=== PATIENT | female | born 1945 | race Caucasian/White ===

== ENCOUNTER 2023-10-25 20:36 | Inpatient (IN) | payer BC, MEDICARE ==
[~2023-10-25] VITALS: Ht 152.4 cm; Wt 130.6 kg
[2023-10-25 21:06] LABS: BASO # 0.1 10^3/uL (0.0-0.2); BASO % 0.2 % (0.0-1.0); EOS # 0.1 10^3/uL (0.0-0.5); EOS % 0.3 % (0.0-3.0); HEMATOCRIT 27.1 % (36.0-47.0); HEMOGLOBIN 9.4 g/dl (12.0-15.5); LYMPH # 0.5 10^3/uL (1.5-5.0); LYMPH % 1.6 % (24.0-44.0); MEAN CORPUSCULAR HEMOGLOBIN 29.6 pg (27.0-33.0); MEAN CORPUSCULAR HGB CONC 34.7 g/dl (32.0-36.5); MEAN CORPUSCULAR VOLUME 85.2 fl (80.0-96.0); MONO # 0.7 10^3/uL (0.0-0.8); MONO % 2.1 % (2.0-8.0); NEUTROPHILS # 31.6 10^3/uL (1.5-8.5); NEUTROPHILS % 93.1 % (36.0-66.0); PLATELET COUNT, AUTOMATED 482 10^3/uL (150-450); RED BLOOD COUNT 3.18 10^6/uL (4.00-5.40)
[2023-10-25 21:20] LABS: WHITE BLOOD COUNT 33.9 10^3/uL (4.0-10.0)
[2023-10-25 21:40] LABS: CK-MB VALUE MASS < 1.0 NG/ML (<3.6); RSV AMPLIFICATION NEGATIVE (NEGATIVE)
[2023-10-25 21:41] LABS: LIPASE 24 U/L (12-53)
[2023-10-25 21:43] LABS: ALBUMIN 1.8 G/DL (3.2-5.2); ALKALINE PHOSPHATASE 121 U/L (46-116); ALT/SGPT 15 U/L (7.0-40); AST/SGOT 19 U/L (<34); BILIRUBIN,DIRECT 0.2 MG/DL (<0.4); BILIRUBIN,TOTAL 0.3 MG/DL (0.3-1.2); BLOOD UREA NITROGEN 41 MG/DL (9-23); CALCIUM LEVEL 8.2 MG/DL (8.3-10.6); CARBON DIOXIDE LEVEL 22 MMOL/L (20-31); CHLORIDE LEVEL 95 MMOL/L (98-107); CREATININE FOR GFR 2.16 MG/DL (0.55-1.30); GLOMERULAR FILTRATION RATE 23.6 (>39); GLUCOSE, FASTING 214 MG/DL (74-106); MAGNESIUM LEVEL 1.4 MG/DL (1.8-2.4); POTASSIUM SERUM 4.2 MMOL/L (3.5-5.1); SODIUM LEVEL 128 MMOL/L (136-145); TOTAL PROTEIN 5.5 G/DL (5.7-8.2)
[2023-10-25 21:44] LABS: THYROID STIMULATING HORMONE 1.428 uIU/ML (0.55-4.78)
[2023-10-25 21:45] LABS: FREE T4 0.68 NG/DL (0.89-1.76)
[2023-10-25 21:47] LABS: SALICYLATE LEVEL < 3.0 MG/DL (<30)
[2023-10-25 21:54] LABS: CPK CREATINE PHOSPHOKINASE 29 U/L (34-145); MB/CK RELATIVE INDEX 3.44 (< OR =4)
[2023-10-25 22:12] LABS: PARTIAL THROMBOPLASTIN TIME 32.3 SECONDS (24.8-34.2)
[2023-10-25 22:16] LABS: INR 1.45; PROTHROMBIN TIME 17.2 SECONDS (12.5-14.5)
[2023-10-25] MEDS: MAG SULF 1GM/100ML (MAG RUN) 1 GM in IV 1 EA IV ONE (22:35)
[2023-10-25] MEDS ORDERED: propofoL 200 MG/20 ML VIAL As Ordered ONE (22:53)
[2023-10-25] MEDS ORDERED: MIDAZOLAM INJ 2MG/2ML VIAL As Ordered ONE (22:53)
[2023-10-25] MEDS ORDERED: LIDOCAINE 2% 100MG/5ML SDV (FOR ANES.) As Ordered ONE (22:53)
[2023-10-25] MEDS ORDERED: fentaNYL 250 MCG/5 ML INJECTION As Ordered ONE (22:53)
[2023-10-25] MEDS ORDERED: ONDANSETRON 4MG 2ML VIAL As Ordered ONE (22:53)
[2023-10-25] MEDS ORDERED: ROCURONIUM BROMIDE 50MG/5ML VIAL As Ordered ONE (22:53)
[2023-10-25] MEDS: PIPERACILLIN/TAZOBACTAM SOD 4.5 GM in D5W MINI-BAG PLUS 50 ML IV ONE (22:55)
[2023-10-25] MEDS: NS 1,000 ML IV SCH (22:55)
[2023-10-25] MEDS ORDERED: MORPHINE 2 MG/ML 1ML VIAL IV PRN ×2 (23:10)
[2023-10-25 23:25] LABS: CK-MB VALUE MASS < 1.0 NG/ML (<3.6); CPK CREATINE PHOSPHOKINASE 45 U/L (34-145); MB/CK RELATIVE INDEX 2.22 (< OR =4)
[2023-10-25] MEDS ORDERED: ETOMIDATE INJ 20MG/10ML VIAL As Ordered ONE (23:38)
[2023-10-26] VITALS (27 sets, daily range): BP systolic 96–171; BP diastolic 51–72; TEMP 96.8–98; O2SAT 95–98
[2023-10-26] MEDS ORDERED: ACETAMINOPHEN 1000MG 100ML IV BAG As Ordered ONE (00:54)
[2023-10-26] MEDS ORDERED: hydrALAZINE 20MG/ML 1ML VIAL As Ordered ONE (01:03)
[2023-10-26] MEDS ORDERED: SUGAMMADEX SODIUM 500 MG/5 ML VIAL (BRIDION) As Ordered ONE (01:33)
[2023-10-26] MEDS ORDERED: GLUCAGON INJ 1MG VIAL SC PRN (02:55)
[2023-10-26] MEDS ORDERED: GLUCOSE 4 GM CHEW PO PRN (02:55)
[2023-10-26] MEDS: MORPHINE 2 MG/ML 1ML VIAL IV PRN (03:06)
[2023-10-26] MEDS ORDERED: fentaNYL 100 MCG/2 ML INJECTION IV PRN (03:10)
[2023-10-26] MEDS ORDERED: ONDANSETRON 4MG 2ML VIAL IV PRN (03:10)
[2023-10-26] MEDS ORDERED: MORPHINE 2 MG/ML 1ML VIAL IV PRN (03:10)
[2023-10-26] MEDS ORDERED: oxyCODONE 5MG TAB PO PRN (03:10)
[2023-10-26] MEDS: NS 1,000 ML IV SCH (03:26)
[2023-10-26] MEDS ORDERED: ARIC1TAB PO (03:43)
[2023-10-26] MEDS ORDERED: GLIP5TAB17 PO (03:43)
[2023-10-26] MEDS ORDERED: SYNT100T PO (03:43)
[2023-10-26] MEDS ORDERED: TRAZ-186 PO (03:43)
[2023-10-26] MEDS ORDERED: METF500T13 PO (03:43)
[2023-10-26] MEDS ORDERED: CITA20TA6 PO (03:43)
[2023-10-26] MEDS ORDERED: VERA240C3 PO (03:43)
[2023-10-26] MEDS ORDERED: MULT-40 PO (03:43)
[2023-10-26] MEDS ORDERED: OSTE5TAB PO (03:43)
[2023-10-26] MEDS ORDERED: HOME MED LIST COMPLETE! XX SCH (03:45)
[2023-10-26 03:50] LABS: HEMATOCRIT 26.8 % (36.0-47.0); MEAN CORPUSCULAR HEMOGLOBIN 29.1 pg (27.0-33.0); MEAN CORPUSCULAR HGB CONC 33.6 g/dl (32.0-36.5); MEAN CORPUSCULAR VOLUME 86.7 fl (80.0-96.0); PLATELET COUNT, AUTOMATED 436 10^3/uL (150-450); RED BLOOD COUNT 3.09 10^6/uL (4.00-5.40); WHITE BLOOD COUNT 26.7 10^3/uL (4.0-10.0)
[2023-10-26 04:16] LABS: ALBUMIN 1.6 G/DL (3.2-5.2); BILIRUBIN,TOTAL 0.3 MG/DL (0.3-1.2); CALCIUM LEVEL 7.5 MG/DL (8.3-10.6); CREATININE FOR GFR 2.32 MG/DL (0.55-1.30); GLOMERULAR FILTRATION RATE 21.7 (>39); MAGNESIUM LEVEL 1.3 MG/DL (1.8-2.4); POTASSIUM SERUM 4.3 MMOL/L (3.5-5.1); TOTAL PROTEIN 5.2 G/DL (5.7-8.2)
[2023-10-26] MEDS: FLUCONAZOLE 400 MG in IV 1 EA IV ONE (04:21)
[2023-10-26] MEDS: PIPERACILLIN/TAZOBACTAM SOD 2.25 GM in D5W MINI-BAG PLUS 50 ML IV SCH ×2 (04:27→12:23)
[2023-10-26] MEDS ORDERED: PIPERACILLIN/TAZOBACTAM SOD 3.375 GM in D5W MINI-BAG PLUS 50 ML IV SCH (05:00)
[2023-10-26] MEDS: INSULIN LISPRO (NovoLOG) PER UNIT SC SCH (06:00)
[2023-10-26] MEDS: PANTOPRAZOLE 40MG VIAL IV SCH (08:03)
[2023-10-26] MEDS: HYDROMORPHONE HCL 0.5 MG/ 0.5 ML SYRINGE IV PRN ×2 (08:04→21:14)
[2023-10-26] MEDS: SENOKOT S TAB PO SCH (08:04)
[2023-10-26] MEDS: ENOXAPARIN 30MG/0.3ML SYRINGE (J1650 PER 10MG) SC SCH (08:04)
[2023-10-26] MEDS: MAG SULF 1GM/100ML (MAG RUN) 1 GM in IV 1 EA IV ONE (09:39)
[2023-10-26] MEDS: LR 500 ML IV ONE (12:46)
[2023-10-26 14:43] LABS: CALCIUM LEVEL 7.5 MG/DL (8.3-10.6); CREATININE FOR GFR 2.73 MG/DL (0.55-1.30); POTASSIUM SERUM 4.8 MMOL/L (3.5-5.1)
[2023-10-26] MEDS: NS 1,000 ML IV ONE (15:41)
[2023-10-27] VITALS (20 sets, daily range): BP systolic 139–206; BP diastolic 63–83; TEMP 97.4–98.7; O2SAT 96–99
[2023-10-27 05:42] LABS: MEAN CORPUSCULAR HGB CONC 32.5 g/dl (32.0-36.5); MEAN CORPUSCULAR VOLUME 89.2 fl (80.0-96.0); PLATELET COUNT, AUTOMATED 372 10^3/uL (150-450); RED BLOOD COUNT 2.31 10^6/uL (4.00-5.40); WHITE BLOOD COUNT 20.6 10^3/uL (4.0-10.0)
[2023-10-27 05:44] LABS: HEMATOCRIT 20.6 % (36.0-47.0); HEMOGLOBIN 6.7 g/dl (12.0-15.5)
[2023-10-27 06:08] LABS: ALBUMIN 1.3 G/DL (3.2-5.2); ALKALINE PHOSPHATASE 87 U/L (46-116); ALT/SGPT 17 U/L (7.0-40); AST/SGOT 25 U/L (<34); BILIRUBIN,TOTAL < 0.2 MG/DL (0.3-1.2); BLOOD UREA NITROGEN 52 MG/DL (9-23); CALCIUM LEVEL 7.1 MG/DL (8.3-10.6); CARBON DIOXIDE LEVEL 21 MMOL/L (20-31); CHLORIDE LEVEL 104 MMOL/L (98-107); CREATININE FOR GFR 3.34 MG/DL (0.55-1.30); GLOMERULAR FILTRATION RATE 14.3 (>39); GLUCOSE, FASTING 137 MG/DL (74-106); MAGNESIUM LEVEL 1.6 MG/DL (1.8-2.4); POTASSIUM SERUM 4.7 MMOL/L (3.5-5.1); SODIUM LEVEL 134 MMOL/L (136-145); TOTAL PROTEIN 4.6 G/DL (5.7-8.2)
[2023-10-27] MEDS: ONDANSETRON 4MG 2ML VIAL IV PRN (06:09)
[2023-10-27] MEDS: FLUCONAZOLE 200 MG in IV 1 EA IV SCH (06:38)
[2023-10-27 08:26] LABS: HEMOGLOBIN 6.9 g/dl (12.0-15.5)
[2023-10-27] MEDS: NS 1,000 ML IV ONE (08:32)
[2023-10-27] MEDS: MAG SULF 1GM/100ML (MAG RUN) 1 GM in IV 1 EA IV ONE (10:49)
[2023-10-27] MEDS: amLODIPine 5 MG TAB PO SCH ×2 (11:49→20:34)
[2023-10-27] MEDS: cloNIDine 0.2 MG TAB PO ONE (13:58)
[2023-10-27] MEDS: **hydrALAZINE HCL** 25 MG TAB PO SCH (18:00)
[2023-10-27] MEDS: NS 1,000 ML IV SCH (20:35)
[2023-10-27 20:41] LABS: HEMATOCRIT 29.7 % (36.0-47.0)
[2023-10-27 20:42] LABS: HEMOGLOBIN 9.8 g/dl (12.0-15.5)
[2023-10-28] VITALS (9 sets, daily range): BP systolic 120–182; BP diastolic 51–122; TEMP 97.4–98.3; O2SAT 96–99
[2023-10-28] MEDS ORDERED: METOPROLOL 5 MG/5 ML VIAL IV STA (00:57)
[2023-10-28 04:09] LABS: HEMATOCRIT 27.2 % (36.0-47.0); HEMOGLOBIN 9.2 g/dl (12.0-15.5); MEAN CORPUSCULAR HGB CONC 33.8 g/dl (32.0-36.5); MEAN CORPUSCULAR VOLUME 88.6 fl (80.0-96.0); PLATELET COUNT, AUTOMATED 308 10^3/uL (150-450); RED BLOOD COUNT 3.07 10^6/uL (4.00-5.40)
[2023-10-28 04:47] LABS: ALBUMIN 1.3 G/DL (3.2-5.2); BILIRUBIN,TOTAL 0.4 MG/DL (0.3-1.2); CALCIUM LEVEL 7.3 MG/DL (8.3-10.6); CREATININE FOR GFR 3.77 MG/DL (0.55-1.30); GLOMERULAR FILTRATION RATE 12.4 (>39); MAGNESIUM LEVEL 1.8 MG/DL (1.8-2.4); POTASSIUM SERUM 4.4 MMOL/L (3.5-5.1); TOTAL PROTEIN 4.7 G/DL (5.7-8.2)
[2023-10-28] MEDS: FUROSEMIDE 100MG/10ML VIAL IV ONE (11:13)
[2023-10-28] MEDS: SODIUM BICARBONATE 150 MEQ in STERILE WATER LITER BAG 1,000 ML IV SCH (12:34)
[2023-10-29] VITALS (10 sets, daily range): BP systolic 144–170; BP diastolic 70–93; TEMP 97.4–98.9; O2SAT 94–100
[2023-10-29 06:08] LABS: HEMATOCRIT 27.2 % (36.0-47.0); HEMOGLOBIN 9.1 g/dl (12.0-15.5); MEAN CORPUSCULAR HEMOGLOBIN 29.5 pg (27.0-33.0); MEAN CORPUSCULAR HGB CONC 33.5 g/dl (32.0-36.5); MEAN CORPUSCULAR VOLUME 88.3 fl (80.0-96.0); PLATELET COUNT, AUTOMATED 297 10^3/uL (150-450); RED BLOOD COUNT 3.08 10^6/uL (4.00-5.40); WHITE BLOOD COUNT 16.5 10^3/uL (4.0-10.0)
[2023-10-29 06:36] LABS: ALBUMIN 1.2 G/DL (3.2-5.2); BILIRUBIN,TOTAL 0.3 MG/DL (0.3-1.2); CALCIUM LEVEL 7.5 MG/DL (8.3-10.6); CREATININE FOR GFR 4.19 MG/DL (0.55-1.30); MAGNESIUM LEVEL 1.7 MG/DL (1.8-2.4); TOTAL PROTEIN 4.6 G/DL (5.7-8.2)
[2023-10-29] MEDS: MAG SULF 1GM/100ML (MAG RUN) 1 GM in IV 1 EA IV ONE (10:15)
[2023-10-29] MEDS: **hydrALAZINE** 50 MG TAB PO SCH (12:22)
[2023-10-29] MEDS: ACETAMINOPHEN *IV* 1,000 MG in IV 1 EA IV PRN (13:10)
[2023-10-29] MEDS: HYDROMORPHONE HCL 0.5 MG/ 0.5 ML SYRINGE IV PRN (14:10)
[2023-10-29 15:29] LABS: CK-MB VALUE MASS < 1.0 NG/ML (<3.6); CPK CREATINE PHOSPHOKINASE 17 U/L (34-145); MB/CK RELATIVE INDEX 5.88 (< OR =4)
[2023-10-29 18:46] LABS: CK-MB VALUE MASS < 1.0 NG/ML (<3.6)
[2023-10-29 18:49] LABS: CPK CREATINE PHOSPHOKINASE 24 U/L (34-145); MB/CK RELATIVE INDEX 4.16 (< OR =4)
[2023-10-30] VITALS (25 sets, daily range): BP systolic 142–180; BP diastolic 57–77; TEMP 97–98.3; O2SAT 95–99
[2023-10-30 05:20] LABS: HEMATOCRIT 26.7 % (36.0-47.0); HEMOGLOBIN 9.3 g/dl (12.0-15.5); MEAN CORPUSCULAR HEMOGLOBIN 29.9 pg (27.0-33.0); MEAN CORPUSCULAR HGB CONC 34.8 g/dl (32.0-36.5); MEAN CORPUSCULAR VOLUME 85.9 fl (80.0-96.0); PLATELET COUNT, AUTOMATED 296 10^3/uL (150-450); RED BLOOD COUNT 3.11 10^6/uL (4.00-5.40); WHITE BLOOD COUNT 17.4 10^3/uL (4.0-10.0)
[2023-10-30 06:01] LABS: ALBUMIN 1.1 G/DL (3.2-5.2); BILIRUBIN,TOTAL 0.3 MG/DL (0.3-1.2); CALCIUM LEVEL 7.4 MG/DL (8.3-10.6); CREATININE FOR GFR 4.18 MG/DL (0.55-1.30); MAGNESIUM LEVEL 1.7 MG/DL (1.8-2.4); POTASSIUM SERUM 3.7 MMOL/L (3.5-5.1); TOTAL PROTEIN 4.5 G/DL (5.7-8.2)
[2023-10-30] MEDS: MAG SULF 1GM/100ML (MAG RUN) 1 GM in IV 1 EA IV ONE (08:22)
[2023-10-30] MEDS: SUCRALFATE 1 GM TAB PO SCH (11:14)
[2023-10-30] MEDS: SODIUM BICARBONATE 75 MEQ, POTASSIUM CHLORIDE INJ 10 MEQ in NS 0.45% 1,000 ML IV SCH (12:36)
[2023-10-31] VITALS (8 sets, daily range): BP systolic 133–165; BP diastolic 52–70; TEMP 97.3–98; O2SAT 92–97
[2023-10-31 06:53] LABS: HEMATOCRIT 26.6 % (36.0-47.0); HEMOGLOBIN 9.2 g/dl (12.0-15.5); MEAN CORPUSCULAR HEMOGLOBIN 29.8 pg (27.0-33.0); MEAN CORPUSCULAR HGB CONC 34.6 g/dl (32.0-36.5); MEAN CORPUSCULAR VOLUME 86.1 fl (80.0-96.0); PLATELET COUNT, AUTOMATED 304 10^3/uL (150-450); RED BLOOD COUNT 3.09 10^6/uL (4.00-5.40); WHITE BLOOD COUNT 17.7 10^3/uL (4.0-10.0)
[2023-10-31 07:31] LABS: ALBUMIN 1.1 G/DL (3.2-5.2); BILIRUBIN,TOTAL 0.2 MG/DL (0.3-1.2); CALCIUM LEVEL 7.6 MG/DL (8.3-10.6); CREATININE FOR GFR 3.91 MG/DL (0.55-1.30); GLOMERULAR FILTRATION RATE 11.9 (>39); MAGNESIUM LEVEL 1.7 MG/DL (1.8-2.4); POTASSIUM SERUM 3.3 MMOL/L (3.5-5.1); TOTAL PROTEIN 4.7 G/DL (5.7-8.2)
[2023-10-31] MEDS: MAG SULF 1GM/100ML (MAG RUN) 1 GM in IV 1 EA IV ONE (09:30)
[2023-10-31] MEDS: KCL 20MEQ in NS 1000ML 1,000 ML IV SCH (09:31)
[2023-10-31] MEDS ORDERED: LIDOCAINE 1% MDV 20ML VIAL As Ordered ONE (11:17)
[2023-10-31] MEDS: oxyCODONE 5MG TAB PO SCH (12:49)
[2023-10-31] MEDS: AMINO AC/ELECTROLYTE/DEX/CALC 2,000 ML IV SCH (18:46)
[2023-10-31] MEDS: FAT EMULSION IV 250 ML IV ONE (18:47)
[2023-10-31] MEDS: HYDROMORPHONE HCL 0.5 MG/ 0.5 ML SYRINGE IV PRN (18:56)
[2023-11-01] VITALS (14 sets, daily range): BP systolic 157–170; BP diastolic 68–76; TEMP 97.3–97.8; O2SAT 94–98
[2023-11-01] MEDS: SODIUM CHLORIDE 0.9% INJ 10 ML SYR IV SCH (00:29)
[2023-11-01 06:10] LABS: MEAN CORPUSCULAR HEMOGLOBIN 29.9 pg (27.0-33.0); MEAN CORPUSCULAR HGB CONC 33.3 g/dl (32.0-36.5); MEAN CORPUSCULAR VOLUME 89.7 fl (80.0-96.0); PLATELET COUNT, AUTOMATED 282 10^3/uL (150-450); RED BLOOD COUNT 3.01 10^6/uL (4.00-5.40)
[2023-11-01 06:38] LABS: BILIRUBIN,TOTAL 0.2 MG/DL (0.3-1.2); CALCIUM LEVEL 7.5 MG/DL (8.3-10.6); CREATININE FOR GFR 3.53 MG/DL (0.55-1.30); GLOMERULAR FILTRATION RATE 13.4 (>39); MAGNESIUM LEVEL 1.7 MG/DL (1.8-2.4); POTASSIUM SERUM 3.6 MMOL/L (3.5-5.1); TOTAL PROTEIN 4.3 G/DL (5.7-8.2)
[2023-11-01] MEDS: MAG SULF 1GM/100ML (MAG RUN) 1 GM in IV 1 EA IV ONE (08:15)
[2023-11-01 12:27] LABS: PHOSPHORUS LEVEL 4.8 MG/DL (2.4-5.1)
[2023-11-01] MEDS: ACETAMINOPHEN *IV* 1,000 MG in IV 1 EA IV ONE (20:02)
[2023-11-01] MEDS: FAT EMULSION IV 250 ML IV ONE (20:43)
[2023-11-01] MEDS: AMINO AC/ELECTROLYTE/DEX/CALC 2,000 ML IV SCH (20:43)
[2023-11-02 05:39] VITALS: BP 133/56; TEMP 97.7; O2SAT 97
[2023-11-02] MEDS: LEVEMIR (INSULIN DETEMIR) 1 UNITS/0.01ML SC SCH (10:09)
[2023-11-02 12:00] VITALS: BP 147/56; TEMP 98.1; O2SAT 97
[2023-11-02 12:20] LABS: ALBUMIN 0.9 G/DL (3.2-5.2); CALCIUM LEVEL 7.6 MG/DL (8.3-10.6); CREATININE FOR GFR 3.4 MG/DL (0.55-1.30); PHOSPHORUS LEVEL 4.9 MG/DL (2.4-5.1); POTASSIUM SERUM 4.1 MMOL/L (3.5-5.1)
[2023-11-02] MEDS: oxyCODONE 5MG TAB PO SCH (13:00)
[2023-11-02 18:00] VITALS: BP 148/57; TEMP 97.9; O2SAT 96
[2023-11-02] MEDS: MULTIVITAMIN -ADULT INJECTION 10 ML, ZINC/COPPER/MANGANESE/SELENIUM 1 ML in AMINO AC/EL... IV SCH (19:40)
[2023-11-02] MEDS: FAT EMULSION IV 250 ML IV ONE (19:40)
[2023-11-02 21:50] VITALS: BP 150/55; TEMP 97.9; O2SAT 97
[2023-11-03 05:44] LABS: ALBUMIN 0.9 G/DL (3.2-5.2); CALCIUM LEVEL 8.1 MG/DL (8.3-10.6); CREATININE FOR GFR 3.53 MG/DL (0.55-1.30); GLOMERULAR FILTRATION RATE 13.4 (>39); MAGNESIUM LEVEL 1.7 MG/DL (1.8-2.4); PHOSPHORUS LEVEL 4.8 MG/DL (2.4-5.1); POTASSIUM SERUM 4.2 MMOL/L (3.5-5.1)
[2023-11-03 06:34] VITALS: BP 151/74; TEMP 97.9; O2SAT 96
[2023-11-03] MEDS: MAG SULF 1GM/100ML (MAG RUN) 1 GM in IV 1 EA IV ONE (08:59)
[2023-11-03] MEDS: FLUCONAZOLE 100 MG TAB PO SCH (09:01)
[2023-11-03 09:40] VITALS: O2SAT 94
[2023-11-03 09:48] LABS: ABG BASE EXCESS -1.5 (-2.0-2.0); ABG HCO3 23.8 MMOL/L (22.0-26.0); ABG O2 SATURATION 95.7 % (95.0-99.0); ABG PARTIAL PRESSURE CO2 42.4 mmHg (35.0-45.0); ABG PARTIAL PRESSURE O2 78.3 mmHg (75.0-100.0); ABG STANDARD HCO3 23.2 MMOL/L. (22.0-26.0); ABG TOTAL CO2 25.1 MMOL/L (23.0-31.0); ABG pH (ARTERIAL) 7.367 UNITS (7.350-7.450)
[2023-11-03] MEDS: GASTROGRAFIN SOLUTION 30ML PO SCH (11:58)
[2023-11-03] MEDS: NS 1,000 ML IV SCH (12:00)
[2023-11-03 13:15] VITALS: BP 152/103; TEMP 97.5; O2SAT 94
[2023-11-03 13:20] VITALS: BP 146/59
[2023-11-03] MEDS ORDERED: ISOVUE-370 76% 100ML VIAL As Ordered ONE (13:27)
[2023-11-03] MEDS: AMINO AC/ELECTROLYTE/DEX/CALC 2,000 ML IV SCH (17:46)
[2023-11-03] MEDS: FAT EMULSION IV 250 ML IV ONE (17:46)
[2023-11-03 17:58] VITALS: BP 150/60
[2023-11-03 20:37] VITALS: BP 154/59; TEMP 98.4; O2SAT 93
[2023-11-03] MEDS: SODIUM CHLORIDE 0.9% INJ 10 ML SYR IV PRN (21:55)
[2023-11-04 06:45] LABS: HEMATOCRIT 25.1 % (36.0-47.0); HEMOGLOBIN 8.2 g/dl (12.0-15.5); MEAN CORPUSCULAR HEMOGLOBIN 29.7 pg (27.0-33.0); MEAN CORPUSCULAR HGB CONC 32.7 g/dl (32.0-36.5); MEAN CORPUSCULAR VOLUME 90.9 fl (80.0-96.0); PLATELET COUNT, AUTOMATED 239 10^3/uL (150-450); RED BLOOD COUNT 2.76 10^6/uL (4.00-5.40); WHITE BLOOD COUNT 20.5 10^3/uL (4.0-10.0)
[2023-11-04 06:54] VITALS: BP 181/68; TEMP 97.9; O2SAT 93
[2023-11-04 07:07] LABS: CALCIUM LEVEL 7.4 MG/DL (8.3-10.6); CREATININE FOR GFR 3.36 MG/DL (0.55-1.30); GLOMERULAR FILTRATION RATE 14.2 (>39); POTASSIUM SERUM 4.2 MMOL/L (3.5-5.1)
[2023-11-04 07:24] LABS: ATYPICAL LYMPH 1 % (0-5); EOSINOPHILS 4 % (0-3); LYMPHOCYTES 3 % (16-44); METAMYELOCYTES 2 % (0-0); MONOCYTES 5 % (0-5); NEUTROPHILS 83 % (28-66)
[2023-11-04 07:27] LABS: PLATELET CLUMPS SMALL AMT; PLATELET ESTIMATE NORMAL (NORMAL)
[2023-11-04] MEDS ORDERED: ISOVUE-300 61% 100ML VIAL As Ordered ONE (09:56)
[2023-11-04] MEDS ORDERED: HYDROMORPHONE HCL 0.5 MG/ 0.5 ML SYRINGE As Ordered ONE (10:30)
[2023-11-04 14:00] VITALS: BP 157/61; TEMP 97.7; O2SAT 97
[2023-11-04] MEDS: oxyCODONE 5MG TAB PO SCH (16:00)
[2023-11-04] MEDS ORDERED: INSULIN LISPRO (NovoLOG) PER UNIT SC SCH (18:00)
[2023-11-04] MEDS: FAT EMULSION IV 250 ML IV ONE (18:35)
[2023-11-04] MEDS: MULTIVITAMIN -ADULT INJECTION 10 ML, ZINC/COPPER/MANGANESE/SELENIUM 1 ML in AMINO AC/EL... IV SCH (18:35)
[2023-11-04 19:57] VITALS: BP 153/62; TEMP 97.9; O2SAT 95
[2023-11-05 06:00] VITALS: BP 158/88; TEMP 98.4; O2SAT 94
[2023-11-05 06:53] LABS: BASO % 0.2 % (0.0-1.0); EOS # 0.6 10^3/uL (0.0-0.5); EOS % 3.5 % (0.0-3.0); HEMATOCRIT 23.4 % (36.0-47.0); HEMOGLOBIN 7.6 g/dl (12.0-15.5); LYMPH # 0.7 10^3/uL (1.5-5.0); MEAN CORPUSCULAR HEMOGLOBIN 29.5 pg (27.0-33.0); MEAN CORPUSCULAR HGB CONC 32.5 g/dl (32.0-36.5); MEAN CORPUSCULAR VOLUME 90.7 fl (80.0-96.0); MONO # 1.5 10^3/uL (0.0-0.8); MONO % 8.4 % (2.0-8.0); NEUTROPHILS % 80.1 % (36.0-66.0); PLATELET COUNT, AUTOMATED 237 10^3/uL (150-450); RED BLOOD COUNT 2.58 10^6/uL (4.00-5.40); WHITE BLOOD COUNT 17.5 10^3/uL (4.0-10.0)
[2023-11-05 07:20] LABS: CALCIUM LEVEL 8.2 MG/DL (8.3-10.6); CREATININE FOR GFR 3.2 MG/DL (0.55-1.30); POTASSIUM SERUM 4.2 MMOL/L (3.5-5.1)
[2023-11-05 08:17] LABS: MAGNESIUM LEVEL 1.8 MG/DL (1.8-2.4)
[2023-11-05] MEDS: LEVEMIR (INSULIN DETEMIR) 1 UNITS/0.01ML SC SCH (08:29)
[2023-11-05 14:00] VITALS: BP 156/53; TEMP 98.4; O2SAT 93
[2023-11-05] MEDS: AMINO AC/ELECTROLYTE/DEX/CALC 2,000 ML IV SCH (17:44)
[2023-11-05] MEDS: FAT EMULSION IV 250 ML IV ONE (17:44)
[2023-11-05] MEDS ORDERED: INSULIN LISPRO (NovoLOG) PER UNIT SC SCH (18:00)
[2023-11-05 19:48] VITALS: BP 161/62; TEMP 97.9; O2SAT 93
[2023-11-06] VITALS (7 sets, daily range): BP systolic 154–165; BP diastolic 57–69; TEMP 98.2–98.6; O2SAT 92–94
[2023-11-06 06:07] LABS: BASO # 0.1 10^3/uL (0.0-0.2); BASO % 0.4 % (0.0-1.0); EOS # 0.7 10^3/uL (0.0-0.5); EOS % 4.5 % (0.0-3.0); HEMATOCRIT 22.7 % (36.0-47.0); HEMOGLOBIN 7.4 g/dl (12.0-15.5); LYMPH # 0.9 10^3/uL (1.5-5.0); LYMPH % 5.6 % (24.0-44.0); MEAN CORPUSCULAR HEMOGLOBIN 29.8 pg (27.0-33.0); MEAN CORPUSCULAR HGB CONC 32.6 g/dl (32.0-36.5); MEAN CORPUSCULAR VOLUME 91.5 fl (80.0-96.0); MONO # 1.6 10^3/uL (0.0-0.8); MONO % 9.6 % (2.0-8.0); NEUTROPHILS # 12.3 10^3/uL (1.5-8.5); NEUTROPHILS % 75.5 % (36.0-66.0); PLATELET COUNT, AUTOMATED 281 10^3/uL (150-450); RED BLOOD COUNT 2.48 10^6/uL (4.00-5.40); WHITE BLOOD COUNT 16.3 10^3/uL (4.0-10.0)
[2023-11-06 06:41] LABS: CALCIUM LEVEL 8.4 MG/DL (8.3-10.6); CREATININE FOR GFR 3.06 MG/DL (0.55-1.30); GLOMERULAR FILTRATION RATE 15.8 (>39); POTASSIUM SERUM 4.2 MMOL/L (3.5-5.1)
[2023-11-06] MEDS: LEVEMIR (INSULIN DETEMIR) 1 UNITS/0.01ML SC SCH (08:27)
[2023-11-06] MEDS ORDERED: INSULIN LISPRO (NovoLOG) PER UNIT SC SCH (18:00)
[2023-11-06] MEDS: FAT EMULSION IV 250 ML IV ONE (18:03)
[2023-11-06] MEDS: AMINO AC/ELECTROLYTE/DEX/CALC 2,000 ML IV ONE (18:03)
[2023-11-06 19:07] LABS: MEAN CORPUSCULAR HEMOGLOBIN 29.1 pg (27.0-33.0); MEAN CORPUSCULAR VOLUME 90.9 fl (80.0-96.0); PLATELET COUNT, AUTOMATED 309 10^3/uL (150-450); RED BLOOD COUNT 2.75 10^6/uL (4.00-5.40); WHITE BLOOD COUNT 16.7 10^3/uL (4.0-10.0)
[2023-11-07 06:00] VITALS: BP 153/62; TEMP 97.9; O2SAT 97
[2023-11-07 06:06] LABS: HEMATOCRIT 25.8 % (36.0-47.0); HEMOGLOBIN 8.3 g/dl (12.0-15.5); MEAN CORPUSCULAR HGB CONC 32.2 g/dl (32.0-36.5); MEAN CORPUSCULAR VOLUME 90.2 fl (80.0-96.0); PLATELET COUNT, AUTOMATED 313 10^3/uL (150-450); RED BLOOD COUNT 2.86 10^6/uL (4.00-5.40)
[2023-11-07 06:33] LABS: CALCIUM LEVEL 8.3 MG/DL (8.3-10.6); CREATININE FOR GFR 2.95 MG/DL (0.55-1.30); GLOMERULAR FILTRATION RATE 16.5 (>39); POTASSIUM SERUM 4.2 MMOL/L (3.5-5.1)
[2023-11-07 06:53] LABS: ATYPICAL LYMPH 4 % (0-5); EOSINOPHILS 6 % (0-3); LYMPHOCYTES 6 % (16-44); METAMYELOCYTES 2 % (0-0); MONOCYTES 8 % (0-5); NEUTROPHILS 72 % (28-66); PROMYELOCYTES 1 % (0-0)
[2023-11-07 06:54] LABS: PLATELET ESTIMATE NORMAL (NORMAL)
[2023-11-07 13:57] VITALS: BP 162/68; TEMP 97.7; O2SAT 95
[2023-11-07] MEDS: AMINO AC/ELECTROLYTE/DEX/CALC 1,000 ML IV SCH (15:21)
[2023-11-07] MEDS: AMINO AC/ELECTROLYTE/DEX/CALC 2,000 ML IV SCH (18:40)
[2023-11-07] MEDS: FAT EMULSION IV 250 ML IV ONE (18:41)
[2023-11-07 20:00] VITALS: O2SAT 95
[2023-11-07 20:13] VITALS: BP 153/122; TEMP 97.9; O2SAT 94
[2023-11-07 21:40] VITALS: BP 167/79
[2023-11-08] MEDS: traZODone 25MG PER 1/2 TABLET PO ONE (00:37)
[2023-11-08] MEDS: METOCLOPRAMIDE INJ 10MG/2ML VIAL IV ONE (02:00)
[2023-11-08 06:00] VITALS: BP 164/57; TEMP 97.9; O2SAT 95
[2023-11-08 07:48] LABS: BASO # 0.1 10^3/uL (0.0-0.2); BASO % 0.9 % (0.0-1.0); EOS # 0.5 10^3/uL (0.0-0.5); EOS % 4.6 % (0.0-3.0); LYMPH # 0.7 10^3/uL (1.5-5.0); MEAN CORPUSCULAR HEMOGLOBIN 28.8 pg (27.0-33.0); MEAN CORPUSCULAR VOLUME 89.9 fl (80.0-96.0); MONO # 1.2 10^3/uL (0.0-0.8); MONO % 10.1 % (2.0-8.0); NEUTROPHILS # 8.4 10^3/uL (1.5-8.5); NEUTROPHILS % 74.3 % (36.0-66.0); PLATELET COUNT, AUTOMATED 337 10^3/uL (150-450); RED BLOOD COUNT 2.78 10^6/uL (4.00-5.40); WHITE BLOOD COUNT 11.4 10^3/uL (4.0-10.0)
[2023-11-08 08:00] VITALS: BP 200/60; TEMP 98; O2SAT 95
[2023-11-08 08:22] LABS: CALCIUM LEVEL 8.4 MG/DL (8.3-10.6); CREATININE FOR GFR 2.78 MG/DL (0.55-1.30); GLOMERULAR FILTRATION RATE 17.6 (>39); POTASSIUM SERUM 4.4 MMOL/L (3.5-5.1)
[2023-11-08] MEDS: FUROSEMIDE 40MG/4ML VIAL IV ONE (13:16)
[2023-11-08] MEDS: AMINO AC/ELECTROLYTE/DEX/CALC 1,000 ML IV SCH (16:39)
[2023-11-08] MEDS: INSULIN LISPRO (NovoLOG) PER UNIT SC SCH (18:00)
[2023-11-08] MEDS: FAT EMULSION IV 250 ML IV ONE (18:56)
[2023-11-08] MEDS: AMINO AC/ELECTROLYTE/DEX/CALC 2,000 ML IV SCH (18:56)
[2023-11-08 20:38] VITALS: BP 154/85; TEMP 97.5; O2SAT 95
[2023-11-08] MEDS: traZODone 25MG PER 1/2 TABLET PO SCH (21:43)
[2023-11-09 06:00] VITALS: BP 157/63; TEMP 97.4; O2SAT 94
[2023-11-09] MEDS: LEVOTHYROXINE 100MCG TABLET (0.1MG) PO SCH (06:21)
[2023-11-09 07:14] LABS: BASO # 0.1 10^3/uL (0.0-0.2); BASO % 0.9 % (0.0-1.0); EOS # 0.6 10^3/uL (0.0-0.5); HEMATOCRIT 25.9 % (36.0-47.0); HEMOGLOBIN 8.4 g/dl (12.0-15.5); LYMPH # 0.8 10^3/uL (1.5-5.0); LYMPH % 6.2 % (24.0-44.0); MEAN CORPUSCULAR HEMOGLOBIN 29.2 pg (27.0-33.0); MEAN CORPUSCULAR HGB CONC 32.4 g/dl (32.0-36.5); MEAN CORPUSCULAR VOLUME 89.9 fl (80.0-96.0); MONO # 1.2 10^3/uL (0.0-0.8); MONO % 9.5 % (2.0-8.0); NEUTROPHILS % 74.7 % (36.0-66.0); PLATELET COUNT, AUTOMATED 372 10^3/uL (150-450); RED BLOOD COUNT 2.88 10^6/uL (4.00-5.40); WHITE BLOOD COUNT 12.1 10^3/uL (4.0-10.0)
[2023-11-09 07:23] LABS: INR 1.42; PROTHROMBIN TIME 16.9 SECONDS (12.5-14.5)
[2023-11-09 07:24] LABS: PARTIAL THROMBOPLASTIN TIME 65.2 SECONDS (24.8-34.2)
[2023-11-09 07:40] LABS: CALCIUM LEVEL 8.4 MG/DL (8.3-10.6); CREATININE FOR GFR 2.71 MG/DL (0.55-1.30); GLOMERULAR FILTRATION RATE 18.2 (>39); POTASSIUM SERUM 4.3 MMOL/L (3.5-5.1)
[2023-11-09] MEDS: CitaloPRAM (CeleXA) 20 MG TAB PO SCH (09:43)
[2023-11-09] MEDS: FUROSEMIDE 100MG/10ML VIAL IV ONE (12:37)
[2023-11-09 14:33] VITALS: BP 141/60; TEMP 98.4; O2SAT 94
[2023-11-09] MEDS: AMINO AC/ELECTROLYTE/DEX/CALC 1,000 ML IV SCH (16:56)
[2023-11-09] MEDS: FAT EMULSION IV 250 ML IV ONE (18:16)
[2023-11-09] MEDS: MULTIVITAMIN -ADULT INJECTION 10 ML, ZINC/COPPER/MANGANESE/SELENIUM 1 ML in AMINO AC/EL... IV SCH (18:16)
[2023-11-09 21:40] VITALS: BP 152/101; TEMP 97.3; O2SAT 95
[2023-11-09] MEDS: DONEPEZIL 5 MG TAB PO SCH (21:44)
[2023-11-10 05:55] VITALS: BP 157/65; TEMP 97.7; O2SAT 94
[2023-11-10 06:14] LABS: BASO # 0.1 10^3/uL (0.0-0.2); BASO % 0.7 % (0.0-1.0); EOS # 0.6 10^3/uL (0.0-0.5); EOS % 6.3 % (0.0-3.0); HEMATOCRIT 23.9 % (36.0-47.0); HEMOGLOBIN 7.8 g/dl (12.0-15.5); LYMPH # 0.8 10^3/uL (1.5-5.0); LYMPH % 7.5 % (24.0-44.0); MEAN CORPUSCULAR HEMOGLOBIN 29.7 pg (27.0-33.0); MEAN CORPUSCULAR HGB CONC 32.6 g/dl (32.0-36.5); MEAN CORPUSCULAR VOLUME 90.9 fl (80.0-96.0); MONO # 0.9 10^3/uL (0.0-0.8); MONO % 9.3 % (2.0-8.0); NEUTROPHILS # 7.4 10^3/uL (1.5-8.5); NEUTROPHILS % 73.1 % (36.0-66.0); PLATELET COUNT, AUTOMATED 356 10^3/uL (150-450); RED BLOOD COUNT 2.63 10^6/uL (4.00-5.40); WHITE BLOOD COUNT 10.1 10^3/uL (4.0-10.0)
[2023-11-10 06:34] LABS: CALCIUM LEVEL 8.2 MG/DL (8.3-10.6); CREATININE FOR GFR 2.59 MG/DL (0.55-1.30); GLOMERULAR FILTRATION RATE 19.1 (>39); POTASSIUM SERUM 4.1 MMOL/L (3.5-5.1)
[2023-11-10] MEDS: LEVEMIR (INSULIN DETEMIR) 1 UNITS/0.01ML SC SCH ×2 (09:11→21:48)
[2023-11-10] MEDS: FUROSEMIDE 100MG/10ML VIAL IV ONE (11:14)
[2023-11-10 14:00] VITALS: BP 158/63; TEMP 97.5; O2SAT 93
[2023-11-10] MEDS: INSULIN LISPRO (NovoLOG) PER UNIT SC SCH (18:00)
[2023-11-10] MEDS: FAT EMULSION IV 250 ML IV ONE (18:44)
[2023-11-10] MEDS: AMINO AC/ELECTROLYTE/DEX/CALC 1,000 ML IV ONE (18:46)
[2023-11-10 21:46] VITALS: BP 120/64; TEMP 97.7; O2SAT 94
[2023-11-11 06:20] VITALS: BP 133/67; TEMP 97.8; O2SAT 94
[2023-11-11] MEDS: AMINO AC/ELECTROLYTE/DEX/CALC 2,000 ML IV SCH (07:39)
[2023-11-11 08:00] VITALS: BP 140/61; TEMP 97.9; O2SAT 94
[2023-11-11 08:26] LABS: BASO # 0.1 10^3/uL (0.0-0.2); BASO % 1.2 % (0.0-1.0); EOS # 0.7 10^3/uL (0.0-0.5); EOS % 6.8 % (0.0-3.0); HEMATOCRIT 23.1 % (36.0-47.0); HEMOGLOBIN 7.5 g/dl (12.0-15.5); LYMPH # 0.7 10^3/uL (1.5-5.0); LYMPH % 7.2 % (24.0-44.0); MEAN CORPUSCULAR HEMOGLOBIN 29.2 pg (27.0-33.0); MEAN CORPUSCULAR HGB CONC 32.5 g/dl (32.0-36.5); MEAN CORPUSCULAR VOLUME 89.9 fl (80.0-96.0); MONO # 1.1 10^3/uL (0.0-0.8); MONO % 10.6 % (2.0-8.0); NEUTROPHILS # 7.2 10^3/uL (1.5-8.5); NEUTROPHILS % 71.4 % (36.0-66.0); PLATELET COUNT, AUTOMATED 330 10^3/uL (150-450); RED BLOOD COUNT 2.57 10^6/uL (4.00-5.40); WHITE BLOOD COUNT 10.1 10^3/uL (4.0-10.0)
[2023-11-11] MEDS: LEVEMIR (INSULIN DETEMIR) 1 UNITS/0.01ML SC SCH (09:00)
[2023-11-11 09:01] LABS: CALCIUM LEVEL 8.5 MG/DL (8.3-10.6); CREATININE FOR GFR 2.51 MG/DL (0.55-1.30); GLOMERULAR FILTRATION RATE 19.8 (>39); POTASSIUM SERUM 3.8 MMOL/L (3.5-5.1)
[2023-11-11 14:19] VITALS: BP 151/48; TEMP 97.5; O2SAT 92
[2023-11-11] MEDS: FAT EMULSION IV 250 ML IV ONE (18:05)
[2023-11-11] MEDS: MULTIVITAMIN -ADULT INJECTION 10 ML, ZINC/COPPER/MANGANESE/SELENIUM 1 ML in AMINO AC/EL... IV SCH (18:05)
[2023-11-11 21:22] VITALS: BP 160/62; TEMP 97.4; O2SAT 90
[2023-11-12 06:00] VITALS: BP 151/61; TEMP 97.4; O2SAT 92
[2023-11-12 07:33] LABS: BASO # 0.1 10^3/uL (0.0-0.2); BASO % 1.2 % (0.0-1.0); EOS # 0.6 10^3/uL (0.0-0.5); EOS % 5.8 % (0.0-3.0); HEMATOCRIT 24.7 % (36.0-47.0); LYMPH # 0.7 10^3/uL (1.5-5.0); LYMPH % 6.3 % (24.0-44.0); MEAN CORPUSCULAR HEMOGLOBIN 29.1 pg (27.0-33.0); MEAN CORPUSCULAR HGB CONC 32.4 g/dl (32.0-36.5); MEAN CORPUSCULAR VOLUME 89.8 fl (80.0-96.0); MONO # 0.8 10^3/uL (0.0-0.8); MONO % 7.8 % (2.0-8.0); NEUTROPHILS # 7.8 10^3/uL (1.5-8.5); NEUTROPHILS % 74.9 % (36.0-66.0); PLATELET COUNT, AUTOMATED 346 10^3/uL (150-450); RED BLOOD COUNT 2.75 10^6/uL (4.00-5.40); WHITE BLOOD COUNT 10.4 10^3/uL (4.0-10.0)
[2023-11-12 07:54] VITALS: BP 134/51; TEMP 97.5; O2SAT 93
[2023-11-12 07:55] LABS: CALCIUM LEVEL 8.3 MG/DL (8.3-10.6); CREATININE FOR GFR 2.32 MG/DL (0.55-1.30); GLOMERULAR FILTRATION RATE 21.7 (>39); POTASSIUM SERUM 3.6 MMOL/L (3.5-5.1)
[2023-11-12] MEDS: ACETAMINOPHEN TAB 650MG DOSE (2X325MG) PO PRN (09:12)
[2023-11-12 14:04] VITALS: BP 140/59; TEMP 97.5; O2SAT 93
[2023-11-12] MEDS: AMINO AC/ELECTROLYTE/DEX/CALC 2,000 ML IV SCH (18:32)
[2023-11-12] MEDS: FAT EMULSION IV 250 ML IV ONE (18:32)
[2023-11-12 22:00] VITALS: BP 136/56; TEMP 97; O2SAT 92
[2023-11-13 05:32] VITALS: BP 116/48; TEMP 97.3; O2SAT 91
[2023-11-13 07:50] LABS: BASO # 0.1 10^3/uL (0.0-0.2); BASO % 1.1 % (0.0-1.0); EOS # 0.7 10^3/uL (0.0-0.5); EOS % 6.1 % (0.0-3.0); HEMATOCRIT 23.8 % (36.0-47.0); HEMOGLOBIN 7.6 g/dl (12.0-15.5); LYMPH # 0.7 10^3/uL (1.5-5.0); LYMPH % 6.1 % (24.0-44.0); MEAN CORPUSCULAR HEMOGLOBIN 28.9 pg (27.0-33.0); MEAN CORPUSCULAR HGB CONC 31.9 g/dl (32.0-36.5); MEAN CORPUSCULAR VOLUME 90.5 fl (80.0-96.0); MONO # 0.9 10^3/uL (0.0-0.8); MONO % 7.9 % (2.0-8.0); NEUTROPHILS # 8.4 10^3/uL (1.5-8.5); NEUTROPHILS % 73.9 % (36.0-66.0); PLATELET COUNT, AUTOMATED 316 10^3/uL (150-450); RED BLOOD COUNT 2.63 10^6/uL (4.00-5.40); WHITE BLOOD COUNT 11.4 10^3/uL (4.0-10.0)
[2023-11-13 08:15] LABS: CALCIUM LEVEL 8.3 MG/DL (8.3-10.6); CREATININE FOR GFR 2.22 MG/DL (0.55-1.30); GLOMERULAR FILTRATION RATE 22.9 (>39); POTASSIUM SERUM 3.7 MMOL/L (3.5-5.1)
[2023-11-13] MEDS: LEVEMIR (INSULIN DETEMIR) 1 UNITS/0.01ML SC SCH (09:51)
[2023-11-13 12:25] VITALS: BP 137/61
[2023-11-13] MEDS: FUROSEMIDE 40MG/4ML VIAL IV SCH (12:33)
[2023-11-13 14:09] VITALS: BP 148/75; TEMP 97.7; O2SAT 92
[2023-11-13] MEDS: AMINO AC/ELECTROLYTE/DEX/CALC 2,000 ML IV SCH (17:03)
[2023-11-13] MEDS: FAT EMULSION IV 250 ML IV SCH (17:04)
[2023-11-13 20:09] VITALS: BP 170/64; TEMP 97.5; O2SAT 93
[2023-11-13] MEDS: traZODone 25MG PER 1/2 TABLET PO SCH (21:19)
[2023-11-13] MEDS: RAMELTEON 8 MG TAB (ROZEREM) PO SCH (21:19)
[2023-11-14] VITALS (7 sets, daily range): BP systolic 135–163; BP diastolic 47–69; TEMP 97.3–97.7; O2SAT 93–97
[2023-11-14 06:27] LABS: HEMATOCRIT 23.6 % (36.0-47.0); HEMOGLOBIN 7.5 g/dl (12.0-15.5); MEAN CORPUSCULAR HEMOGLOBIN 28.8 pg (27.0-33.0); MEAN CORPUSCULAR HGB CONC 31.8 g/dl (32.0-36.5); MEAN CORPUSCULAR VOLUME 90.8 fl (80.0-96.0); PLATELET COUNT, AUTOMATED 320 10^3/uL (150-450); WHITE BLOOD COUNT 10.6 10^3/uL (4.0-10.0)
[2023-11-14 06:42] LABS: CALCIUM LEVEL 8.5 MG/DL (8.3-10.6); CREATININE FOR GFR 2.14 MG/DL (0.55-1.30); GLOMERULAR FILTRATION RATE 23.9 (>39); POTASSIUM SERUM 3.4 MMOL/L (3.5-5.1)
[2023-11-14 07:06] LABS: BASOPHILS 2 % (0-1); EOSINOPHILS 6 % (0-3); LYMPHOCYTES 7 % (16-44); METAMYELOCYTES 1 % (0-0); MONOCYTES 1 % (0-5); MYELOCYTES 2 % (0-0); NEUTROPHILS 80 % (28-66); PLATELET ESTIMATE NORMAL (NORMAL)
[2023-11-14] MEDS: POTASSIUM CHLORIDE 10MEQ SR TABLET PO ONE ×2 (09:24→17:22)
[2023-11-14] MEDS: AMINO AC/ELECTROLYTE/DEX/CALC 1,000 ML IV SCH (14:25)
[2023-11-14] MEDS: MULTIVITAMIN -ADULT INJECTION 10 ML, ZINC/COPPER/MANGANESE/SELENIUM 1 ML in AMINO AC/EL... IV SCH (18:00)
[2023-11-14] MEDS: FAT EMULSION IV 250 ML IV ONE (18:00)
[2023-11-15 06:20] VITALS: BP 141/52; TEMP 97.2; O2SAT 96
[2023-11-15 06:35] LABS: BASO # 0.2 10^3/uL (0.0-0.2); BASO % 1.6 % (0.0-1.0); EOS # 0.9 10^3/uL (0.0-0.5); EOS % 8.6 % (0.0-3.0); HEMATOCRIT 28.2 % (36.0-47.0); HEMOGLOBIN 9.1 g/dl (12.0-15.5); LYMPH % 9.6 % (24.0-44.0); MEAN CORPUSCULAR HEMOGLOBIN 29.1 pg (27.0-33.0); MEAN CORPUSCULAR HGB CONC 32.3 g/dl (32.0-36.5); MEAN CORPUSCULAR VOLUME 90.1 fl (80.0-96.0); MONO % 9.7 % (2.0-8.0); NEUTROPHILS # 6.4 10^3/uL (1.5-8.5); NEUTROPHILS % 63.6 % (36.0-66.0); PLATELET COUNT, AUTOMATED 334 10^3/uL (150-450); RED BLOOD COUNT 3.13 10^6/uL (4.00-5.40); WHITE BLOOD COUNT 10.1 10^3/uL (4.0-10.0)
[2023-11-15 07:00] LABS: CALCIUM LEVEL 8.7 MG/DL (8.3-10.6); CREATININE FOR GFR 2.08 MG/DL (0.55-1.30); GLOMERULAR FILTRATION RATE 24.6 (>39); MAGNESIUM LEVEL 1.5 MG/DL (1.8-2.4); PHOSPHORUS LEVEL 5.4 MG/DL (2.4-5.1); POTASSIUM SERUM 3.7 MMOL/L (3.5-5.1)
[2023-11-15 09:00] VITALS: BP 160/50; TEMP 97.4; O2SAT 96
[2023-11-15] MEDS: MAG SULF 1GM/100ML (MAG RUN) 1 GM in IV 1 EA IV SCH (10:37)
[2023-11-15] MEDS: POTASSIUM CHLORIDE 10MEQ SR TABLET PO ONE (14:19)
[2023-11-15 14:29] VITALS: BP 138/50; TEMP 97.3; O2SAT 93
[2023-11-15] MEDS: MAG SULF 1GM/100ML (MAG RUN) 1 GM in IV 1 EA IV ONE (15:34)
[2023-11-15] MEDS ORDERED: INSULIN LISPRO (NovoLOG) PER UNIT SC SCH (18:00)
[2023-11-15] MEDS: AMINO AC/ELECTROLYTE/DEX/CALC 2,000 ML IV SCH (18:50)
[2023-11-15] MEDS: FAT EMULSION IV 250 ML IV ONE (18:50)
[2023-11-15 22:00] VITALS: BP 152/57; TEMP 97.2; O2SAT 93
[2023-11-16 05:19] VITALS: BP 153/60; TEMP 97.3; O2SAT 95
[2023-11-16 06:18] LABS: BASO # 0.1 10^3/uL (0.0-0.2); EOS # 0.9 10^3/uL (0.0-0.5); EOS % 7.8 % (0.0-3.0); HEMATOCRIT 27.2 % (36.0-47.0); HEMOGLOBIN 8.8 g/dl (12.0-15.5); LYMPH % 9.2 % (24.0-44.0); MEAN CORPUSCULAR HEMOGLOBIN 28.9 pg (27.0-33.0); MEAN CORPUSCULAR HGB CONC 32.4 g/dl (32.0-36.5); MEAN CORPUSCULAR VOLUME 89.5 fl (80.0-96.0); MONO # 1.1 10^3/uL (0.0-0.8); MONO % 9.8 % (2.0-8.0); NEUTROPHILS # 7.6 10^3/uL (1.5-8.5); NEUTROPHILS % 67.4 % (36.0-66.0); PLATELET COUNT, AUTOMATED 322 10^3/uL (150-450); RED BLOOD COUNT 3.04 10^6/uL (4.00-5.40); WHITE BLOOD COUNT 11.3 10^3/uL (4.0-10.0)
[2023-11-16 06:34] LABS: CALCIUM LEVEL 8.3 MG/DL (8.3-10.6); GLOMERULAR FILTRATION RATE 25.8 (>39); POTASSIUM SERUM 4.3 MMOL/L (3.5-5.1)
[2023-11-16 07:24] VITALS: O2SAT 96
[2023-11-16 10:12] LABS: CLOSTRIDIUM DIFFICILE PCR NEGATIVE (NEGATIVE)
[2023-11-16] MEDS ORDERED: PROHANCE 279.3MG/ML 15ML VIAL As Ordered ONE (10:13)
[2023-11-16] MEDS ORDERED: GASTROGRAFIN SOLUTION 30ML As Ordered ONE (10:15)
[2023-11-16 14:00] VITALS: BP 169/67; TEMP 97.3; O2SAT 94
[2023-11-16] MEDS: AMINO AC/ELECTROLYTE/DEX/CALC 1,000 ML IV SCH (16:17)
[2023-11-16] MEDS: MULTIVITAMIN -ADULT INJECTION 10 ML, ZINC/COPPER/MANGANESE/SELENIUM 1 ML in AMINO AC/EL... IV SCH (18:36)
[2023-11-16] MEDS: FAT EMULSION IV 250 ML IV ONE (18:36)
[2023-11-16 21:54] VITALS: BP 156/59; TEMP 97.5; O2SAT 92
[2023-11-17 05:59] VITALS: BP 147/46; TEMP 97.6; O2SAT 92
[2023-11-17 06:38] LABS: BASO # 0.1 10^3/uL (0.0-0.2); BASO % 1.4 % (0.0-1.0); EOS # 0.7 10^3/uL (0.0-0.5); EOS % 8.3 % (0.0-3.0); HEMOGLOBIN 8.8 g/dl (12.0-15.5); LYMPH # 0.8 10^3/uL (1.5-5.0); LYMPH % 9.9 % (24.0-44.0); MEAN CORPUSCULAR HEMOGLOBIN 28.9 pg (27.0-33.0); MEAN CORPUSCULAR HGB CONC 32.6 g/dl (32.0-36.5); MEAN CORPUSCULAR VOLUME 88.8 fl (80.0-96.0); MONO % 11.3 % (2.0-8.0); NEUTROPHILS # 5.5 10^3/uL (1.5-8.5); NEUTROPHILS % 64.6 % (36.0-66.0); PLATELET COUNT, AUTOMATED 306 10^3/uL (150-450); RED BLOOD COUNT 3.04 10^6/uL (4.00-5.40); WHITE BLOOD COUNT 8.5 10^3/uL (4.0-10.0)
[2023-11-17 06:59] LABS: CALCIUM LEVEL 8.7 MG/DL (8.3-10.6); CREATININE FOR GFR 1.95 MG/DL (0.55-1.30); GLOMERULAR FILTRATION RATE 26.6 (>39); POTASSIUM SERUM 3.5 MMOL/L (3.5-5.1)
[2023-11-17] MEDS: LOMOTIL 2.5MG/0.025MG TABLET PO SCH (08:10)
[2023-11-17] MEDS: LACTOBACILLUS ACIDOPHILUS CAP (BACID) PO SCH (13:38)
[2023-11-17 14:46] VITALS: BP 105/52; TEMP 97.7; O2SAT 92
[2023-11-17 17:56] VITALS: BP 164/64
[2023-11-17 20:44] VITALS: BP 146/52; TEMP 97.9; O2SAT 91
[2023-11-17] MEDS: FAT EMULSION IV 250 ML IV ONE (21:27)
[2023-11-17] MEDS: AMINO AC/ELECTROLYTE/DEX/CALC 2,000 ML, AMINO AC/ELECTROLYTE/DEX/CALC 1,000 ML IV SCH (21:27)
[2023-11-18 06:07] LABS: BASO # 0.1 10^3/uL (0.0-0.2); BASO % 0.9 % (0.0-1.0); EOS # 0.5 10^3/uL (0.0-0.5); EOS % 3.8 % (0.0-3.0); HEMATOCRIT 26.3 % (36.0-47.0); HEMOGLOBIN 8.4 g/dl (12.0-15.5); LYMPH # 0.7 10^3/uL (1.5-5.0); LYMPH % 5.8 % (24.0-44.0); MEAN CORPUSCULAR HEMOGLOBIN 28.9 pg (27.0-33.0); MEAN CORPUSCULAR HGB CONC 31.9 g/dl (32.0-36.5); MEAN CORPUSCULAR VOLUME 90.4 fl (80.0-96.0); NEUTROPHILS # 10.2 10^3/uL (1.5-8.5); NEUTROPHILS % 79.3 % (36.0-66.0); PLATELET COUNT, AUTOMATED 331 10^3/uL (150-450); RED BLOOD COUNT 2.91 10^6/uL (4.00-5.40); WHITE BLOOD COUNT 12.8 10^3/uL (4.0-10.0)
[2023-11-18 06:38] LABS: CALCIUM LEVEL 8.7 MG/DL (8.3-10.6); CREATININE FOR GFR 1.83 MG/DL (0.55-1.30); GLOMERULAR FILTRATION RATE 28.6 (>39); POTASSIUM SERUM 3.7 MMOL/L (3.5-5.1)
[2023-11-18 08:05] VITALS: BP 159/72; TEMP 97.7; O2SAT 90
[2023-11-18] MEDS: LIDOCAINE 5% (LIDODERM) PATCH TD SCH (12:31)
[2023-11-18 14:28] VITALS: BP 164/64; TEMP 97.3; O2SAT 94
[2023-11-18] MEDS: FAT EMULSION IV 250 ML IV ONE (18:45)
[2023-11-18] MEDS: MULTIVITAMIN -ADULT INJECTION 10 ML, ZINC/COPPER/MANGANESE/SELENIUM 1 ML in AMINO AC/EL... IV SCH (18:46)
[2023-11-18 20:54] VITALS: BP 177/68; TEMP 97.5; O2SAT 94
[2023-11-18 21:15] VITALS: BP 156/52
[2023-11-19 05:58] VITALS: BP 158/50; TEMP 97.9; O2SAT 93
[2023-11-19 07:43] LABS: BASO # 0.1 10^3/uL (0.0-0.2); BASO % 0.6 % (0.0-1.0); EOS # 0.5 10^3/uL (0.0-0.5); EOS % 5.6 % (0.0-3.0); HEMATOCRIT 23.9 % (36.0-47.0); HEMOGLOBIN 7.8 g/dl (12.0-15.5); LYMPH # 0.8 10^3/uL (1.5-5.0); LYMPH % 8.1 % (24.0-44.0); MEAN CORPUSCULAR HGB CONC 32.6 g/dl (32.0-36.5); MEAN CORPUSCULAR VOLUME 88.8 fl (80.0-96.0); MONO % 10.5 % (2.0-8.0); NEUTROPHILS # 6.8 10^3/uL (1.5-8.5); NEUTROPHILS % 73.1 % (36.0-66.0); PLATELET COUNT, AUTOMATED 268 10^3/uL (150-450); RED BLOOD COUNT 2.69 10^6/uL (4.00-5.40); WHITE BLOOD COUNT 9.3 10^3/uL (4.0-10.0)
[2023-11-19 08:03] LABS: ALBUMIN 1.2 G/DL (3.2-5.2); ALKALINE PHOSPHATASE 275 U/L (46-116); ALT/SGPT 14 U/L (7.0-40); AST/SGOT 18 U/L (<34); BILIRUBIN,DIRECT < 0.1 MG/DL (<0.4); BILIRUBIN,TOTAL < 0.2 MG/DL (0.3-1.2); BLOOD UREA NITROGEN 86 MG/DL (9-23); CALCIUM LEVEL 8.3 MG/DL (8.3-10.6); CARBON DIOXIDE LEVEL 27 MMOL/L (20-31); CHLORIDE LEVEL 107 MMOL/L (98-107); CREATININE FOR GFR 1.75 MG/DL (0.55-1.30); GLOMERULAR FILTRATION RATE 30.1 (>39); GLUCOSE, FASTING 193 MG/DL (74-106); POTASSIUM SERUM 2.9 MMOL/L (3.5-5.1); SODIUM LEVEL 141 MMOL/L (136-145)
[2023-11-19 11:45] LABS: MAGNESIUM LEVEL 1.6 MG/DL (1.8-2.4)
[2023-11-19] MEDS: POTASSIUM CHLORIDE 10MEQ SR TABLET PO SCH (12:27)
[2023-11-19 15:00] VITALS: BP 144/63; TEMP 98.1; O2SAT 92
[2023-11-19] MEDS: INSULIN LISPRO (NovoLOG) PER UNIT SC SCH (18:00)
[2023-11-19] MEDS: FAT EMULSION IV 250 ML IV ONE (18:05)
[2023-11-19] MEDS: AMINO AC/ELECTROLYTE/DEX/CALC 1,000 ML IV ONE (18:05)
[2023-11-19 20:35] VITALS: BP 150/55; TEMP 97.7; O2SAT 95
[2023-11-20] MEDS: AMINO AC/ELECTROLYTE/DEX/CALC 2,000 ML IV SCH (05:32)
[2023-11-20 06:00] VITALS: BP 148/55; TEMP 97.7; O2SAT 93
[2023-11-20 06:39] LABS: BASO # 0.1 10^3/uL (0.0-0.2); BASO % 0.7 % (0.0-1.0); EOS % 9.6 % (0.0-3.0); HEMATOCRIT 25.2 % (36.0-47.0); LYMPH # 1.1 10^3/uL (1.5-5.0); LYMPH % 10.9 % (24.0-44.0); MEAN CORPUSCULAR HEMOGLOBIN 28.9 pg (27.0-33.0); MEAN CORPUSCULAR HGB CONC 31.7 g/dl (32.0-36.5); MONO # 1.2 10^3/uL (0.0-0.8); MONO % 11.8 % (2.0-8.0); NEUTROPHILS # 6.6 10^3/uL (1.5-8.5); NEUTROPHILS % 63.5 % (36.0-66.0); PLATELET COUNT, AUTOMATED 283 10^3/uL (150-450); RED BLOOD COUNT 2.77 10^6/uL (4.00-5.40); WHITE BLOOD COUNT 10.3 10^3/uL (4.0-10.0)
[2023-11-20 07:04] LABS: ALBUMIN 1.3 G/DL (3.2-5.2); ALKALINE PHOSPHATASE 291 U/L (46-116); ALT/SGPT 14 U/L (7.0-40); AST/SGOT 17 U/L (<34); BILIRUBIN,DIRECT < 0.1 MG/DL (<0.4); BILIRUBIN,TOTAL < 0.2 MG/DL (0.3-1.2); BLOOD UREA NITROGEN 84 MG/DL (9-23); CALCIUM LEVEL 8.9 MG/DL (8.3-10.6); CARBON DIOXIDE LEVEL 28 MMOL/L (20-31); CHLORIDE LEVEL 106 MMOL/L (98-107); CREATININE FOR GFR 1.74 MG/DL (0.55-1.30); GLOMERULAR FILTRATION RATE 30.3 (>39); GLUCOSE, FASTING 146 MG/DL (74-106); POTASSIUM SERUM 3.6 MMOL/L (3.5-5.1); SODIUM LEVEL 141 MMOL/L (136-145); TOTAL PROTEIN 5.4 G/DL (5.7-8.2)
[2023-11-20 13:45] VITALS: O2SAT 96
[2023-11-20 15:25] VITALS: BP 146/57; TEMP 97.5; O2SAT 96
[2023-11-20] MEDS ORDERED: INSULIN LISPRO (NovoLOG) PER UNIT SC SCH (18:00)
[2023-11-20] MEDS: AMINO AC IV SCH (18:58)
[2023-11-20] MEDS: ELECTROLYTE IV SCH (18:58)
[2023-11-20] MEDS: CALC IV SCH (18:58)
[2023-11-20] MEDS: MAGNESIUM SULFATE IV SCH (18:58)
[2023-11-20] MEDS: [UNRECOGNIZED DRUG - OTHER] IV SCH (18:58)
[2023-11-20] MEDS: DEX IV SCH (18:58)
[2023-11-20] MEDS: FAT EMULSION IV 250 ML IV ONE (18:58)
[2023-11-20 20:57] VITALS: BP_SYST 109; BP_SYST 143; BP_DIAS 57; BP_DIAS 74; TEMP 97.5; O2SAT 94; O2SAT 97
[2023-11-20] MEDS: RAMELTEON 8 MG TAB (ROZEREM) PO PRN (21:28)
[2023-11-21 05:47] LABS: BASO # 0.1 10^3/uL (0.0-0.2); BASO % 0.9 % (0.0-1.0); EOS % 10.9 % (0.0-3.0); HEMATOCRIT 25.2 % (36.0-47.0); HEMOGLOBIN 8.2 g/dl (12.0-15.5); LYMPH # 1.1 10^3/uL (1.5-5.0); LYMPH % 12.7 % (24.0-44.0); MEAN CORPUSCULAR HEMOGLOBIN 29.5 pg (27.0-33.0); MEAN CORPUSCULAR HGB CONC 32.5 g/dl (32.0-36.5); MEAN CORPUSCULAR VOLUME 90.6 fl (80.0-96.0); MONO % 10.8 % (2.0-8.0); NEUTROPHILS # 5.4 10^3/uL (1.5-8.5); NEUTROPHILS % 61.9 % (36.0-66.0); PLATELET COUNT, AUTOMATED 298 10^3/uL (150-450); RED BLOOD COUNT 2.78 10^6/uL (4.00-5.40); WHITE BLOOD COUNT 8.8 10^3/uL (4.0-10.0)
[2023-11-21 06:00] VITALS: BP 148/57; TEMP 97.5; O2SAT 96
[2023-11-21 06:10] LABS: ALBUMIN 1.3 G/DL (3.2-5.2); ALKALINE PHOSPHATASE 281 U/L (46-116); ALT/SGPT 14 U/L (7.0-40); AST/SGOT 16 U/L (<34); BILIRUBIN,DIRECT < 0.1 MG/DL (<0.4); BILIRUBIN,TOTAL < 0.2 MG/DL (0.3-1.2); BLOOD UREA NITROGEN 81 MG/DL (9-23); CALCIUM LEVEL 8.5 MG/DL (8.3-10.6); CARBON DIOXIDE LEVEL 28 MMOL/L (20-31); CHLORIDE LEVEL 104 MMOL/L (98-107); CREATININE FOR GFR 1.66 MG/DL (0.55-1.30); GLUCOSE, FASTING 197 MG/DL (74-106); POTASSIUM SERUM 3.3 MMOL/L (3.5-5.1); SODIUM LEVEL 139 MMOL/L (136-145); TOTAL PROTEIN 5.5 G/DL (5.7-8.2)
[2023-11-21] MEDS: POTASSIUM CHLORIDE 10MEQ SR TABLET PO ONE (08:38)
[2023-11-21] MEDS: MULTIVITAMIN -ADULT INJECTION 10 ML, ZINC/COPPER/MANGANESE/SELENIUM 1 ML in AMINO AC/EL... IV SCH (17:59)
[2023-11-21] MEDS ORDERED: INSULIN LISPRO (NovoLOG) PER UNIT SC SCH (18:00)
[2023-11-21] MEDS: FAT EMULSION IV 250 ML IV ONE (18:00)
[2023-11-21 19:49] VITALS: BP 115/61; TEMP 97; O2SAT 96
[2023-11-22 05:08] VITALS: BP 128/59; TEMP 97.7; O2SAT 94
[2023-11-22 06:04] LABS: BASO # 0.1 10^3/uL (0.0-0.2); BASO % 0.9 % (0.0-1.0); EOS # 0.9 10^3/uL (0.0-0.5); EOS % 9.5 % (0.0-3.0); HEMATOCRIT 25.2 % (36.0-47.0); HEMOGLOBIN 7.7 g/dl (12.0-15.5); LYMPH # 0.9 10^3/uL (1.5-5.0); LYMPH % 10.2 % (24.0-44.0); MEAN CORPUSCULAR HEMOGLOBIN 28.6 pg (27.0-33.0); MEAN CORPUSCULAR HGB CONC 30.6 g/dl (32.0-36.5); MEAN CORPUSCULAR VOLUME 93.7 fl (80.0-96.0); MONO % 11.4 % (2.0-8.0); NEUTROPHILS # 5.9 10^3/uL (1.5-8.5); PLATELET COUNT, AUTOMATED 259 10^3/uL (150-450); RED BLOOD COUNT 2.69 10^6/uL (4.00-5.40); WHITE BLOOD COUNT 9.1 10^3/uL (4.0-10.0)
[2023-11-22 06:28] LABS: ALBUMIN 1.3 G/DL (3.2-5.2); ALKALINE PHOSPHATASE 288 U/L (46-116); ALT/SGPT 17 U/L (7.0-40); AST/SGOT 16 U/L (<34); BILIRUBIN,DIRECT < 0.1 MG/DL (<0.4); BILIRUBIN,TOTAL < 0.2 MG/DL (0.3-1.2); BLOOD UREA NITROGEN 77 MG/DL (9-23); CALCIUM LEVEL 8.5 MG/DL (8.3-10.6); CARBON DIOXIDE LEVEL 31 MMOL/L (20-31); CHLORIDE LEVEL 103 MMOL/L (98-107); GLOMERULAR FILTRATION RATE 33.4 (>39); GLUCOSE, FASTING 184 MG/DL (74-106); POTASSIUM SERUM 3.6 MMOL/L (3.5-5.1); SODIUM LEVEL 139 MMOL/L (136-145); TOTAL PROTEIN 5.4 G/DL (5.7-8.2)
[2023-11-22 08:00] VITALS: BP 128/57; TEMP 97.2; O2SAT 93
[2023-11-22 14:00] VITALS: BP 146/52; TEMP 97.5; O2SAT 94
[2023-11-22 15:48] LABS: HEMATOCRIT 25.5 % (36.0-47.0); HEMOGLOBIN 8.1 g/dl (12.0-15.5)
[2023-11-22] MEDS: FAT EMULSION IV 250 ML IV ONE (17:51)
[2023-11-22] MEDS ORDERED: INSULIN LISPRO (NovoLOG) PER UNIT SC SCH (18:00)
[2023-11-22] MEDS: AMINO AC/ELECTROLYTE/DEX/CALC 2,000 ML IV SCH (18:01)
[2023-11-22 21:28] VITALS: BP 138/51; TEMP 97.7; O2SAT 95
[2023-11-23] MEDS: AMINO AC/ELECTROLYTE/DEX/CALC 1,000 ML IV SCH (05:25)
[2023-11-23 06:00] VITALS: BP 137/52; TEMP 97.7; O2SAT 90
[2023-11-23 06:00] LABS: BASO # 0.1 10^3/uL (0.0-0.2); BASO % 0.7 % (0.0-1.0); EOS # 0.7 10^3/uL (0.0-0.5); EOS % 6.6 % (0.0-3.0); HEMATOCRIT 25.1 % (36.0-47.0); HEMOGLOBIN 8.1 g/dl (12.0-15.5); LYMPH # 0.9 10^3/uL (1.5-5.0); LYMPH % 8.7 % (24.0-44.0); MEAN CORPUSCULAR HEMOGLOBIN 29.6 pg (27.0-33.0); MEAN CORPUSCULAR HGB CONC 32.3 g/dl (32.0-36.5); MEAN CORPUSCULAR VOLUME 91.6 fl (80.0-96.0); MONO # 1.2 10^3/uL (0.0-0.8); MONO % 11.8 % (2.0-8.0); NEUTROPHILS # 7.3 10^3/uL (1.5-8.5); NEUTROPHILS % 70.3 % (36.0-66.0); PLATELET COUNT, AUTOMATED 252 10^3/uL (150-450); RED BLOOD COUNT 2.74 10^6/uL (4.00-5.40); WHITE BLOOD COUNT 10.4 10^3/uL (4.0-10.0)
[2023-11-23 06:28] LABS: ALBUMIN 1.4 G/DL (3.2-5.2); ALKALINE PHOSPHATASE 290 U/L (46-116); ALT/SGPT 14 U/L (7.0-40); AST/SGOT 15 U/L (<34); BILIRUBIN,DIRECT < 0.1 MG/DL (<0.4); BILIRUBIN,TOTAL < 0.2 MG/DL (0.3-1.2); BLOOD UREA NITROGEN 75 MG/DL (9-23); CALCIUM LEVEL 8.6 MG/DL (8.3-10.6); CARBON DIOXIDE LEVEL 32 MMOL/L (20-31); CHLORIDE LEVEL 102 MMOL/L (98-107); CREATININE FOR GFR 1.49 MG/DL (0.55-1.30); GLOMERULAR FILTRATION RATE 36.1 (>39); GLUCOSE, FASTING 182 MG/DL (74-106); MAGNESIUM LEVEL 1.6 MG/DL (1.8-2.4); POTASSIUM SERUM 3.4 MMOL/L (3.5-5.1); SODIUM LEVEL 139 MMOL/L (136-145); TOTAL PROTEIN 5.5 G/DL (5.7-8.2)
[2023-11-23] MEDS: MAG SULF 1GM/100ML (MAG RUN) 1 GM in IV 1 EA IV SCH ×2 (08:40→12:39)
[2023-11-23] MEDS: KCL 10MEQ/100ML SWI (KRUN) 10 MEQ in IV 1 EA IV SCH (11:11)
[2023-11-23 14:47] VITALS: BP 150/52; TEMP 97.7; O2SAT 94
[2023-11-23] MEDS ORDERED: INSULIN LISPRO (NovoLOG) PER UNIT SC SCH (18:00)
[2023-11-23] MEDS ORDERED: MULTIVITAMIN -ADULT INJECTION 10 ML, ZINC/COPPER/MANGANESE/SELENIUM 1 ML in AMINO AC/EL... IV SCH (18:00)
[2023-11-23] MEDS: PIPERACILLIN/TAZOBACTAM SOD 4.5 GM in D5W MINI-BAG PLUS 50 ML IV SCH (18:13)
[2023-11-23] MEDS: MULTIVITAMIN -ADULT INJECTION 10 ML, ZINC/COPPER/MANGANESE/SELENIUM 1 ML in AMINO AC/EL... IV SCH (18:39)
[2023-11-23] MEDS: FAT EMULSION IV 250 ML IV ONE (18:40)
[2023-11-23 20:00] VITALS: BP 132/59; TEMP 98.1; O2SAT 94
[2023-11-23] MEDS: traZODone 50 MG TAB PO SCH (21:54)
[2023-11-24 05:30] VITALS: BP 156/51; TEMP 97.7; O2SAT 95
[2023-11-24 06:37] LABS: BASO # 0.1 10^3/uL (0.0-0.2); BASO % 0.7 % (0.0-1.0); EOS # 0.5 10^3/uL (0.0-0.5); EOS % 5.3 % (0.0-3.0); HEMATOCRIT 23.6 % (36.0-47.0); HEMOGLOBIN 7.7 g/dl (12.0-15.5); LYMPH # 0.8 10^3/uL (1.5-5.0); LYMPH % 7.8 % (24.0-44.0); MEAN CORPUSCULAR HEMOGLOBIN 29.5 pg (27.0-33.0); MEAN CORPUSCULAR HGB CONC 32.6 g/dl (32.0-36.5); MEAN CORPUSCULAR VOLUME 90.4 fl (80.0-96.0); MONO # 1.2 10^3/uL (0.0-0.8); MONO % 12.4 % (2.0-8.0); NEUTROPHILS # 7.1 10^3/uL (1.5-8.5); NEUTROPHILS % 71.7 % (36.0-66.0); PLATELET COUNT, AUTOMATED 235 10^3/uL (150-450); RED BLOOD COUNT 2.61 10^6/uL (4.00-5.40); WHITE BLOOD COUNT 9.9 10^3/uL (4.0-10.0)
[2023-11-24 07:03] LABS: ALBUMIN 1.3 G/DL (3.2-5.2); ALKALINE PHOSPHATASE 279 U/L (46-116); ALT/SGPT 12 U/L (7.0-40); AST/SGOT 16 U/L (<34); BILIRUBIN,DIRECT < 0.1 MG/DL (<0.4); BILIRUBIN,TOTAL 0.2 MG/DL (0.3-1.2); BLOOD UREA NITROGEN 68 MG/DL (9-23); CALCIUM LEVEL 8.2 MG/DL (8.3-10.6); CARBON DIOXIDE LEVEL 34 MMOL/L (20-31); CHLORIDE LEVEL 101 MMOL/L (98-107); CREATININE FOR GFR 1.34 MG/DL (0.55-1.30); GLOMERULAR FILTRATION RATE 40.8 (>39); GLUCOSE, FASTING 129 MG/DL (74-106); MAGNESIUM LEVEL 1.6 MG/DL (1.8-2.4); POTASSIUM SERUM 3.1 MMOL/L (3.5-5.1); SODIUM LEVEL 139 MMOL/L (136-145); TOTAL PROTEIN 5.2 G/DL (5.7-8.2)
[2023-11-24] MEDS: MAG SULF 1GM/100ML (MAG RUN) 1 GM in IV 1 EA IV ONE (08:22)
[2023-11-24] MEDS: KCL 10MEQ/100ML SWI (KRUN) 10 MEQ in IV 1 EA IV SCH (11:28)
[2023-11-24 12:16] LABS: HEMATOCRIT 24.7 % (36.0-47.0)
[2023-11-24 14:00] VITALS: BP 111/61; TEMP 97.3; O2SAT 97
[2023-11-24] MEDS: AMINO AC/ELECTROLYTE/DEX/CALC 1,000 ML IV SCH (16:16)
[2023-11-24 16:57] LABS: CALCIUM LEVEL 8.4 MG/DL (8.3-10.6); CREATININE FOR GFR 1.27 MG/DL (0.55-1.30); GLOMERULAR FILTRATION RATE 43.4 (>39); POTASSIUM SERUM 3.3 MMOL/L (3.5-5.1)
[2023-11-24] MEDS: INSULIN LISPRO (NovoLOG) PER UNIT SC SCH (18:00)
[2023-11-24] MEDS: AMINO AC/ELECTROLYTE/DEX/CALC 2,000 ML IV SCH (18:30)
[2023-11-24] MEDS: FAT EMULSION IV 250 ML IV ONE (18:30)
[2023-11-24 19:46] VITALS: BP 163/55; TEMP 97.5; O2SAT 95
[2023-11-24 23:51] VITALS: BP 149/56
[2023-11-25 05:18] VITALS: BP 142/57; TEMP 97.5; O2SAT 94
[2023-11-25 07:14] LABS: BASO # 0.1 10^3/uL (0.0-0.2); BASO % 0.6 % (0.0-1.0); EOS # 0.6 10^3/uL (0.0-0.5); EOS % 6.6 % (0.0-3.0); HEMATOCRIT 24.5 % (36.0-47.0); LYMPH # 0.9 10^3/uL (1.5-5.0); MEAN CORPUSCULAR HEMOGLOBIN 29.2 pg (27.0-33.0); MEAN CORPUSCULAR HGB CONC 32.7 g/dl (32.0-36.5); MEAN CORPUSCULAR VOLUME 89.4 fl (80.0-96.0); MONO % 10.9 % (2.0-8.0); NEUTROPHILS # 6.1 10^3/uL (1.5-8.5); NEUTROPHILS % 70.1 % (36.0-66.0); PLATELET COUNT, AUTOMATED 248 10^3/uL (150-450); RED BLOOD COUNT 2.74 10^6/uL (4.00-5.40); WHITE BLOOD COUNT 8.8 10^3/uL (4.0-10.0)
[2023-11-25 07:35] VITALS: BP 147/57; TEMP 97.9; O2SAT 96
[2023-11-25 07:46] LABS: ALBUMIN 1.5 G/DL (3.2-5.2); ALKALINE PHOSPHATASE 303 U/L (46-116); ALT/SGPT 19 U/L (7.0-40); AST/SGOT 36 U/L (<34); BILIRUBIN,DIRECT < 0.1 MG/DL (<0.4); BILIRUBIN,TOTAL < 0.2 MG/DL (0.3-1.2); BLOOD UREA NITROGEN 58 MG/DL (9-23); CALCIUM LEVEL 8.4 MG/DL (8.3-10.6); CARBON DIOXIDE LEVEL 32 MMOL/L (20-31); CHLORIDE LEVEL 100 MMOL/L (98-107); CREATININE FOR GFR 1.14 MG/DL (0.55-1.30); GLOMERULAR FILTRATION RATE 49.2 (>39); GLUCOSE, FASTING 152 MG/DL (74-106); MAGNESIUM LEVEL 1.7 MG/DL (1.8-2.4); POTASSIUM SERUM 4.3 MMOL/L (3.5-5.1); SODIUM LEVEL 138 MMOL/L (136-145); TOTAL PROTEIN 5.7 G/DL (5.7-8.2)
[2023-11-25 11:28] VITALS: O2SAT 96
[2023-11-25] MEDS: NYSTATIN 100,000 UNITS/GM TOPICAL PWD 15GM TOP SCH (14:19)
[2023-11-25] MEDS: AMINO AC/ELECTROLYTE/DEX/CALC 1,000 ML IV SCH (15:59)
[2023-11-25] MEDS ORDERED: MULTIVITAMIN -ADULT INJECTION 10 ML, ZINC/COPPER/MANGANESE/SELENIUM 1 ML in AMINO AC/EL... IV SCH (18:00)
[2023-11-25] MEDS ORDERED: INSULIN LISPRO (NovoLOG) PER UNIT SC SCH (18:00)
[2023-11-25] MEDS: FAT EMULSION IV 250 ML IV ONE (18:08)
[2023-11-25] MEDS: MULTIVITAMIN -ADULT INJECTION 10 ML, ZINC/COPPER/MANGANESE/SELENIUM 1 ML in AMINO AC/EL... IV SCH (18:08)
[2023-11-25 21:25] VITALS: BP 154/56; TEMP 97.5; O2SAT 95
[2023-11-25] MEDS: RAMELTEON 8 MG TAB (ROZEREM) PO SCH (21:50)
[2023-11-26] MEDS: HALOPERIDOL LACTATE 5MG/ML VIAL IM PRN (04:25)
[2023-11-26 06:00] VITALS: BP 140/55; TEMP 97.5; O2SAT 95
[2023-11-26 07:11] LABS: MAGNESIUM LEVEL 1.6 MG/DL (1.8-2.4)
[2023-11-26 07:12] LABS: C REACTIVE PROTEIN QUANTITATIV 4.8 MG/DL (<1.0)
[2023-11-26 08:59] LABS: BASO # 0.1 10^3/uL (0.0-0.2); BASO % 0.6 % (0.0-1.0); EOS # 0.6 10^3/uL (0.0-0.5); EOS % 7.7 % (0.0-3.0); HEMATOCRIT 25.5 % (36.0-47.0); HEMOGLOBIN 8.1 g/dl (12.0-15.5); LYMPH # 0.9 10^3/uL (1.5-5.0); LYMPH % 10.9 % (24.0-44.0); MEAN CORPUSCULAR HEMOGLOBIN 29.1 pg (27.0-33.0); MEAN CORPUSCULAR HGB CONC 31.8 g/dl (32.0-36.5); MEAN CORPUSCULAR VOLUME 91.7 fl (80.0-96.0); MONO % 12.2 % (2.0-8.0); NEUTROPHILS # 5.2 10^3/uL (1.5-8.5); NEUTROPHILS % 66.8 % (36.0-66.0); PLATELET COUNT, AUTOMATED 277 10^3/uL (150-450); RED BLOOD COUNT 2.78 10^6/uL (4.00-5.40); WHITE BLOOD COUNT 7.8 10^3/uL (4.0-10.0)
[2023-11-26 08:59] LABS: CALCIUM LEVEL 8.5 MG/DL (8.3-10.6); CREATININE FOR GFR 1.22 MG/DL (0.55-1.30); GLOMERULAR FILTRATION RATE 45.5 (>39); POTASSIUM SERUM 2.9 MMOL/L (3.5-5.1)
[2023-11-26] MEDS: POTASSIUM CHLORIDE 10MEQ SR TABLET PO ONE (09:34)
[2023-11-26] MEDS: MAG SULF 1GM/100ML (MAG RUN) 1 GM in IV 1 EA IV SCH (10:27)
[2023-11-26] MEDS: POTASSIUM CHLORIDE 10% LIQ 20MEQ/15ML UDC PO SCH (10:28)
[2023-11-26] MEDS: KCL 10MEQ/100ML SWI (KRUN) 10 MEQ in IV 1 EA IV SCH (14:00)
[2023-11-26 15:27] VITALS: BP 173/65; TEMP 96.8; O2SAT 97
[2023-11-26 15:56] LABS: CALCIUM LEVEL 8.7 MG/DL (8.3-10.6); CREATININE FOR GFR 1.13 MG/DL (0.55-1.30); GLOMERULAR FILTRATION RATE 49.7 (>39); POTASSIUM SERUM 3.5 MMOL/L (3.5-5.1)
[2023-11-26] MEDS: AMINO AC/ELECTROLYTE/DEX/CALC 1,000 ML IV SCH (16:32)
[2023-11-26] MEDS: FAT EMULSION IV 250 ML IV ONE (17:45)
[2023-11-26 17:55] VITALS: BP 150/63
[2023-11-26 21:15] VITALS: BP 171/85; TEMP 97.3; O2SAT 95
[2023-11-27] MEDS: AMINO AC/ELECTROLYTE/DEX/CALC 2,000 ML IV SCH (03:54)
[2023-11-27 06:00] VITALS: BP 177/66; TEMP 97.3; O2SAT 93
[2023-11-27 06:50] LABS: BASO # 0.1 10^3/uL (0.0-0.2); BASO % 0.7 % (0.0-1.0); EOS # 0.6 10^3/uL (0.0-0.5); EOS % 7.4 % (0.0-3.0); HEMATOCRIT 25.2 % (36.0-47.0); LYMPH # 0.8 10^3/uL (1.5-5.0); LYMPH % 9.3 % (24.0-44.0); MEAN CORPUSCULAR HEMOGLOBIN 29.1 pg (27.0-33.0); MEAN CORPUSCULAR HGB CONC 31.7 g/dl (32.0-36.5); MEAN CORPUSCULAR VOLUME 91.6 fl (80.0-96.0); MONO # 0.9 10^3/uL (0.0-0.8); MONO % 11.5 % (2.0-8.0); NEUTROPHILS # 5.6 10^3/uL (1.5-8.5); NEUTROPHILS % 69.3 % (36.0-66.0); PLATELET COUNT, AUTOMATED 260 10^3/uL (150-450); RED BLOOD COUNT 2.75 10^6/uL (4.00-5.40); WHITE BLOOD COUNT 8.2 10^3/uL (4.0-10.0)
[2023-11-27 07:09] LABS: C REACTIVE PROTEIN QUANTITATIV 3.5 MG/DL (<1.0)
[2023-11-27 07:11] LABS: CALCIUM LEVEL 8.6 MG/DL (8.3-10.6); CREATININE FOR GFR 1.14 MG/DL (0.55-1.30); GLOMERULAR FILTRATION RATE 49.2 (>39); MAGNESIUM LEVEL 1.8 MG/DL (1.8-2.4); POTASSIUM SERUM 3.8 MMOL/L (3.5-5.1)
[2023-11-27 14:55] VITALS: BP 164/69; TEMP 97.7; O2SAT 94
[2023-11-27] MEDS: FAT EMULSION IV 250 ML IV ONE (17:41)
[2023-11-27 19:53] VITALS: BP 152/65; TEMP 97.7; O2SAT 95
[2023-11-28] MEDS: AMINO AC/ELECTROLYTE/DEX/CALC 2,000 ML IV SCH (01:44)
[2023-11-28 05:00] VITALS: BP 164/62; TEMP 97.5; O2SAT 95
[2023-11-28 06:25] LABS: BASO # 0.1 10^3/uL (0.0-0.2); BASO % 0.7 % (0.0-1.0); EOS # 0.6 10^3/uL (0.0-0.5); EOS % 6.6 % (0.0-3.0); HEMATOCRIT 26.1 % (36.0-47.0); HEMOGLOBIN 8.2 g/dl (12.0-15.5); LYMPH # 1.1 10^3/uL (1.5-5.0); LYMPH % 12.1 % (24.0-44.0); MEAN CORPUSCULAR HEMOGLOBIN 28.7 pg (27.0-33.0); MEAN CORPUSCULAR HGB CONC 31.4 g/dl (32.0-36.5); MEAN CORPUSCULAR VOLUME 91.3 fl (80.0-96.0); MONO # 0.9 10^3/uL (0.0-0.8); MONO % 10.6 % (2.0-8.0); PLATELET COUNT, AUTOMATED 254 10^3/uL (150-450); RED BLOOD COUNT 2.86 10^6/uL (4.00-5.40); WHITE BLOOD COUNT 8.8 10^3/uL (4.0-10.0)
[2023-11-28 06:56] LABS: C REACTIVE PROTEIN QUANTITATIV 2.7 MG/DL (<1.0)
[2023-11-28 06:57] LABS: CALCIUM LEVEL 8.7 MG/DL (8.3-10.6); CREATININE FOR GFR 1.15 MG/DL (0.55-1.30); GLOMERULAR FILTRATION RATE 48.7 (>39); MAGNESIUM LEVEL 1.7 MG/DL (1.8-2.4); POTASSIUM SERUM 3.8 MMOL/L (3.5-5.1)
[2023-11-28] MEDS: MAG SULF 1GM/100ML (MAG RUN) 1 GM in IV 1 EA IV SCH (08:24)
[2023-11-28 14:00] VITALS: BP 158/65; TEMP 97.5; O2SAT 96
[2023-11-28] MEDS: MULTIVITAMIN -ADULT INJECTION 10 ML, ZINC/COPPER/MANGANESE/SELENIUM 1 ML in AMINO AC/EL... IV SCH (17:42)
[2023-11-28] MEDS: FAT EMULSION IV 250 ML IV ONE (17:42)
[2023-11-28 21:30] VITALS: BP 163/66; TEMP 97.5; O2SAT 94
[2023-11-29 05:12] VITALS: BP 155/59; TEMP 97.5; O2SAT 93
[2023-11-29 06:24] LABS: BASO # 0.1 10^3/uL (0.0-0.2); BASO % 0.6 % (0.0-1.0); EOS # 0.5 10^3/uL (0.0-0.5); EOS % 5.9 % (0.0-3.0); HEMOGLOBIN 8.3 g/dl (12.0-15.5); LYMPH # 0.8 10^3/uL (1.5-5.0); LYMPH % 9.5 % (24.0-44.0); MEAN CORPUSCULAR HEMOGLOBIN 29.4 pg (27.0-33.0); MEAN CORPUSCULAR HGB CONC 31.9 g/dl (32.0-36.5); MEAN CORPUSCULAR VOLUME 92.2 fl (80.0-96.0); MONO # 1.1 10^3/uL (0.0-0.8); MONO % 11.9 % (2.0-8.0); NEUTROPHILS # 6.3 10^3/uL (1.5-8.5); NEUTROPHILS % 71.2 % (36.0-66.0); PLATELET COUNT, AUTOMATED 252 10^3/uL (150-450); RED BLOOD COUNT 2.82 10^6/uL (4.00-5.40); WHITE BLOOD COUNT 8.8 10^3/uL (4.0-10.0)
[2023-11-29 06:25] LABS: BLOOD UREA NITROGEN 50 MG/DL (9-23); CALCIUM LEVEL 8.7 MG/DL (8.3-10.6); CARBON DIOXIDE LEVEL 34 MMOL/L (20-31); CHLORIDE LEVEL 98 MMOL/L (98-107); CREATININE FOR GFR 1.08 MG/DL (0.55-1.30); GLOMERULAR FILTRATION RATE 52.4 (>39); GLUCOSE, FASTING 122 MG/DL (74-106); MAGNESIUM LEVEL 1.9 MG/DL (1.8-2.4); POTASSIUM SERUM 3.5 MMOL/L (3.5-5.1); SODIUM LEVEL 137 MMOL/L (136-145)
[2023-11-29 08:27] LABS: ALBUMIN 1.7 G/DL (3.2-5.2); ALKALINE PHOSPHATASE 298 U/L (46-116); ALT/SGPT 17 U/L (7.0-40); AST/SGOT 18 U/L (<34); BILIRUBIN,DIRECT < 0.1 MG/DL (<0.4); BILIRUBIN,TOTAL < 0.2 MG/DL (0.3-1.2); TOTAL PROTEIN 5.8 G/DL (5.7-8.2)
[2023-11-29] MEDS: FUROSEMIDE 40 MG TAB PO SCH (09:00)
[2023-11-29] MEDS ORDERED: FUROSEMIDE 20MG/2ML VIAL IV SCH (09:00)
[2023-11-29] MEDS: PIPERACILLIN/TAZOBACTAM SOD 3.375 GM in D5W MINI-BAG PLUS 50 ML IV SCH (11:33)
[2023-11-29 14:00] VITALS: BP 153/59; TEMP 97.7; O2SAT 94
[2023-11-29] MEDS: AMINO AC/ELECTROLYTE/DEX/CALC 1,000 ML IV SCH (15:50)
[2023-11-29 22:00] VITALS: BP 130/58; TEMP 97.3; O2SAT 99
[2023-11-29] MEDS: FAT EMULSION IV 250 ML IV ONE (22:18)
[2023-11-29] MEDS: AMINO AC/ELECTROLYTE/DEX/CALC 2,000 ML IV SCH (22:19)
[2023-11-30 07:03] LABS: BASO # 0.1 10^3/uL (0.0-0.2); BASO % 0.7 % (0.0-1.0); EOS # 0.6 10^3/uL (0.0-0.5); HEMATOCRIT 25.5 % (36.0-47.0); LYMPH % 13.1 % (24.0-44.0); MEAN CORPUSCULAR HEMOGLOBIN 29.2 pg (27.0-33.0); MEAN CORPUSCULAR HGB CONC 31.4 g/dl (32.0-36.5); MEAN CORPUSCULAR VOLUME 93.1 fl (80.0-96.0); MONO # 0.8 10^3/uL (0.0-0.8); MONO % 9.8 % (2.0-8.0); NEUTROPHILS # 5.2 10^3/uL (1.5-8.5); NEUTROPHILS % 67.5 % (36.0-66.0); PLATELET COUNT, AUTOMATED 237 10^3/uL (150-450); RED BLOOD COUNT 2.74 10^6/uL (4.00-5.40); WHITE BLOOD COUNT 7.6 10^3/uL (4.0-10.0)
[2023-11-30 07:39] LABS: C REACTIVE PROTEIN QUANTITATIV 2.3 MG/DL (<1.0)
[2023-11-30 07:40] LABS: CALCIUM LEVEL 8.5 MG/DL (8.3-10.6); CREATININE FOR GFR 1.12 MG/DL (0.55-1.30); GLOMERULAR FILTRATION RATE 50.2 (>39); POTASSIUM SERUM 3.8 MMOL/L (3.5-5.1)
[2023-11-30 12:26] VITALS: BP 143/55
[2023-11-30 14:00] VITALS: BP 132/60; TEMP 97.5; O2SAT 98
[2023-11-30] MEDS: AMINO AC/ELECTROLYTE/DEX/CALC 1,000 ML IV SCH (15:30)
[2023-11-30] MEDS: FAT EMULSION IV 250 ML IV ONE (18:41)
[2023-11-30] MEDS: MULTIVITAMIN -ADULT INJECTION 10 ML, ZINC/COPPER/MANGANESE/SELENIUM 1 ML in AMINO AC/EL... IV SCH (18:41)
[2023-11-30 20:00] VITALS: BP 89/53; TEMP 97.5; O2SAT 92
[2023-11-30 20:44] VITALS: BP 103/63
[2023-12-01 06:00] VITALS: BP 174/64; TEMP 97.7; O2SAT 93
[2023-12-01 06:05] VITALS: BP 160/59
[2023-12-01 07:11] LABS: BASO % 0.4 % (0.0-1.0); EOS # 0.6 10^3/uL (0.0-0.5); EOS % 6.1 % (0.0-3.0); HEMATOCRIT 26.1 % (36.0-47.0); HEMOGLOBIN 8.3 g/dl (12.0-15.5); LYMPH # 0.9 10^3/uL (1.5-5.0); LYMPH % 9.3 % (24.0-44.0); MEAN CORPUSCULAR HEMOGLOBIN 29.4 pg (27.0-33.0); MEAN CORPUSCULAR HGB CONC 31.8 g/dl (32.0-36.5); MEAN CORPUSCULAR VOLUME 92.6 fl (80.0-96.0); MONO # 0.8 10^3/uL (0.0-0.8); MONO % 8.7 % (2.0-8.0); NEUTROPHILS # 6.9 10^3/uL (1.5-8.5); NEUTROPHILS % 74.6 % (36.0-66.0); PLATELET COUNT, AUTOMATED 239 10^3/uL (150-450); RED BLOOD COUNT 2.82 10^6/uL (4.00-5.40); WHITE BLOOD COUNT 9.2 10^3/uL (4.0-10.0)
[2023-12-01 07:38] LABS: CALCIUM LEVEL 8.7 MG/DL (8.3-10.6); CREATININE FOR GFR 1.15 MG/DL (0.55-1.30); GLOMERULAR FILTRATION RATE 48.7 (>39); POTASSIUM SERUM 3.8 MMOL/L (3.5-5.1)
[2023-12-01 07:48] VITALS: BP 142/92; TEMP 97.7; O2SAT 94
[2023-12-01 14:00] VITALS: BP 161/60; TEMP 97.7; O2SAT 93
[2023-12-01] MEDS: AMINO AC/ELECTROLYTE/DEX/CALC 1,000 ML IV SCH (16:02)
[2023-12-01] MEDS: metroNIDAZOLE (FLAGYL) 500MG TABLET PO SCH (16:03)
[2023-12-01] MEDS: AMINO AC/ELECTROLYTE/DEX/CALC 2,000 ML IV SCH (18:30)
[2023-12-01] MEDS: FAT EMULSION IV 250 ML IV ONE (18:30)
[2023-12-01] MEDS: CIPROFLOXACIN 500MG TABLET PO SCH (18:32)
[2023-12-01 19:49] VITALS: BP 150/64; TEMP 97.7; O2SAT 92
[2023-12-01] MEDS: LORazepam 2 MG/ML 1ML VIAL IM STA (22:40)
[2023-12-02 05:02] VITALS: BP 152/61; TEMP 97.7; O2SAT 94
[2023-12-02] MEDS: AMINO AC/ELECTROLYTE/DEX/CALC 1,000 ML IV SCH (15:45)
[2023-12-02 17:14] VITALS: BP 157/67
[2023-12-02] MEDS: INSULIN LISPRO (NovoLOG) PER UNIT SC SCH (18:00)
[2023-12-02] MEDS: FAT EMULSION IV 250 ML IV ONE (18:17)
[2023-12-02] MEDS: MULTIVITAMIN -ADULT INJECTION 10 ML, ZINC/COPPER/MANGANESE/SELENIUM 1 ML in AMINO AC/EL... IV SCH (18:21)
[2023-12-02 20:57] VITALS: BP 144/67; TEMP 97.7; O2SAT 92
[2023-12-02] MEDS ORDERED: LORazepam 2 MG/ML 1ML VIAL IM STA (21:19)
[2023-12-02] MEDS: LORazepam 2 MG/ML 1ML VIAL IV PRN (22:17)
[2023-12-02 23:23] VITALS: BP 131/59
[2023-12-03 05:39] VITALS: BP 129/58; TEMP 97.5; O2SAT 92
[2023-12-03 06:15] LABS: BASO # 0.1 10^3/uL (0.0-0.2); BASO % 0.7 % (0.0-1.0); EOS # 0.3 10^3/uL (0.0-0.5); EOS % 4.6 % (0.0-3.0); HEMATOCRIT 26.4 % (36.0-47.0); HEMOGLOBIN 8.4 g/dl (12.0-15.5); LYMPH % 13.4 % (24.0-44.0); MEAN CORPUSCULAR HEMOGLOBIN 29.6 pg (27.0-33.0); MEAN CORPUSCULAR HGB CONC 31.8 g/dl (32.0-36.5); MONO # 0.9 10^3/uL (0.0-0.8); MONO % 12.5 % (2.0-8.0); NEUTROPHILS % 67.7 % (36.0-66.0); PLATELET COUNT, AUTOMATED 230 10^3/uL (150-450); RED BLOOD COUNT 2.84 10^6/uL (4.00-5.40); WHITE BLOOD COUNT 7.4 10^3/uL (4.0-10.0)
[2023-12-03 06:40] LABS: C REACTIVE PROTEIN QUANTITATIV 2.5 MG/DL (<1.0)
[2023-12-03 06:41] LABS: CALCIUM LEVEL 8.7 MG/DL (8.3-10.6); CREATININE FOR GFR 1.12 MG/DL (0.55-1.30); GLOMERULAR FILTRATION RATE 50.2 (>39); POTASSIUM SERUM 4.3 MMOL/L (3.5-5.1)
[2023-12-03] MEDS: ENOXAPARIN 40MG/0.4ML SYRINGE (J1650 PER 10MG) SC SCH (08:47)
[2023-12-03] MEDS: OCTREOTIDE ACETATE 100MCG/ML VIAL **IV ADMINISTRATION ONLY IV SCH (15:42)
[2023-12-03] MEDS: AMINO AC/ELECTROLYTE/DEX/CALC 1,000 ML IV SCH (16:18)
[2023-12-03] MEDS: AMINO AC/ELECTROLYTE/DEX/CALC 1,000 ML IV ONE (18:10)
[2023-12-03] MEDS: FAT EMULSION IV 250 ML IV ONE (18:10)
[2023-12-03 19:47] VITALS: BP 140/57; TEMP 97.3
[2023-12-04] MEDS: AMINO AC/ELECTROLYTE/DEX/CALC 2,000 ML IV SCH (04:51)
[2023-12-04 14:20] VITALS: BP 135/64; TEMP 97.5; O2SAT 94
[2023-12-04] MEDS: FAT EMULSION IV 250 ML IV ONE (17:02)
[2023-12-04] MEDS: AMINO AC/ELECTROLYTE/DEX/CALC 1,000 ML IV ONE (17:02)
[2023-12-04 20:14] VITALS: BP 153/31; TEMP 97.7; O2SAT 95
[2023-12-04 20:47] VITALS: BP 147/45; TEMP 97.9; O2SAT 94
[2023-12-04] MEDS: QUEtiapine FUMARATE 12.5 MG HALF-TAB PO PRN (21:47)
[2023-12-05] MEDS: AMINO AC/ELECTROLYTE/DEX/CALC 2,000 ML IV SCH (04:37)
[2023-12-05 05:06] VITALS: BP 153/61; TEMP 97.7; O2SAT 95
[2023-12-05] MEDS ORDERED: NITROGLYCERIN 0.3MG SUBL TAB SL STA (05:37)
[2023-12-05] MEDS: NITROGLYCERIN 0.4MG SUBL TABLET SL STA (05:48)
[2023-12-05 05:59] LABS: BASO # 0.1 10^3/uL (0.0-0.2); BASO % 0.6 % (0.0-1.0); EOS # 0.4 10^3/uL (0.0-0.5); EOS % 4.8 % (0.0-3.0); HEMATOCRIT 26.6 % (36.0-47.0); HEMOGLOBIN 8.4 g/dl (12.0-15.5); LYMPH # 0.9 10^3/uL (1.5-5.0); LYMPH % 10.5 % (24.0-44.0); MEAN CORPUSCULAR HEMOGLOBIN 29.5 pg (27.0-33.0); MEAN CORPUSCULAR HGB CONC 31.6 g/dl (32.0-36.5); MEAN CORPUSCULAR VOLUME 93.3 fl (80.0-96.0); MONO # 0.9 10^3/uL (0.0-0.8); MONO % 11.5 % (2.0-8.0); NEUTROPHILS # 5.8 10^3/uL (1.5-8.5); NEUTROPHILS % 71.5 % (36.0-66.0); PLATELET COUNT, AUTOMATED 215 10^3/uL (150-450); RED BLOOD COUNT 2.85 10^6/uL (4.00-5.40); WHITE BLOOD COUNT 8.2 10^3/uL (4.0-10.0)
[2023-12-05 06:21] LABS: CK-MB VALUE MASS < 1.0 NG/ML (<3.6)
[2023-12-05 06:22] LABS: CPK CREATINE PHOSPHOKINASE 19 U/L (34-145); MB/CK RELATIVE INDEX 5.26 (< OR =4)
[2023-12-05 06:23] LABS: ALKALINE PHOSPHATASE 221 U/L (46-116); ALT/SGPT 14 U/L (7.0-40); AST/SGOT 16 U/L (<34); BILIRUBIN,DIRECT < 0.1 MG/DL (<0.4); BILIRUBIN,TOTAL < 0.2 MG/DL (0.3-1.2); BLOOD UREA NITROGEN 49 MG/DL (9-23); CALCIUM LEVEL 8.8 MG/DL (8.3-10.6); CARBON DIOXIDE LEVEL 30 MMOL/L (20-31); CHLORIDE LEVEL 103 MMOL/L (98-107); CREATININE FOR GFR 1.18 MG/DL (0.55-1.30); GLOMERULAR FILTRATION RATE 47.3 (>39); GLUCOSE, FASTING 188 MG/DL (74-106); POTASSIUM SERUM 4.7 MMOL/L (3.5-5.1); SODIUM LEVEL 136 MMOL/L (136-145)
[2023-12-05 14:00] VITALS: BP 151/61; TEMP 97.5; O2SAT 94
[2023-12-05] MEDS: MULTIVITAMIN -ADULT INJECTION 10 ML, ZINC/COPPER/MANGANESE/SELENIUM 1 ML in AMINO AC/EL... IV SCH (18:09)
[2023-12-05] MEDS: FAT EMULSION IV 250 ML IV ONE (18:09)
[2023-12-05] MEDS: INSULIN LISPRO (NovoLOG) PER UNIT SC SCH (18:34)
[2023-12-05 20:10] VITALS: BP 100/58; TEMP 97.9; O2SAT 95
[2023-12-06] MEDS: QUEtiapine FUMARATE 25 MG TAB PO ONE (09:19)
[2023-12-06 14:00] VITALS: BP 166/65; TEMP 97.3; O2SAT 95
[2023-12-06] MEDS: FAT EMULSION IV 250 ML IV ONE (17:35)
[2023-12-06] MEDS: AMINO AC/ELECTROLYTE/DEX/CALC 2,000 ML IV SCH (17:35)
[2023-12-06] MEDS: INSULIN LISPRO (NovoLOG) PER UNIT SC SCH (18:57)
[2023-12-06] MEDS: metroNIDAZOLE (FLAGYL) 500MG TABLET PO SCH (21:38)
[2023-12-06] MEDS: HALOPERIDOL LACTATE 5MG/ML VIAL IM PRN (23:30)
[2023-12-07] MEDS ORDERED: QUEtiapine FUMARATE 25 MG TAB PO PRN (08:00)
[2023-12-07] MEDS ORDERED: E-Z-PAQUE 96% w/w SUSP 176GM BTL As Ordered ONE (10:03)
[2023-12-07] MEDS ORDERED: E-Z-GAS II EFFERVESCENT PACKET (SODIUM BICARB./CITRIC ACID/SIMETHICONE) As Ordered ONE (10:03)
[2023-12-07] MEDS ORDERED: E-Z-HD 98% w/w 340GM SUSP BTL As Ordered ONE (10:03)
[2023-12-07] MEDS ORDERED: ONDANSETRON 4MG 2ML VIAL IV PRN (11:30)
[2023-12-07 14:45] VITALS: BP 144/59; TEMP 97.6; O2SAT 95
[2023-12-07] MEDS: QUEtiapine FUMARATE 25 MG TAB PO PRN (15:07)
[2023-12-07] MEDS: AMINO AC/ELECTROLYTE/DEX/CALC 1,000 ML IV SCH (16:22)
[2023-12-07] MEDS: INSULIN LISPRO (NovoLOG) PER UNIT SC SCH (18:14)
[2023-12-07] MEDS: MULTIVITAMIN -ADULT INJECTION 10 ML, ZINC/COPPER/MANGANESE/SELENIUM 1 ML in AMINO AC/EL... IV SCH (18:16)
[2023-12-07] MEDS: FAT EMULSION IV 250 ML IV ONE (18:16)
[2023-12-07 19:32] VITALS: BP 144/55; TEMP 97.9; O2SAT 97
[2023-12-08 00:38] VITALS: BP 144/58
[2023-12-08 06:02] VITALS: BP 157/59; TEMP 97.5; O2SAT 95
[2023-12-08 07:13] LABS: BASO # 0.1 10^3/uL (0.0-0.2); BASO % 0.7 % (0.0-1.0); EOS # 0.3 10^3/uL (0.0-0.5); EOS % 3.8 % (0.0-3.0); HEMATOCRIT 26.3 % (36.0-47.0); HEMOGLOBIN 8.4 g/dl (12.0-15.5); LYMPH % 12.5 % (24.0-44.0); MEAN CORPUSCULAR HEMOGLOBIN 29.6 pg (27.0-33.0); MEAN CORPUSCULAR HGB CONC 31.9 g/dl (32.0-36.5); MEAN CORPUSCULAR VOLUME 92.6 fl (80.0-96.0); MONO # 0.9 10^3/uL (0.0-0.8); MONO % 12.2 % (2.0-8.0); NEUTROPHILS # 5.3 10^3/uL (1.5-8.5); NEUTROPHILS % 69.5 % (36.0-66.0); PLATELET COUNT, AUTOMATED 211 10^3/uL (150-450); RED BLOOD COUNT 2.84 10^6/uL (4.00-5.40); WHITE BLOOD COUNT 7.6 10^3/uL (4.0-10.0)
[2023-12-08 07:43] LABS: ALKALINE PHOSPHATASE 195 U/L (46-116); ALT/SGPT 11 U/L (7.0-40); AST/SGOT 15 U/L (<34); BILIRUBIN,DIRECT < 0.1 MG/DL (<0.4); BILIRUBIN,TOTAL < 0.2 MG/DL (0.3-1.2); BLOOD UREA NITROGEN 61 MG/DL (9-23); CALCIUM LEVEL 8.8 MG/DL (8.3-10.6); CARBON DIOXIDE LEVEL 28 MMOL/L (20-31); CHLORIDE LEVEL 100 MMOL/L (98-107); CREATININE FOR GFR 1.16 MG/DL (0.55-1.30); GLOMERULAR FILTRATION RATE 48.2 (>39); GLUCOSE, FASTING 195 MG/DL (74-106); POTASSIUM SERUM 4.4 MMOL/L (3.5-5.1); SODIUM LEVEL 135 MMOL/L (136-145); TOTAL PROTEIN 6.2 G/DL (5.7-8.2)
[2023-12-08 12:34] VITALS: BP 155/58; TEMP 97.7; O2SAT 96
[2023-12-08] MEDS: INSULIN LISPRO (NovoLOG) PER UNIT SC SCH (18:40)
[2023-12-08] MEDS: AMINO AC/ELECTROLYTE/DEX/CALC 2,000 ML IV SCH (18:41)
[2023-12-08] MEDS: FAT EMULSION IV 250 ML IV ONE (18:41)
[2023-12-08 19:45] VITALS: BP 153/53; TEMP 97.9; O2SAT 95
[2023-12-09 00:12] VITALS: BP 128/47
[2023-12-09 05:11] VITALS: BP 130/49; TEMP 97.7; O2SAT 94
[2023-12-09 10:25] VITALS: BP 129/51; TEMP 97.9; O2SAT 95
[2023-12-09 13:37] VITALS: BP 125/95; TEMP 97.5; O2SAT 99
[2023-12-09] MEDS: MULTIVITAMIN -ADULT INJECTION 10 ML, ZINC/COPPER/MANGANESE/SELENIUM 1 ML in AMINO AC/EL... IV SCH (17:28)
[2023-12-09] MEDS: FAT EMULSION IV 250 ML IV ONE (17:28)
[2023-12-09] MEDS: INSULIN LISPRO (NovoLOG) PER UNIT SC SCH (18:27)
[2023-12-09 22:00] VITALS: BP 129/51; TEMP 97.7; O2SAT 98
[2023-12-10 05:52] VITALS: BP 127/50; TEMP 97.7; O2SAT 96
[2023-12-10 14:07] VITALS: BP 143/57; TEMP 97.5; O2SAT 96
[2023-12-10 15:10] LABS: HEMATOCRIT 24.8 % (36.0-47.0); HEMOGLOBIN 7.7 g/dl (12.0-15.5); MEAN CORPUSCULAR HEMOGLOBIN 28.7 pg (27.0-33.0); MEAN CORPUSCULAR VOLUME 92.5 fl (80.0-96.0); PLATELET COUNT, AUTOMATED 206 10^3/uL (150-450); RED BLOOD COUNT 2.68 10^6/uL (4.00-5.40); WHITE BLOOD COUNT 6.7 10^3/uL (4.0-10.0)
[2023-12-10 15:22] LABS: ALBUMIN 1.9 G/DL (3.2-5.2); BILIRUBIN,TOTAL 0.2 MG/DL (0.3-1.2); CALCIUM LEVEL 8.5 MG/DL (8.3-10.6); CREATININE FOR GFR 1.31 MG/DL (0.55-1.30); GLOMERULAR FILTRATION RATE 41.9 (>39); POTASSIUM SERUM 4.3 MMOL/L (3.5-5.1); TOTAL PROTEIN 5.8 G/DL (5.7-8.2)
[2023-12-10] MEDS: INSULIN LISPRO (NovoLOG) PER UNIT SC SCH (17:43)
[2023-12-10] MEDS: FAT EMULSION IV 250 ML IV ONE (17:44)
[2023-12-10] MEDS: AMINO AC/ELECTROLYTE/DEX/CALC 2,000 ML IV SCH (17:44)
[2023-12-10 21:33] VITALS: BP 141/50; TEMP 97.9; O2SAT 98
[2023-12-11 05:25] VITALS: BP 109/45; TEMP 97.4; O2SAT 96
[2023-12-11 07:52] LABS: BASO # 0.1 10^3/uL (0.0-0.2); BASO % 0.6 % (0.0-1.0); EOS # 0.4 10^3/uL (0.0-0.5); EOS % 5.3 % (0.0-3.0); HEMATOCRIT 26.7 % (36.0-47.0); HEMOGLOBIN 8.4 g/dl (12.0-15.5); LYMPH % 12.9 % (24.0-44.0); MEAN CORPUSCULAR HEMOGLOBIN 29.3 pg (27.0-33.0); MEAN CORPUSCULAR HGB CONC 31.5 g/dl (32.0-36.5); MONO % 12.7 % (2.0-8.0); NEUTROPHILS # 5.2 10^3/uL (1.5-8.5); NEUTROPHILS % 66.7 % (36.0-66.0); PLATELET COUNT, AUTOMATED 209 10^3/uL (150-450); RED BLOOD COUNT 2.87 10^6/uL (4.00-5.40); WHITE BLOOD COUNT 7.8 10^3/uL (4.0-10.0)
[2023-12-11 08:16] LABS: ALKALINE PHOSPHATASE 171 U/L (46-116); ALT/SGPT 12 U/L (7.0-40); AST/SGOT 15 U/L (<34); BILIRUBIN,DIRECT < 0.1 MG/DL (<0.4); BILIRUBIN,TOTAL < 0.2 MG/DL (0.3-1.2); BLOOD UREA NITROGEN 65 MG/DL (9-23); CALCIUM LEVEL 8.5 MG/DL (8.3-10.6); CARBON DIOXIDE LEVEL 28 MMOL/L (20-31); CHLORIDE LEVEL 101 MMOL/L (98-107); CREATININE FOR GFR 1.25 MG/DL (0.55-1.30); GLOMERULAR FILTRATION RATE 44.2 (>39); GLUCOSE, FASTING 148 MG/DL (74-106); POTASSIUM SERUM 4.3 MMOL/L (3.5-5.1); SODIUM LEVEL 134 MMOL/L (136-145)
[2023-12-11 15:47] VITALS: BP 128/81; TEMP 97.9; O2SAT 97
[2023-12-11] MEDS: HALOPERIDOL LACTATE 5MG/ML VIAL IM PRN (17:18)
[2023-12-11 19:52] VITALS: BP 127/49; TEMP 98.6; O2SAT 95
[2023-12-11] MEDS: PANTOPRAZOLE 40MG TAB (PROTONIX) PO SCH (21:22)
[2023-12-12 05:40] VITALS: BP 145/59; TEMP 97.9; O2SAT 93
[2023-12-12] MEDS: GASTROGRAFIN SOLUTION 30ML PO SCH (06:20)
[2023-12-12 14:00] VITALS: BP 145/47; TEMP 97.9; O2SAT 95
[2023-12-12 19:40] VITALS: BP 136/52; TEMP 97.9; O2SAT 94
[2023-12-12 20:12] VITALS: BP 136/51; TEMP 97.9
[2023-12-13 00:55] VITALS: BP 136/64
[2023-12-13 04:40] VITALS: BP 135/62; TEMP 97.9; O2SAT 95
[2023-12-13 14:00] VITALS: BP 155/62; TEMP 98.1; O2SAT 95
[2023-12-13 22:00] VITALS: BP 142/58; TEMP 97.4; O2SAT 99
[2023-12-14 05:26] VITALS: BP 158/52; TEMP 97.7; O2SAT 97
[2023-12-14 07:13] LABS: HEMATOCRIT 28.2 % (36.0-47.0); HEMOGLOBIN 8.9 g/dl (12.0-15.5); MEAN CORPUSCULAR HEMOGLOBIN 28.7 pg (27.0-33.0); MEAN CORPUSCULAR HGB CONC 31.6 g/dl (32.0-36.5); PLATELET COUNT, AUTOMATED 226 10^3/uL (150-450); WHITE BLOOD COUNT 7.8 10^3/uL (4.0-10.0)
[2023-12-14 07:39] LABS: ALBUMIN 2.2 G/DL (3.2-5.2); BILIRUBIN,TOTAL 0.3 MG/DL (0.3-1.2); CALCIUM LEVEL 8.5 MG/DL (8.3-10.6); CREATININE FOR GFR 1.3 MG/DL (0.55-1.30); GLOMERULAR FILTRATION RATE 42.3 (>39); MAGNESIUM LEVEL 1.5 MG/DL (1.8-2.4); POTASSIUM SERUM 3.7 MMOL/L (3.5-5.1); TOTAL PROTEIN 6.1 G/DL (5.7-8.2)
[2023-12-14] MEDS: MAG SULF 1GM/100ML (MAG RUN) 1 GM in IV 1 EA IV SCH (09:23)
[2023-12-14 20:22] VITALS: BP_SYST 109; BP_SYST 134; BP_DIAS 46; BP_DIAS 57; TEMP 98.8; O2SAT 92
[2023-12-15] MEDS: DEXTROSE 50% 50ML SYRINGE IV PRN (05:52)
[2023-12-15 06:02] VITALS: BP 150/53; TEMP 97.5; O2SAT 95
[2023-12-15 07:06] LABS: HEMATOCRIT 28.3 % (36.0-47.0); MEAN CORPUSCULAR HEMOGLOBIN 29.3 pg (27.0-33.0); MEAN CORPUSCULAR HGB CONC 31.8 g/dl (32.0-36.5); MEAN CORPUSCULAR VOLUME 92.2 fl (80.0-96.0); PLATELET COUNT, AUTOMATED 199 10^3/uL (150-450); RED BLOOD COUNT 3.07 10^6/uL (4.00-5.40); WHITE BLOOD COUNT 7.7 10^3/uL (4.0-10.0)
[2023-12-15 07:45] LABS: ALBUMIN 2.1 G/DL (3.2-5.2); BILIRUBIN,TOTAL 0.3 MG/DL (0.3-1.2); CALCIUM LEVEL 8.3 MG/DL (8.3-10.6); CREATININE FOR GFR 1.38 MG/DL (0.55-1.30); GLOMERULAR FILTRATION RATE 39.5 (>39); MAGNESIUM LEVEL 1.7 MG/DL (1.8-2.4); POTASSIUM SERUM 3.9 MMOL/L (3.5-5.1)
[2023-12-15] MEDS: BREXPIPRAZOLE 0.5MG TABLET (REXULTI) PO SCH (09:00)
[2023-12-15 14:00] VITALS: BP 142/54; TEMP 97.9; O2SAT 97
[2023-12-15] MEDS: INSULIN LISPRO (NovoLOG) PER UNIT SC SCH ×2 (16:43→19:59)
[2023-12-15 19:20] VITALS: BP 114/45; TEMP 98.1; O2SAT 95
[2023-12-15] MEDS: LEVEMIR (INSULIN DETEMIR) 1 UNITS/0.01ML SC SCH (20:00)
[2023-12-15 23:56] VITALS: BP 131/50
[2023-12-16 05:02] VITALS: BP 133/52; TEMP 97.9; O2SAT 96
[2023-12-16] MEDS: LOPERAMIDE 2 MG CAPLET PO ONE (05:12)
[2023-12-16 06:30] LABS: HEMATOCRIT 26.9 % (36.0-47.0); HEMOGLOBIN 8.4 g/dl (12.0-15.5); MEAN CORPUSCULAR HEMOGLOBIN 28.6 pg (27.0-33.0); MEAN CORPUSCULAR HGB CONC 31.2 g/dl (32.0-36.5); MEAN CORPUSCULAR VOLUME 91.5 fl (80.0-96.0); PLATELET COUNT, AUTOMATED 193 10^3/uL (150-450); RED BLOOD COUNT 2.94 10^6/uL (4.00-5.40); WHITE BLOOD COUNT 7.1 10^3/uL (4.0-10.0)
[2023-12-16 06:46] LABS: ALBUMIN 1.9 G/DL (3.2-5.2); BILIRUBIN,TOTAL 0.2 MG/DL (0.3-1.2); CALCIUM LEVEL 8.2 MG/DL (8.3-10.6); CREATININE FOR GFR 1.32 MG/DL (0.55-1.30); GLOMERULAR FILTRATION RATE 41.5 (>39); MAGNESIUM LEVEL 1.4 MG/DL (1.8-2.4); POTASSIUM SERUM 3.8 MMOL/L (3.5-5.1); TOTAL PROTEIN 5.6 G/DL (5.7-8.2)
[2023-12-16] MEDS: MAGNESIUM OXIDE 400MG TAB (MAG-OX) PO SCH (08:36)
[2023-12-16] MEDS ORDERED: BREXPIPRAZOLE 0.5MG TABLET (REXULTI) PO SCH (09:00)
[2023-12-16 14:00] VITALS: BP 129/45; TEMP 97.9; O2SAT 99
[2023-12-16 22:00] VITALS: BP 134/54; TEMP 97.7; O2SAT 99
[2023-12-17 05:15] VITALS: BP 138/54; TEMP 97.3; O2SAT 98
[2023-12-17 07:15] LABS: HEMATOCRIT 26.9 % (36.0-47.0); HEMOGLOBIN 8.5 g/dl (12.0-15.5); MEAN CORPUSCULAR HEMOGLOBIN 28.9 pg (27.0-33.0); MEAN CORPUSCULAR HGB CONC 31.6 g/dl (32.0-36.5); MEAN CORPUSCULAR VOLUME 91.5 fl (80.0-96.0); PLATELET COUNT, AUTOMATED 181 10^3/uL (150-450); RED BLOOD COUNT 2.94 10^6/uL (4.00-5.40); WHITE BLOOD COUNT 7.7 10^3/uL (4.0-10.0)
[2023-12-17 07:46] LABS: ALBUMIN 1.9 G/DL (3.2-5.2); ALKALINE PHOSPHATASE 126 U/L (46-116); ALT/SGPT < 9 U/L (7.0-40); AST/SGOT 12 U/L (<34); BILIRUBIN,TOTAL 0.2 MG/DL (0.3-1.2); BLOOD UREA NITROGEN 23 MG/DL (9-23); CARBON DIOXIDE LEVEL 26 MMOL/L (20-31); CHLORIDE LEVEL 103 MMOL/L (98-107); CREATININE FOR GFR 1.21 MG/DL (0.55-1.30); GLOMERULAR FILTRATION RATE 45.9 (>39); GLUCOSE, FASTING 78 MG/DL (74-106); MAGNESIUM LEVEL 1.4 MG/DL (1.8-2.4); POTASSIUM SERUM 3.4 MMOL/L (3.5-5.1); SODIUM LEVEL 135 MMOL/L (136-145); TOTAL PROTEIN 5.8 G/DL (5.7-8.2)
[2023-12-17 14:48] VITALS: BP 130/50; TEMP 97.3; O2SAT 98
[2023-12-17 19:56] VITALS: BP 129/67; TEMP 98.2; O2SAT 98
[2023-12-18 04:45] VITALS: BP 124/45; TEMP 97.7; O2SAT 97
[2023-12-18 06:12] LABS: HEMATOCRIT 24.7 % (36.0-47.0); HEMOGLOBIN 7.6 g/dl (12.0-15.5); MEAN CORPUSCULAR HEMOGLOBIN 28.6 pg (27.0-33.0); MEAN CORPUSCULAR HGB CONC 30.8 g/dl (32.0-36.5); MEAN CORPUSCULAR VOLUME 92.9 fl (80.0-96.0); PLATELET COUNT, AUTOMATED 175 10^3/uL (150-450); RED BLOOD COUNT 2.66 10^6/uL (4.00-5.40)
[2023-12-18 06:46] LABS: ALBUMIN 1.7 G/DL (3.2-5.2); ALKALINE PHOSPHATASE 108 U/L (46-116); ALT/SGPT < 9 U/L (7.0-40); AST/SGOT 9 U/L (<34); BILIRUBIN,TOTAL 0.2 MG/DL (0.3-1.2); BLOOD UREA NITROGEN 18 MG/DL (9-23); CALCIUM LEVEL 7.6 MG/DL (8.3-10.6); CARBON DIOXIDE LEVEL 27 MMOL/L (20-31); CHLORIDE LEVEL 105 MMOL/L (98-107); GLOMERULAR FILTRATION RATE 46.4 (>39); GLUCOSE, FASTING 67 MG/DL (74-106); MAGNESIUM LEVEL 1.4 MG/DL (1.8-2.4); POTASSIUM SERUM 3.8 MMOL/L (3.5-5.1); SODIUM LEVEL 138 MMOL/L (136-145); TOTAL PROTEIN 5.2 G/DL (5.7-8.2)
[2023-12-18] MEDS: LIDOCAINE 5% (LIDODERM) PATCH TD SCH (12:21)
[2023-12-18] MEDS: LACTOBACILLUS ACIDOPHILUS CAP (BACID) PO SCH (12:21)
[2023-12-18 14:36] VITALS: BP 123/47; TEMP 97.9; O2SAT 97
[2023-12-18] MEDS: MAGNESIUM OXIDE 400MG TAB (MAG-OX) PO SCH (15:07)
[2023-12-18 19:45] VITALS: BP 114/58; TEMP 98.1; O2SAT 98
[2023-12-19 06:00] VITALS: BP 125/52; TEMP 97.6; O2SAT 99
[2023-12-19 06:33] LABS: HEMATOCRIT 25.6 % (36.0-47.0); MEAN CORPUSCULAR HEMOGLOBIN 28.9 pg (27.0-33.0); MEAN CORPUSCULAR HGB CONC 31.3 g/dl (32.0-36.5); MEAN CORPUSCULAR VOLUME 92.4 fl (80.0-96.0); PLATELET COUNT, AUTOMATED 190 10^3/uL (150-450); RED BLOOD COUNT 2.77 10^6/uL (4.00-5.40); WHITE BLOOD COUNT 6.6 10^3/uL (4.0-10.0)
[2023-12-19 06:51] LABS: ALBUMIN 1.9 G/DL (3.2-5.2); ALKALINE PHOSPHATASE 119 U/L (46-116); ALT/SGPT < 9 U/L (7.0-40); AST/SGOT 14 U/L (<34); BILIRUBIN,TOTAL 0.2 MG/DL (0.3-1.2); BLOOD UREA NITROGEN 14 MG/DL (9-23); CALCIUM LEVEL 8.1 MG/DL (8.3-10.6); CARBON DIOXIDE LEVEL 24 MMOL/L (20-31); CHLORIDE LEVEL 106 MMOL/L (98-107); CREATININE FOR GFR 1.09 MG/DL (0.55-1.30); GLOMERULAR FILTRATION RATE 51.8 (>39); GLUCOSE, FASTING 70 MG/DL (74-106); MAGNESIUM LEVEL 1.3 MG/DL (1.8-2.4); POTASSIUM SERUM 4.1 MMOL/L (3.5-5.1); SODIUM LEVEL 136 MMOL/L (136-145); TOTAL PROTEIN 5.7 G/DL (5.7-8.2)
[2023-12-19 14:28] VITALS: BP 142/51; TEMP 97.9; O2SAT 97
[2023-12-20 06:01] VITALS: BP 161/58; TEMP 97.5; O2SAT 97
[2023-12-20 06:11] LABS: HEMATOCRIT 24.5 % (36.0-47.0); HEMOGLOBIN 7.8 g/dl (12.0-15.5); MEAN CORPUSCULAR HEMOGLOBIN 29.2 pg (27.0-33.0); MEAN CORPUSCULAR HGB CONC 31.8 g/dl (32.0-36.5); MEAN CORPUSCULAR VOLUME 91.8 fl (80.0-96.0); PLATELET COUNT, AUTOMATED 198 10^3/uL (150-450); RED BLOOD COUNT 2.67 10^6/uL (4.00-5.40); WHITE BLOOD COUNT 6.5 10^3/uL (4.0-10.0)
[2023-12-20 06:36] LABS: ALBUMIN 1.8 G/DL (3.2-5.2); ALKALINE PHOSPHATASE 113 U/L (46-116); ALT/SGPT 9 U/L (7.0-40); AST/SGOT 19 U/L (<34); BILIRUBIN,TOTAL < 0.2 MG/DL (0.3-1.2); BLOOD UREA NITROGEN 11 MG/DL (9-23); CALCIUM LEVEL 7.9 MG/DL (8.3-10.6); CARBON DIOXIDE LEVEL 24 MMOL/L (20-31); CHLORIDE LEVEL 109 MMOL/L (98-107); CREATININE FOR GFR 0.98 MG/DL (0.55-1.30); GLOMERULAR FILTRATION RATE 58.6 (>39); GLUCOSE, FASTING 133 MG/DL (74-106); MAGNESIUM LEVEL 1.3 MG/DL (1.8-2.4); POTASSIUM SERUM 4.2 MMOL/L (3.5-5.1); SODIUM LEVEL 139 MMOL/L (136-145); TOTAL PROTEIN 5.5 G/DL (5.7-8.2)
[2023-12-20 14:00] VITALS: BP 130/41; TEMP 97.9; O2SAT 97
[2023-12-20 20:30] VITALS: BP 135/46; TEMP 97.9; O2SAT 96
[2023-12-20 20:34] VITALS: BP 112/54; TEMP 97.7; O2SAT 91
[2023-12-21] MEDS: ONDANSETRON 4MG ORAL DISINTEGRATING TAB PO PRN (04:24)
[2023-12-21 05:59] VITALS: BP 134/47; TEMP 98.4; O2SAT 98
[2023-12-21 14:00] VITALS: BP 147/52; TEMP 97.7; O2SAT 97
[2023-12-21 21:11] VITALS: BP 150/53; TEMP 98.1; O2SAT 94
[2023-12-22 14:00] VITALS: BP 142/53; TEMP 98.2; O2SAT 95
[2023-12-22 19:18] VITALS: BP 134/51; TEMP 98.2; O2SAT 96
[2023-12-23 08:45] VITALS: BP 147/61; TEMP 97.9; O2SAT 97
[2023-12-23 14:25] VITALS: BP 132/59; TEMP 98.1; O2SAT 97
[2023-12-23 21:59] VITALS: BP 150/48; TEMP 97.6; O2SAT 95
[2023-12-24 05:41] VITALS: BP 130/50; TEMP 97.9; O2SAT 96
[2023-12-24 14:00] VITALS: BP 112/41; TEMP 97.9; O2SAT 94
[2023-12-24 22:00] VITALS: BP 111/42; TEMP 97.7; O2SAT 98
[2023-12-25 05:39] VITALS: BP 118/45; TEMP 97.9; O2SAT 98
[2023-12-25 13:44] VITALS: BP 143/53; TEMP 97.9; O2SAT 91
[2023-12-26 05:48] VITALS: BP 162/62; TEMP 98.4; O2SAT 95
[2023-12-26 08:35] LABS: HEMATOCRIT 27.9 % (36.0-47.0); HEMOGLOBIN 8.7 g/dl (12.0-15.5); MEAN CORPUSCULAR HEMOGLOBIN 28.7 pg (27.0-33.0); MEAN CORPUSCULAR HGB CONC 31.2 g/dl (32.0-36.5); MEAN CORPUSCULAR VOLUME 92.1 fl (80.0-96.0); PLATELET COUNT, AUTOMATED 259 10^3/uL (150-450); RED BLOOD COUNT 3.03 10^6/uL (4.00-5.40); WHITE BLOOD COUNT 5.9 10^3/uL (4.0-10.0)
[2023-12-26 09:03] LABS: ALBUMIN 2.2 G/DL (3.2-5.2); ALKALINE PHOSPHATASE 93 U/L (46-116); ALT/SGPT < 9 U/L (7.0-40); AST/SGOT 13 U/L (<34); BILIRUBIN,TOTAL < 0.2 MG/DL (0.3-1.2); BLOOD UREA NITROGEN 15 MG/DL (9-23); CALCIUM LEVEL 9.3 MG/DL (8.3-10.6); CARBON DIOXIDE LEVEL 31 MMOL/L (20-31); CHLORIDE LEVEL 104 MMOL/L (98-107); CREATININE FOR GFR 1.17 MG/DL (0.55-1.30); GLOMERULAR FILTRATION RATE 47.7 (>39); GLUCOSE, FASTING 136 MG/DL (74-106); MAGNESIUM LEVEL 1.5 MG/DL (1.8-2.4); POTASSIUM SERUM 4.8 MMOL/L (3.5-5.1); SODIUM LEVEL 139 MMOL/L (136-145); TOTAL PROTEIN 5.9 G/DL (5.7-8.2)
[2023-12-26 20:00] VITALS: BP 136/50; TEMP 98.1; O2SAT 94
[2023-12-27 06:00] VITALS: BP 128/52; TEMP 97.7; O2SAT 96
[2023-12-27 14:21] VITALS: BP 155/55; TEMP 97.9; O2SAT 97
[2023-12-27 20:00] VITALS: BP 152/54; TEMP 97.9; O2SAT 95
[2023-12-28 05:28] VITALS: BP 144/49; TEMP 98.1; O2SAT 98
[2023-12-28 14:15] VITALS: BP 149/56; TEMP 97.7; O2SAT 97
[2023-12-28 19:54] VITALS: BP 145/71; TEMP 98.4; O2SAT 95
[2023-12-29 06:42] VITALS: BP 171/89; TEMP 97.9; O2SAT 99
[2023-12-29 09:35] VITALS: BP 165/62
[2023-12-29 14:31] VITALS: BP 159/50; TEMP 97.9; O2SAT 93
[2023-12-29 20:09] VITALS: BP 158/57; TEMP 98.4; O2SAT 94
[2023-12-30 06:59] VITALS: BP 162/62; TEMP 98.2; O2SAT 95
[2023-12-30 14:40] VITALS: BP 165/57; TEMP 98.1; O2SAT 95
[2023-12-30 21:03] VITALS: BP 158/61; TEMP 98.1; O2SAT 95
[2023-12-31 06:00] VITALS: BP 163/60; TEMP 97.3; O2SAT 95
[2023-12-31 14:37] VITALS: BP 161/60; TEMP 98.8; O2SAT 96
[2023-12-31 20:17] VITALS: BP 142/75; TEMP 98.4; O2SAT 96
[2024-01-01 06:37] VITALS: BP 148/74; TEMP 97.9; O2SAT 96
[2024-01-01 19:33] VITALS: BP 177/68; TEMP 98.1; O2SAT 96
[2024-01-02 06:07] VITALS: BP 167/77; TEMP 98.6; O2SAT 100
[2024-01-02 14:00] VITALS: BP 162/63; TEMP 97.9; O2SAT 98
[2024-01-02 20:05] VITALS: BP 161/64; TEMP 97.9; O2SAT 98
[2024-01-03 06:24] VITALS: BP 190/115; TEMP 97.9; O2SAT 96
[2024-01-03 14:10] VITALS: BP 156/82; TEMP 98.3; O2SAT 98
[2024-01-03 19:40] VITALS: BP 156/70; TEMP 98.1; O2SAT 95
[2024-01-04 05:50] VITALS: BP 156/69; TEMP 97.7; O2SAT 91
[2024-01-04] MEDS: CEPHALEXIN 500 MG CAP PO SCH (12:47)
[2024-01-04 14:00] VITALS: BP 165/64; TEMP 98.2; O2SAT 96
[2024-01-04 20:09] VITALS: BP 156/65; TEMP 98.2; O2SAT 95
[2024-01-05 05:30] VITALS: BP 121/70; TEMP 97; O2SAT 95
[2024-01-06 06:51] VITALS: BP 154/76; TEMP 97.8; O2SAT 98
[2024-01-06 09:00] VITALS: BP 167/70; TEMP 97.7
[2024-01-06 14:00] VITALS: BP 165/65; TEMP 97.5; O2SAT 99
[2024-01-06 15:35] VITALS: BP 200/60; TEMP 97.5; O2SAT 96
[2024-01-06] MEDS ORDERED: **hydrALAZINE HCL** 25 MG TAB PO PRN (15:55)
[2024-01-06] MEDS: **hydrALAZINE HCL** 25 MG TAB PO PRN ×2 (16:09→17:47)
[2024-01-06 16:41] LABS: MAGNESIUM LEVEL 1.7 MG/DL (1.8-2.4); POTASSIUM SERUM 4.4 MMOL/L (3.5-5.1)
[2024-01-06 17:18] VITALS: BP 176/60
[2024-01-06 20:55] VITALS: BP 150/63
[2024-01-06] MEDS: LOSARTAN 25 MG TAB PO SCH (20:56)
[2024-01-06] MEDS ORDERED: VERAPAMIL 120MG SR TAB PO SCH (21:00)
[2024-01-07 05:38] VITALS: BP 192/78; TEMP 97.5; O2SAT 98
[2024-01-07 06:34] VITALS: BP 166/67
[2024-01-07] MEDS: POTASSIUM CHLORIDE 10% LIQ 20MEQ/15ML UDC PO SCH (08:50)
[2024-01-07] MEDS: LOSARTAN 25 MG TAB PO SCH (10:10)
[2024-01-07 12:30] VITALS: BP 168/67; TEMP 97.7; O2SAT 95
[2024-01-07 12:39] VITALS: BP 168/67; TEMP 97.7; O2SAT 95
[2024-01-07 12:59] LABS: ABG BASE EXCESS 3.9 (-2.0-2.0); ABG HCO3 27.3 MMOL/L (22.0-26.0); ABG O2 SATURATION 96.4 % (95.0-99.0); ABG PARTIAL PRESSURE CO2 36.6 mmHg (35.0-45.0); ABG PARTIAL PRESSURE O2 81.2 mmHg (75.0-100.0); ABG STANDARD HCO3 27.9 MMOL/L. (22.0-26.0); ABG TOTAL CO2 28.4 MMOL/L (23.0-31.0)
[2024-01-07 13:20] LABS: HEMATOCRIT 32.8 % (36.0-47.0); HEMOGLOBIN 10.7 g/dl (12.0-15.5); MEAN CORPUSCULAR HEMOGLOBIN 28.8 pg (27.0-33.0); MEAN CORPUSCULAR HGB CONC 32.6 g/dl (32.0-36.5); MEAN CORPUSCULAR VOLUME 88.2 fl (80.0-96.0); PLATELET COUNT, AUTOMATED 260 10^3/uL (150-450); RED BLOOD COUNT 3.72 10^6/uL (4.00-5.40); WHITE BLOOD COUNT 6.3 10^3/uL (4.0-10.0)
[2024-01-07 13:43] LABS: ALBUMIN 2.8 G/DL (3.2-5.2); ALKALINE PHOSPHATASE 80 U/L (46-116); ALT/SGPT < 9 U/L (7.0-40); AST/SGOT 14 U/L (<34); BILIRUBIN,TOTAL 0.2 MG/DL (0.3-1.2); BLOOD UREA NITROGEN 17 MG/DL (9-23); CALCIUM LEVEL 9.5 MG/DL (8.3-10.6); CARBON DIOXIDE LEVEL 28 MMOL/L (20-31); CHLORIDE LEVEL 100 MMOL/L (98-107); GLOMERULAR FILTRATION RATE > 60.0 (>39); GLUCOSE, FASTING 206 MG/DL (74-106); MAGNESIUM LEVEL 1.6 MG/DL (1.8-2.4); POTASSIUM SERUM 4.2 MMOL/L (3.5-5.1); SODIUM LEVEL 136 MMOL/L (136-145); TOTAL PROTEIN 6.6 G/DL (5.7-8.2)
[2024-01-07 14:44] VITALS: BP 167/75; TEMP 97.5; O2SAT 96
[2024-01-07] MEDS: D5W/0.45% SODIUM CHLORIDE 1,000 ML IV SCH (17:13)
[2024-01-08 06:47] VITALS: BP 118/52; TEMP 97.7; O2SAT 96
[2024-01-08 10:22] VITALS: BP 158/62; TEMP 97.5; O2SAT 98
[2024-01-08 19:29] VITALS: BP 157/60; TEMP 98.1; O2SAT 94
[2024-01-09 06:43] VITALS: BP 162/61; TEMP 98.1; O2SAT 93
[2024-01-09 22:16] VITALS: BP 144/60; TEMP 97.9; O2SAT 91
[2024-01-09] MEDS: MAALOX 30 ML SUSP *UDC PO PRN (22:30)
[2024-01-09 22:53] LABS: BASO % 0.6 % (0.0-1.0); EOS # 0.3 10^3/uL (0.0-0.5); EOS % 4.7 % (0.0-3.0); HEMATOCRIT 28.6 % (36.0-47.0); HEMOGLOBIN 9.2 g/dl (12.0-15.5); LYMPH # 1.3 10^3/uL (1.5-5.0); LYMPH % 20.6 % (24.0-44.0); MEAN CORPUSCULAR HEMOGLOBIN 29.1 pg (27.0-33.0); MEAN CORPUSCULAR HGB CONC 32.2 g/dl (32.0-36.5); MEAN CORPUSCULAR VOLUME 90.5 fl (80.0-96.0); MONO # 0.7 10^3/uL (0.0-0.8); MONO % 10.9 % (2.0-8.0); NEUTROPHILS % 62.6 % (36.0-66.0); PLATELET COUNT, AUTOMATED 208 10^3/uL (150-450); RED BLOOD COUNT 3.16 10^6/uL (4.00-5.40); WHITE BLOOD COUNT 6.4 10^3/uL (4.0-10.0)
[2024-01-09 23:15] LABS: CK-MB VALUE MASS 1.5 NG/ML (<3.6)
[2024-01-09 23:18] LABS: ALBUMIN 2.6 G/DL (3.2-5.2); ALKALINE PHOSPHATASE 75 U/L (46-116); ALT/SGPT 10 U/L (7.0-40); AST/SGOT 20 U/L (<34); BILIRUBIN,TOTAL < 0.2 MG/DL (0.3-1.2); BLOOD UREA NITROGEN 26 MG/DL (9-23); CALCIUM LEVEL 9.1 MG/DL (8.3-10.6); CARBON DIOXIDE LEVEL 28 MMOL/L (20-31); CHLORIDE LEVEL 100 MMOL/L (98-107); CPK CREATINE PHOSPHOKINASE 71 U/L (34-145); CREATININE FOR GFR 1.22 MG/DL (0.55-1.30); GLOMERULAR FILTRATION RATE 45.5 (>39); GLUCOSE, FASTING 122 MG/DL (74-106); MAGNESIUM LEVEL 1.9 MG/DL (1.8-2.4); MB/CK RELATIVE INDEX 2.11 (< OR =4); POTASSIUM SERUM 5.2 MMOL/L (3.5-5.1); SODIUM LEVEL 133 MMOL/L (136-145); TOTAL PROTEIN 5.9 G/DL (5.7-8.2)
[2024-01-10 03:03] LABS: CK-MB VALUE MASS 1.8 NG/ML (<3.6)
[2024-01-10 03:20] LABS: MB/CK RELATIVE INDEX 2.72 (< OR =4)
[2024-01-10 08:25] LABS: BASO # 0.1 10^3/uL (0.0-0.2); BASO % 0.9 % (0.0-1.0); EOS # 0.3 10^3/uL (0.0-0.5); EOS % 5.5 % (0.0-3.0); HEMATOCRIT 33.1 % (36.0-47.0); HEMOGLOBIN 10.2 g/dl (12.0-15.5); LYMPH # 0.9 10^3/uL (1.5-5.0); MEAN CORPUSCULAR HEMOGLOBIN 28.7 pg (27.0-33.0); MEAN CORPUSCULAR HGB CONC 30.8 g/dl (32.0-36.5); MEAN CORPUSCULAR VOLUME 93.2 fl (80.0-96.0); MONO # 0.5 10^3/uL (0.0-0.8); MONO % 8.3 % (2.0-8.0); NEUTROPHILS # 3.7 10^3/uL (1.5-8.5); NEUTROPHILS % 68.7 % (36.0-66.0); PLATELET COUNT, AUTOMATED 198 10^3/uL (150-450); RED BLOOD COUNT 3.55 10^6/uL (4.00-5.40); WHITE BLOOD COUNT 5.4 10^3/uL (4.0-10.0)
[2024-01-10 08:51] LABS: ALBUMIN 2.9 G/DL (3.2-5.2); ALKALINE PHOSPHATASE 80 U/L (46-116); ALT/SGPT 10 U/L (7.0-40); AST/SGOT 19 U/L (<34); BILIRUBIN,DIRECT < 0.1 MG/DL (<0.4); BILIRUBIN,TOTAL 0.2 MG/DL (0.3-1.2); BLOOD UREA NITROGEN 25 MG/DL (9-23); CALCIUM LEVEL 9.7 MG/DL (8.3-10.6); CARBON DIOXIDE LEVEL 25 MMOL/L (20-31); CHLORIDE LEVEL 100 MMOL/L (98-107); CREATININE FOR GFR 1.11 MG/DL (0.55-1.30); GLOMERULAR FILTRATION RATE 50.7 (>39); GLUCOSE, FASTING 136 MG/DL (74-106); POTASSIUM SERUM 4.6 MMOL/L (3.5-5.1); PROCALCITONIN <0.04 ng/ml; SODIUM LEVEL 134 MMOL/L (136-145); TOTAL PROTEIN 6.5 G/DL (5.7-8.2)
[2024-01-10] MEDS: DOCUSATE SODIUM 100MG CAPSULE PO SCH (09:00)
[2024-01-10] MEDS: LOSARTAN 25 MG TAB PO ONE (12:28)
[2024-01-11 05:32] VITALS: BP 181/75; TEMP 97.5; O2SAT 97
[2024-01-11] MEDS: LOSARTAN 50MG TABLET PO SCH ×2 (08:11→20:53)
[2024-01-11] MEDS: ISOSORBIDE DIN. (ISORDIL) 20 MG TAB PO ONE (16:14)
[2024-01-11 20:18] VITALS: BP 157/55
[2024-01-11] MEDS: ISOSORBIDE DIN. (ISORDIL) 20 MG TAB PO SCH (20:53)
[2024-01-12 05:27] VITALS: BP 159/54; TEMP 97.7; O2SAT 94
[2024-01-12 07:22] LABS: BASO # 0.1 10^3/uL (0.0-0.2); BASO % 0.9 % (0.0-1.0); EOS # 0.3 10^3/uL (0.0-0.5); EOS % 4.8 % (0.0-3.0); HEMATOCRIT 29.6 % (36.0-47.0); HEMOGLOBIN 9.4 g/dl (12.0-15.5); LYMPH # 1.2 10^3/uL (1.5-5.0); LYMPH % 20.7 % (24.0-44.0); MEAN CORPUSCULAR HEMOGLOBIN 28.6 pg (27.0-33.0); MEAN CORPUSCULAR HGB CONC 31.8 g/dl (32.0-36.5); MONO # 0.6 10^3/uL (0.0-0.8); MONO % 9.8 % (2.0-8.0); NEUTROPHILS # 3.5 10^3/uL (1.5-8.5); NEUTROPHILS % 63.1 % (36.0-66.0); PLATELET COUNT, AUTOMATED 200 10^3/uL (150-450); RED BLOOD COUNT 3.29 10^6/uL (4.00-5.40); WHITE BLOOD COUNT 5.6 10^3/uL (4.0-10.0)
[2024-01-12 07:49] LABS: CALCIUM LEVEL 9.7 MG/DL (8.3-10.6); CREATININE FOR GFR 1.02 MG/DL (0.55-1.30); GLOMERULAR FILTRATION RATE 55.9 (>39); POTASSIUM SERUM 4.4 MMOL/L (3.5-5.1)
[2024-01-13 05:49] VITALS: BP 133/71; TEMP 97.7; O2SAT 95
[2024-01-13 05:58] VITALS: BP 171/48; TEMP 97.9; O2SAT 92
[2024-01-13 06:33] VITALS: BP 165/55
[2024-01-13 07:57] LABS: BASO % 0.4 % (0.0-1.0); EOS # 0.2 10^3/uL (0.0-0.5); EOS % 4.5 % (0.0-3.0); HEMOGLOBIN 9.5 g/dl (12.0-15.5); LYMPH # 1.2 10^3/uL (1.5-5.0); LYMPH % 22.1 % (24.0-44.0); MEAN CORPUSCULAR HEMOGLOBIN 28.4 pg (27.0-33.0); MEAN CORPUSCULAR HGB CONC 31.7 g/dl (32.0-36.5); MEAN CORPUSCULAR VOLUME 89.6 fl (80.0-96.0); MONO # 0.6 10^3/uL (0.0-0.8); NEUTROPHILS # 3.3 10^3/uL (1.5-8.5); NEUTROPHILS % 61.4 % (36.0-66.0); PLATELET COUNT, AUTOMATED 194 10^3/uL (150-450); RED BLOOD COUNT 3.35 10^6/uL (4.00-5.40); WHITE BLOOD COUNT 5.3 10^3/uL (4.0-10.0)
[2024-01-13 08:25] LABS: ALBUMIN 2.7 G/DL (3.2-5.2); BILIRUBIN,TOTAL 0.3 MG/DL (0.3-1.2); CALCIUM LEVEL 9.9 MG/DL (8.3-10.6); CREATININE FOR GFR 1.05 MG/DL (0.55-1.30); GLOMERULAR FILTRATION RATE 54.1 (>39); POTASSIUM SERUM 4.3 MMOL/L (3.5-5.1); TOTAL PROTEIN 6.1 G/DL (5.7-8.2)
[2024-01-13] MEDS: ISOSORBIDE DIN. (ISORDIL) 20 MG TAB PO SCH (09:02)
[2024-01-13 20:18] VITALS: BP 150/49
[2024-01-13 23:52] VITALS: BP 145/48
[2024-01-14] VITALS (8 sets, daily range): BP systolic 134–189; BP diastolic 45–93; TEMP 97.5–97.9; O2SAT 96–97
[2024-01-14] MEDS: LOSARTAN 50MG TABLET PO SCH (08:22)
[2024-01-14] MEDS: NITROGLYCERIN 0.4MG SUBL TABLET SL PRN (15:43)
[2024-01-14 16:22] LABS: CK-MB VALUE MASS < 1.0 NG/ML (<3.6)
[2024-01-14 16:23] LABS: CPK CREATINE PHOSPHOKINASE 28 U/L (34-145); MB/CK RELATIVE INDEX 3.57 (< OR =4)
[2024-01-14] MEDS: cloNIDine 0.1MG TABLET PO ONE (17:30)
[2024-01-14] MEDS: ISOSORBIDE DIN. (ISORDIL) 20 MG TAB PO ONE (17:31)
[2024-01-14] MEDS: ISOSORBIDE MON. (IMDUR) 60MG XR TAB PO SCH (20:42)
[2024-01-14] MEDS: SENOKOT S TAB PO SCH (20:42)
[2024-01-14] MEDS: LEVEMIR (INSULIN DETEMIR) 1 UNITS/0.01ML SC SCH (20:57)
[2024-01-14] MEDS ORDERED: ISOSORBIDE MON. (IMDUR) 30MG XR TAB PO SCH (21:00)
[2024-01-15 05:00] VITALS: BP 168/61; TEMP 97.3; O2SAT 96
[2024-01-15] MEDS: cloNIDine 0.1MG TABLET PO ONE (08:16)
[2024-01-15] MEDS: ISOSORBIDE MON. (IMDUR) 60MG XR TAB PO ONE (08:17)
[2024-01-15] MEDS: ACETAMINOPHEN *IV* 1,000 MG in IV 1 EA IV ONE (13:30)
[2024-01-15] MEDS ORDERED: MOM 30ML SUSPENSION UDC PO PRN (13:35)
[2024-01-15 14:00] VITALS: BP 129/52; TEMP 97.7; O2SAT 95
[2024-01-15 14:27] LABS: ALBUMIN 2.5 G/DL (3.2-5.2); ALKALINE PHOSPHATASE 73 U/L (46-116); ALT/SGPT 10 U/L (7.0-40); AST/SGOT 14 U/L (<34); BILIRUBIN,DIRECT < 0.1 MG/DL (<0.4); BILIRUBIN,TOTAL 0.2 MG/DL (0.3-1.2); TOTAL PROTEIN 5.6 G/DL (5.7-8.2)
[2024-01-15] MEDS: MOM 30ML SUSPENSION UDC PO ONE (14:50)
[2024-01-15] MEDS: **hydrALAZINE HCL** 25 MG TAB PO SCH (15:29)
[2024-01-15 15:32] VITALS: BP 139/45; TEMP 97.2; O2SAT 97
[2024-01-15] MEDS: traMADol 50 MG TAB PO ONE (15:52)
[2024-01-15] MEDS: BISACODYL 10MG SUPP PR SCH (20:10)
[2024-01-16] MEDS: traMADol 50 MG TAB PO ONE (03:47)
[2024-01-16 06:09] VITALS: BP 127/41; TEMP 97.9; O2SAT 92
[2024-01-16] MEDS: cloNIDine 0.1MG TABLET PO PRN (12:10)
[2024-01-16] MEDS: ISOSORBIDE MON. (IMDUR) 60MG XR TAB PO SCH (12:11)
[2024-01-16 12:18] VITALS: BP 190/90; TEMP 97.7; O2SAT 98
[2024-01-16] MEDS: NITROGLYCERIN 0.4MG SUBL TABLET SL STA (12:47)
[2024-01-16 13:01] VITALS: BP 128/64
[2024-01-16 13:19] LABS: BASO % 0.6 % (0.0-1.0); EOS # 0.3 10^3/uL (0.0-0.5); EOS % 5.8 % (0.0-3.0); HEMATOCRIT 30.1 % (36.0-47.0); HEMOGLOBIN 9.5 g/dl (12.0-15.5); LYMPH # 1.1 10^3/uL (1.5-5.0); LYMPH % 24.4 % (24.0-44.0); MEAN CORPUSCULAR HEMOGLOBIN 29.1 pg (27.0-33.0); MEAN CORPUSCULAR HGB CONC 31.6 g/dl (32.0-36.5); MONO # 0.4 10^3/uL (0.0-0.8); MONO % 8.1 % (2.0-8.0); NEUTROPHILS # 2.8 10^3/uL (1.5-8.5); NEUTROPHILS % 60.7 % (36.0-66.0); PLATELET COUNT, AUTOMATED 172 10^3/uL (150-450); RED BLOOD COUNT 3.27 10^6/uL (4.00-5.40); WHITE BLOOD COUNT 4.7 10^3/uL (4.0-10.0)
[2024-01-16 13:42] LABS: C REACTIVE PROTEIN QUANTITATIV < 0.40 MG/DL (<1.0)
[2024-01-16 13:45] LABS: ALBUMIN 2.4 G/DL (3.2-5.2); ALKALINE PHOSPHATASE 73 U/L (46-116); ALT/SGPT 13 U/L (7.0-40); AST/SGOT 22 U/L (<34); BILIRUBIN,TOTAL 0.2 MG/DL (0.3-1.2); BLOOD UREA NITROGEN 25 MG/DL (9-23); CALCIUM LEVEL 9.9 MG/DL (8.3-10.6); CARBON DIOXIDE LEVEL 31 MMOL/L (20-31); CHLORIDE LEVEL 100 MMOL/L (98-107); CK-MB VALUE MASS < 1.0 NG/ML (<3.6); CPK CREATINE PHOSPHOKINASE 29 U/L (34-145); CREATININE FOR GFR 1.13 MG/DL (0.55-1.30); GLOMERULAR FILTRATION RATE 49.7 (>39); GLUCOSE, FASTING 113 MG/DL (74-106); MB/CK RELATIVE INDEX 3.44 (< OR =4); POTASSIUM SERUM 4.5 MMOL/L (3.5-5.1); SODIUM LEVEL 135 MMOL/L (136-145); TOTAL PROTEIN 5.7 G/DL (5.7-8.2)
[2024-01-16 13:55] LABS: PROCALCITONIN <0.04 ng/ml
[2024-01-16 13:57] LABS: ABG BASE EXCESS -1.5 (-2.0-2.0); ABG HCO3 23.9 MMOL/L (22.0-26.0); ABG O2 SATURATION 91.4 % (95.0-99.0); ABG PARTIAL PRESSURE CO2 43.1 mmHg (35.0-45.0); ABG PARTIAL PRESSURE O2 65.9 mmHg (75.0-100.0); ABG STANDARD HCO3 23.1 MMOL/L. (22.0-26.0); ABG TOTAL CO2 25.2 MMOL/L (23.0-31.0); ABG pH (ARTERIAL) 7.361 UNITS (7.350-7.450)
[2024-01-16 14:00] VITALS: BP 115/42; TEMP 97.1; O2SAT 96
[2024-01-16 19:41] VITALS: BP 128/50; TEMP 97.3; O2SAT 96
[2024-01-16] MEDS: LEVEMIR (INSULIN DETEMIR) 1 UNITS/0.01ML SC SCH (20:09)
[2024-01-17 05:57] VITALS: BP 138/61; TEMP 97.5; O2SAT 95
[2024-01-17 08:21] VITALS: BP 161/64; TEMP 97.5; O2SAT 99
[2024-01-17 14:30] VITALS: BP 158/54; TEMP 97.7; O2SAT 95
[2024-01-17] MEDS: IBUPROFEN 400MG TAB PO PRN (17:12)
[2024-01-17] MEDS: ALPRAZolam 0.25 MG TAB PO PRN (17:12)
[2024-01-17 20:29] VITALS: BP 166/56; TEMP 97.7; O2SAT 92
[2024-01-18 20:15] VITALS: BP 156/59
[2024-01-19 05:36] VITALS: BP 176/72; TEMP 98.2; O2SAT 95
[2024-01-19 15:29] VITALS: BP 94/58
[2024-01-19 19:21] VITALS: BP 167/58; TEMP 97.7; O2SAT 96
[2024-01-20 10:21] VITALS: BP 163/59
[2024-01-20 14:34] VITALS: BP 126/54; TEMP 97.7; O2SAT 96
[2024-01-21 05:34] VITALS: BP 143/52; TEMP 97.7; O2SAT 97
[2024-01-21 19:57] VITALS: BP 167/57; TEMP 97.9; O2SAT 98
[2024-01-22 06:00] VITALS: BP 112/67; TEMP 97.5; O2SAT 98
[2024-01-22 11:02] VITALS: BP 157/63
[2024-01-22] MEDS: ALPRAZolam 0.5 MG TAB PO PRN (20:21)
[2024-01-23] VITALS (7 sets, daily range): BP systolic 150–210; BP diastolic 50–68; TEMP 97.5–97.7; O2SAT 90–95
[2024-01-23] MEDS: **hydrALAZINE HCL** 25 MG TAB PO ONE (06:55)
[2024-01-23] MEDS ORDERED: cloNIDine HCL 0.1 MG/24 HR PATCH TOP SCH (09:00)
[2024-01-23] MEDS ORDERED: hydrALAZINE 20MG/ML 1ML VIAL IV STA (10:37)
[2024-01-23] MEDS ORDERED: MORPHINE 2 MG/ML 1ML VIAL IV ONE (11:00)
[2024-01-23 11:15] LABS: BASO % 0.5 % (0.0-1.0); EOS # 0.2 10^3/uL (0.0-0.5); EOS % 3.2 % (0.0-3.0); HEMATOCRIT 31.6 % (36.0-47.0); HEMOGLOBIN 10.1 g/dl (12.0-15.5); LYMPH # 0.9 10^3/uL (1.5-5.0); LYMPH % 14.1 % (24.0-44.0); MEAN CORPUSCULAR HEMOGLOBIN 29.3 pg (27.0-33.0); MEAN CORPUSCULAR VOLUME 91.6 fl (80.0-96.0); MONO # 0.5 10^3/uL (0.0-0.8); MONO % 7.5 % (2.0-8.0); NEUTROPHILS # 4.6 10^3/uL (1.5-8.5); NEUTROPHILS % 74.2 % (36.0-66.0); PLATELET COUNT, AUTOMATED 171 10^3/uL (150-450); RED BLOOD COUNT 3.45 10^6/uL (4.00-5.40); WHITE BLOOD COUNT 6.2 10^3/uL (4.0-10.0)
[2024-01-23] MEDS: MORPHINE 2 MG/ML 1ML VIAL IM ONE (11:18)
[2024-01-23 11:48] LABS: BLOOD UREA NITROGEN 19 MG/DL (9-23); CALCIUM LEVEL 9.5 MG/DL (8.3-10.6); CARBON DIOXIDE LEVEL 28 MMOL/L (20-31); CHLORIDE LEVEL 101 MMOL/L (98-107); CREATININE FOR GFR 0.93 MG/DL (0.55-1.30); GLOMERULAR FILTRATION RATE > 60.0 (>39); GLUCOSE, FASTING 175 MG/DL (74-106); MAGNESIUM LEVEL 1.6 MG/DL (1.8-2.4); POTASSIUM SERUM 4.3 MMOL/L (3.5-5.1); SODIUM LEVEL 135 MMOL/L (136-145)
[2024-01-23] MEDS: **hydrALAZINE** 50 MG TAB PO SCH (12:55)
[2024-01-23] MEDS: PERCOCET 5MG/325MG TAB PO PRN (14:53)
[2024-01-23] MEDS ORDERED: **hydrALAZINE** 50 MG TAB PO SCH (16:00)
[2024-01-24] VITALS (10 sets, daily range): BP systolic 148–192; BP diastolic 55–71; TEMP 97.5–97.7; O2SAT 91–92
[2024-01-24] MEDS: cloNIDine 0.1MG TABLET PO PRN (02:58)
[2024-01-24] MEDS: PERCOCET 5MG/325MG TAB PO PRN (08:13)
[2024-01-24 14:22] LABS: ABG BASE EXCESS 2.2 (-2.0-2.0); ABG HCO3 25.8 MMOL/L (22.0-26.0); ABG O2 SATURATION 94.7 % (95.0-99.0); ABG PARTIAL PRESSURE CO2 36.4 mmHg (35.0-45.0); ABG PARTIAL PRESSURE O2 72.8 mmHg (75.0-100.0); ABG STANDARD HCO3 26.4 MMOL/L. (22.0-26.0); ABG pH (ARTERIAL) 7.469 UNITS (7.350-7.450)
[2024-01-24] MEDS ORDERED: PILL CUTTER 1 EACH XX PRN (14:35)
[2024-01-24 15:59] LABS: BASO % 0.5 % (0.0-1.0); EOS # 0.2 10^3/uL (0.0-0.5); EOS % 2.9 % (0.0-3.0); HEMATOCRIT 31.9 % (36.0-47.0); HEMOGLOBIN 10.1 g/dl (12.0-15.5); LYMPH % 13.3 % (24.0-44.0); MEAN CORPUSCULAR HEMOGLOBIN 29.1 pg (27.0-33.0); MEAN CORPUSCULAR HGB CONC 31.7 g/dl (32.0-36.5); MEAN CORPUSCULAR VOLUME 91.9 fl (80.0-96.0); MONO # 0.6 10^3/uL (0.0-0.8); MONO % 7.5 % (2.0-8.0); NEUTROPHILS # 5.5 10^3/uL (1.5-8.5); NEUTROPHILS % 75.3 % (36.0-66.0); PLATELET COUNT, AUTOMATED 212 10^3/uL (150-450); RED BLOOD COUNT 3.47 10^6/uL (4.00-5.40); WHITE BLOOD COUNT 7.4 10^3/uL (4.0-10.0)
[2024-01-24 16:12] LABS: ALBUMIN 2.7 G/DL (3.2-5.2); BILIRUBIN,TOTAL 0.2 MG/DL (0.3-1.2); CALCIUM LEVEL 10.4 MG/DL (8.3-10.6); CREATININE FOR GFR 1.14 MG/DL (0.55-1.30); GLOMERULAR FILTRATION RATE 49.2 (>39); POTASSIUM SERUM 4.6 MMOL/L (3.5-5.1); TOTAL PROTEIN 6.1 G/DL (5.7-8.2)
[2024-01-24 16:16] LABS: PROLACTIN 12.08 NG/ML
[2024-01-24] MEDS: QUEtiapine FUMARATE 25 MG TAB PO PRN (18:02)
[2024-01-24] MEDS: **hydrALAZINE** 50 MG TAB PO SCH (18:03)
[2024-01-24] MEDS: DONEPEZIL 5 MG TAB PO SCH (18:04)
[2024-01-24] MEDS: traZODone 25MG PER 1/2 TABLET PO SCH (20:32)
[2024-01-24] MEDS: RAMELTEON 8 MG TAB (ROZEREM) PO SCH (20:32)
[2024-01-24] MEDS: LEVEMIR (INSULIN DETEMIR) 1 UNITS/0.01ML SC SCH (20:34)
[2024-01-25 06:49] VITALS: BP 143/60; TEMP 98.6; O2SAT 93
[2024-01-25 07:57] VITALS: BP 173/59
[2024-01-25] MEDS: HALOPERIDOL LACTATE 5MG/ML VIAL IM PRN (08:00)
[2024-01-25] MEDS: LORazepam 1 MG TAB PO ONE (08:30)
[2024-01-25 08:47] VITALS: BP 130/45
[2024-01-25 13:32] VITALS: BP 136/40
[2024-01-25 14:54] VITALS: BP 122/42; TEMP 97.9; O2SAT 96
[2024-01-25 17:19] VITALS: BP 124/48; TEMP 97.9; O2SAT 95
[2024-01-26 05:00] VITALS: BP 140/46; TEMP 98.2; O2SAT 94
[2024-01-26] MEDS: LIDOCAINE 5% (LIDODERM) PATCH TD SCH (05:20)
[2024-01-26] MEDS: QUEtiapine FUMARATE 25 MG TAB PO ONE (08:00)
[2024-01-26] MEDS: diphenhydrAMINE 50MG CAP PO ONE (08:30)
[2024-01-27 05:51] VITALS: BP 144/60; TEMP 97.7; O2SAT 94
[2024-01-27 09:00] VITALS: BP 170/56; TEMP 98.1; O2SAT 94
[2024-01-27 10:02] VITALS: BP 170/56; TEMP 98.1; O2SAT 94
[2024-01-27] MEDS: QUEtiapine FUMARATE 25 MG TAB PO PRN (12:00)
[2024-01-27 14:25] VITALS: BP 138/42; TEMP 98.6; O2SAT 94
[2024-01-28 05:58] VITALS: BP 136/84; TEMP 97.6; O2SAT 96
[2024-01-28] MEDS: LORazepam 0.5 MG TAB PO PRN (08:07)
[2024-01-28 17:12] VITALS: BP 152/58
[2024-01-28 19:47] VITALS: BP 156/50; TEMP 97.7; O2SAT 96
[2024-01-28 23:52] VITALS: BP 158/52
[2024-01-29 05:20] VITALS: BP 170/60
[2024-01-29 06:09] VITALS: TEMP 97.7; O2SAT 94
[2024-01-29 08:34] VITALS: BP 139/81
[2024-01-29 12:48] VITALS: BP 148/76
[2024-01-29 17:28] VITALS: BP 151/59
[2024-01-29 19:46] VITALS: BP 122/77; TEMP 97.7; O2SAT 94
[2024-01-30 06:27] VITALS: TEMP 97.9; O2SAT 92
[2024-01-30 10:58] LABS: CK-MB VALUE MASS < 1.0 NG/ML (<3.6)
[2024-01-30 10:59] LABS: CPK CREATINE PHOSPHOKINASE 38 U/L (34-145); MB/CK RELATIVE INDEX 2.63 (< OR =4)
[2024-01-30] MEDS: MAALOX 30 ML SUSP *UDC PO ONE (12:19)
[2024-01-30 18:02] VITALS: BP 140/58
[2024-01-30 20:25] VITALS: BP 175/65; TEMP 98.1; O2SAT 94
[2024-01-31] VITALS: BP 178/62; TEMP 98.1; O2SAT 92
[2024-01-31 05:37] VITALS: BP 204/40; TEMP 97.9; O2SAT 95
[2024-01-31 05:56] VITALS: BP 200/58
[2024-01-31 14:30] VITALS: BP 165/60; TEMP 98.1; O2SAT 96
[2024-01-31 15:00] VITALS: BP 158/50
[2024-01-31 21:13] VITALS: BP 182/55; TEMP 97.9; O2SAT 96
[2024-02-01] VITALS (7 sets, daily range): BP systolic 113–200; BP diastolic 54–63; TEMP 97.3–97.7; O2SAT 93–96
[2024-02-02] VITALS: BP 134/49
[2024-02-02 05:39] VITALS: BP 154/53
[2024-02-02 06:00] VITALS: BP 165/53; TEMP 97.9; O2SAT 96
[2024-02-02] MEDS: VERAPAMIL 40 MG TAB PO SCH (06:00)
[2024-02-02 08:16] LABS: BASO % 0.5 % (0.0-1.0); EOS # 0.2 10^3/uL (0.0-0.5); EOS % 3.8 % (0.0-3.0); HEMATOCRIT 30.9 % (36.0-47.0); HEMOGLOBIN 9.8 g/dl (12.0-15.5); LYMPH # 1.1 10^3/uL (1.5-5.0); LYMPH % 19.3 % (24.0-44.0); MEAN CORPUSCULAR HEMOGLOBIN 28.7 pg (27.0-33.0); MEAN CORPUSCULAR HGB CONC 31.7 g/dl (32.0-36.5); MEAN CORPUSCULAR VOLUME 90.4 fl (80.0-96.0); MONO # 0.5 10^3/uL (0.0-0.8); MONO % 7.9 % (2.0-8.0); PLATELET COUNT, AUTOMATED 211 10^3/uL (150-450); RED BLOOD COUNT 3.42 10^6/uL (4.00-5.40); WHITE BLOOD COUNT 5.8 10^3/uL (4.0-10.0)
[2024-02-02 08:50] LABS: ALBUMIN 2.6 G/DL (3.2-5.2); ALKALINE PHOSPHATASE 59 U/L (46-116); ALT/SGPT 10 U/L (7.0-40); AST/SGOT 13 U/L (<34); BILIRUBIN,TOTAL < 0.2 MG/DL (0.3-1.2); BLOOD UREA NITROGEN 16 MG/DL (9-23); CALCIUM LEVEL 9.9 MG/DL (8.3-10.6); CARBON DIOXIDE LEVEL 31 MMOL/L (20-31); CHLORIDE LEVEL 102 MMOL/L (98-107); CREATININE FOR GFR 1.19 MG/DL (0.55-1.30); GLOMERULAR FILTRATION RATE 46.8 (>39); GLUCOSE, FASTING 107 MG/DL (74-106); MAGNESIUM LEVEL 1.8 MG/DL (1.8-2.4); PHOSPHORUS LEVEL 4.3 MG/DL (2.4-5.1); POTASSIUM SERUM 4.1 MMOL/L (3.5-5.1); SODIUM LEVEL 138 MMOL/L (136-145); TOTAL PROTEIN 5.6 G/DL (5.7-8.2)
[2024-02-02] MEDS ORDERED: VERAPAMIL 120MG SR TAB PO SCH (09:00)
[2024-02-02] MEDS: metFORMIN (GLUCOPHAGE) 500MG TAB PO SCH (17:13)
[2024-02-02 20:38] VITALS: BP 166/62; TEMP 97.5; O2SAT 97
[2024-02-03 05:34] VITALS: BP 175/55; TEMP 97.7; O2SAT 93
[2024-02-03 06:47] VITALS: BP 179/62; TEMP 97.5; O2SAT 94
[2024-02-03 06:57] VITALS: BP 162/60
[2024-02-03 15:03] VITALS: BP 206/76; TEMP 97.9; O2SAT 94
[2024-02-03 15:04] VITALS: BP 165/60
[2024-02-03 21:16] VITALS: BP 158/74; TEMP 97.9; O2SAT 94
[2024-02-04 06:06] VITALS: BP 156/62; TEMP 97.7; O2SAT 96
[2024-02-04 16:00] VITALS: BP 200/64
[2024-02-04] MEDS: LORazepam 0.5 MG TAB PO PRN (16:37)
[2024-02-04 20:00] VITALS: BP 188/64; TEMP 97.7; O2SAT 97
[2024-02-05 06:11] VITALS: BP 182/66; TEMP 97.9; O2SAT 94
[2024-02-05] MEDS: **hydrALAZINE** 50 MG TAB PO SCH (10:17)
[2024-02-05 11:30] VITALS: BP 186/67
[2024-02-05] MEDS: LORazepam 1 MG TAB PO PRN (15:50)
[2024-02-05 20:35] VITALS: BP 161/61; TEMP 97.7; O2SAT 96
[2024-02-06 06:42] VITALS: BP 129/83; TEMP 97.9; O2SAT 97
[2024-02-06 07:16] LABS: BASO % 0.5 % (0.0-1.0); EOS # 0.2 10^3/uL (0.0-0.5); EOS % 3.3 % (0.0-3.0); HEMOGLOBIN 10.1 g/dl (12.0-15.5); LYMPH % 15.5 % (24.0-44.0); MEAN CORPUSCULAR HEMOGLOBIN 28.9 pg (27.0-33.0); MEAN CORPUSCULAR HGB CONC 32.6 g/dl (32.0-36.5); MEAN CORPUSCULAR VOLUME 88.6 fl (80.0-96.0); MONO # 0.7 10^3/uL (0.0-0.8); MONO % 10.5 % (2.0-8.0); NEUTROPHILS # 4.5 10^3/uL (1.5-8.5); PLATELET COUNT, AUTOMATED 172 10^3/uL (150-450); WHITE BLOOD COUNT 6.4 10^3/uL (4.0-10.0)
[2024-02-06 07:52] LABS: ALKALINE PHOSPHATASE 56 U/L (46-116); ALT/SGPT < 9 U/L (7.0-40); AST/SGOT 15 U/L (<34); BILIRUBIN,TOTAL 0.2 MG/DL (0.3-1.2); BLOOD UREA NITROGEN 16 MG/DL (9-23); CALCIUM LEVEL 9.6 MG/DL (8.3-10.6); CARBON DIOXIDE LEVEL 31 MMOL/L (20-31); CHLORIDE LEVEL 102 MMOL/L (98-107); CREATININE FOR GFR 0.96 MG/DL (0.55-1.30); GLUCOSE, FASTING 91 MG/DL (74-106); MAGNESIUM LEVEL 1.7 MG/DL (1.8-2.4); POTASSIUM SERUM 3.8 MMOL/L (3.5-5.1); SODIUM LEVEL 140 MMOL/L (136-145)
[2024-02-06] MEDS: VERAPAMIL 120MG SR TAB PO SCH (08:03)
[2024-02-06 20:22] VITALS: BP 173/73; TEMP 98.1; O2SAT 96
[2024-02-07 05:47] VITALS: BP 152/55; TEMP 97.7; O2SAT 96
[2024-02-07 14:06] VITALS: BP 169/68; TEMP 97.9; O2SAT 98
[2024-02-07] MEDS: LORazepam 0.5 MG TAB PO PRN (15:36)
[2024-02-07] MEDS: traMADol 50 MG TAB PO PRN (16:30)
[2024-02-07 20:13] VITALS: BP 109/79; TEMP 97.9; O2SAT 97
[2024-02-08 05:59] VITALS: BP 191/71; TEMP 97.7; O2SAT 96
[2024-02-08] MEDS: LORazepam 0.5 MG TAB PO ONE (10:22)
[2024-02-08] MEDS: GABAPENTIN 100 MG CAP PO SCH (10:50)
[2024-02-08 12:28] VITALS: BP 141/76
[2024-02-08 21:00] VITALS: BP 153/69; TEMP 97.9; O2SAT 96
[2024-02-08] MEDS: OLANZapine 2.5MG TABLET PO SCH (21:15)
[2024-02-08] MEDS: LORazepam 1 MG TAB PO PRN (21:16)
[2024-02-08 21:28] VITALS: BP 128/72; TEMP 97.7; O2SAT 96
[2024-02-09 01:10] VITALS: BP 139/43
[2024-02-09 01:13] VITALS: BP 136/49
[2024-02-09] MEDS: BREXPIPRAZOLE 0.5MG TABLET (REXULTI) PO SCH (09:00)
[2024-02-09 21:18] VITALS: BP 139/52; TEMP 97.3; O2SAT 96
[2024-02-10 06:00] VITALS: BP 180/66; TEMP 97.9; O2SAT 97
[2024-02-10 07:44] VITALS: TEMP 98.1
[2024-02-10 07:46] VITALS: BP 172/63
[2024-02-10 11:45] VITALS: BP 183/58
[2024-02-10 17:18] VITALS: BP 183/58; TEMP 98.4
[2024-02-10 20:29] VITALS: BP 179/60; TEMP 97.9; O2SAT 96
[2024-02-11 06:00] VITALS: BP 155/55; TEMP 97.7; O2SAT 95
[2024-02-11 07:49] VITALS: BP 157/62; TEMP 97.9; O2SAT 96
[2024-02-11 10:21] VITALS: O2SAT 89; O2SAT 94
[2024-02-11 16:02] VITALS: BP 161/56; TEMP 97.5; O2SAT 96
[2024-02-11 23:15] VITALS: BP 167/58; TEMP 97.9
[2024-02-12 06:00] VITALS: BP 206/72; TEMP 98.1; O2SAT 93
[2024-02-12 07:01] VITALS: BP 193/79
[2024-02-12 17:12] VITALS: BP 186/60
[2024-02-12 21:07] VITALS: BP 156/62; TEMP 97.7; O2SAT 94
[2024-02-13 05:32] VITALS: BP 140/55; TEMP 97.9; O2SAT 93
[2024-02-14 06:00] VITALS: BP 138/35; TEMP 97.3; O2SAT 92
[2024-02-14] MEDS: LORazepam 0.5 MG TAB PO PRN (13:33)
[2024-02-15 06:00] VITALS: BP 150/40; TEMP 97.9; O2SAT 96
[2024-02-15 21:30] VITALS: BP 170/61; TEMP 97.3; O2SAT 93
[2024-02-16 04:00] VITALS: O2SAT 78
[2024-02-16 06:57] VITALS: TEMP 97.3
[2024-02-16 19:47] VITALS: BP 143/77; TEMP 97.3; O2SAT 96
[2024-02-17 06:37] VITALS: BP 158/65; TEMP 97.5; O2SAT 96
[2024-02-17 20:09] VITALS: BP 139/46; TEMP 97.7; O2SAT 95
[2024-02-18 06:38] VITALS: BP 140/45; TEMP 97.7; O2SAT 95
[2024-02-19 06:36] VITALS: BP 180/63; TEMP 97.7; O2SAT 96
[2024-02-19] MEDS: MAALOX 30 ML SUSP *UDC PO PRN (15:50)
[2024-02-19] MEDS ORDERED: LORazepam 2 MG/ML 1ML VIAL IV STA (16:51)
[2024-02-19] MEDS ORDERED: LORazepam 2 MG/ML 1ML VIAL IM STA (16:59)
[2024-02-19] MEDS: LORazepam 0.5 MG TAB PO ONE (17:21)
[2024-02-20 06:00] VITALS: BP 176/49; TEMP 97.9; O2SAT 96
[2024-02-20] MEDS: **hydrALAZINE** 50 MG TAB PO SCH (12:23)
[2024-02-21 07:25] VITALS: BP 149/42
[2024-02-21 12:38] VITALS: BP 162/72
[2024-02-21] MEDS: BREXPIPRAZOLE 2MG TABLET (REXULTI) PO SCH (12:47)
[2024-02-21 16:59] VITALS: BP 136/62
[2024-02-21 21:10] VITALS: BP 152/53; TEMP 97.2; O2SAT 95
[2024-02-22 15:25] LABS: BASO % 0.6 % (0.0-1.0); EOS # 0.2 10^3/uL (0.0-0.5); EOS % 3.2 % (0.0-3.0); HEMATOCRIT 30.5 % (36.0-47.0); LYMPH % 19.5 % (24.0-44.0); MEAN CORPUSCULAR HEMOGLOBIN 29.2 pg (27.0-33.0); MEAN CORPUSCULAR HGB CONC 32.8 g/dl (32.0-36.5); MEAN CORPUSCULAR VOLUME 89.2 fl (80.0-96.0); MONO # 0.5 10^3/uL (0.0-0.8); MONO % 9.5 % (2.0-8.0); NEUTROPHILS # 3.4 10^3/uL (1.5-8.5); PLATELET COUNT, AUTOMATED 206 10^3/uL (150-450); RED BLOOD COUNT 3.42 10^6/uL (4.00-5.40); WHITE BLOOD COUNT 5.1 10^3/uL (4.0-10.0)
[2024-02-22 15:35] LABS: ERYTHROCYTE SEDIMENTATION RATE 42 mm/hr (0-30)
[2024-02-22 15:53] LABS: C REACTIVE PROTEIN QUANTITATIV 0.8 MG/DL (<1.0)
[2024-02-22 15:55] LABS: CALCIUM LEVEL 10.1 MG/DL (8.3-10.6); CREATININE FOR GFR 1.16 MG/DL (0.55-1.30); GLOMERULAR FILTRATION RATE 48.2 (>39); POTASSIUM SERUM 3.9 MMOL/L (3.5-5.1)
[2024-02-22 16:02] LABS: PROCALCITONIN 0.07 ng/ml
[2024-02-22] MEDS ORDERED: CEPHALEXIN 500 MG CAP PO SCH (17:00)
[2024-02-22] MEDS: NS 0.45% 1,000 ML IV SCH (17:04)
[2024-02-22] MEDS: **hydrALAZINE** 50 MG TAB PO SCH (17:15)
[2024-02-22 21:00] VITALS: BP 163/78; TEMP 97.9; O2SAT 95
[2024-02-23 05:55] VITALS: BP 161/64; TEMP 97.7; O2SAT 90
[2024-02-23 10:34] LABS: BASO % 0.6 % (0.0-1.0); EOS # 0.2 10^3/uL (0.0-0.5); EOS % 3.4 % (0.0-3.0); HEMATOCRIT 30.1 % (36.0-47.0); HEMOGLOBIN 9.7 g/dl (12.0-15.5); LYMPH % 19.7 % (24.0-44.0); MEAN CORPUSCULAR HEMOGLOBIN 28.8 pg (27.0-33.0); MEAN CORPUSCULAR HGB CONC 32.2 g/dl (32.0-36.5); MEAN CORPUSCULAR VOLUME 89.3 fl (80.0-96.0); MONO # 0.6 10^3/uL (0.0-0.8); MONO % 10.9 % (2.0-8.0); NEUTROPHILS # 3.4 10^3/uL (1.5-8.5); NEUTROPHILS % 65.2 % (36.0-66.0); PLATELET COUNT, AUTOMATED 177 10^3/uL (150-450); RED BLOOD COUNT 3.37 10^6/uL (4.00-5.40); WHITE BLOOD COUNT 5.2 10^3/uL (4.0-10.0)
[2024-02-23 10:47] LABS: CALCIUM LEVEL 9.7 MG/DL (8.3-10.6); CREATININE FOR GFR 1.08 MG/DL (0.55-1.30); GLOMERULAR FILTRATION RATE 52.4 (>39); POTASSIUM SERUM 3.6 MMOL/L (3.5-5.1)
[2024-02-23 15:25] VITALS: BP 140/57; TEMP 98.6; O2SAT 96
[2024-02-23 20:38] VITALS: BP 175/91; TEMP 97.9; O2SAT 97
[2024-02-24 05:44] VITALS: BP 192/70; TEMP 97.9; O2SAT 96
[2024-02-24 20:16] VITALS: BP 198/67; TEMP 97.9; O2SAT 96
[2024-02-25 06:16] VITALS: BP 204/78; TEMP 97.7; O2SAT 97
[2024-02-25 06:32] VITALS: BP 184/60
[2024-02-25 16:06] VITALS: BP 183/61
[2024-02-25 18:15] VITALS: BP 156/69
[2024-02-25 18:42] VITALS: BP 173/68
[2024-02-25 20:34] VITALS: BP 145/67; TEMP 98.1; O2SAT 90
[2024-02-26] VITALS (7 sets, daily range): BP systolic 125–218; BP diastolic 45–89; TEMP 97.7–98.5; O2SAT 92–99
[2024-02-26 08:17] LABS: ABG BASE EXCESS 1.5 (-2.0-2.0); ABG O2 SATURATION 96.5 % (95.0-99.0); ABG PARTIAL PRESSURE CO2 40.5 mmHg (35.0-45.0); ABG PARTIAL PRESSURE O2 87.3 mmHg (75.0-100.0); ABG STANDARD HCO3 25.8 MMOL/L. (22.0-26.0); ABG TOTAL CO2 27.2 MMOL/L (23.0-31.0); ABG pH (ARTERIAL) 7.425 UNITS (7.350-7.450)
[2024-02-26 08:52] LABS: CALCIUM LEVEL 9.8 MG/DL (8.3-10.6); GLOMERULAR FILTRATION RATE 57.2 (>39); POTASSIUM SERUM 3.3 MMOL/L (3.5-5.1)
[2024-02-26] MEDS: cloNIDine 0.1MG TABLET PO ONE (11:31)
[2024-02-26] MEDS: NITROGLYCERIN 2% OINT 1 GM *U/D* PKT TOP ONE (11:32)
[2024-02-26] MEDS: FUROSEMIDE 40MG/4ML VIAL IV ONE (11:32)
[2024-02-26] MEDS ORDERED: ESCITALOPRAM OXALATE 10 MG TAB (LEXAPRO) PO ONE (11:40)
[2024-02-26 11:42] LABS: BASO % 0.5 % (0.0-1.0); EOS # 0.2 10^3/uL (0.0-0.5); EOS % 3.2 % (0.0-3.0); HEMATOCRIT 33.8 % (36.0-47.0); HEMOGLOBIN 10.9 g/dl (12.0-15.5); LYMPH # 0.8 10^3/uL (1.5-5.0); LYMPH % 12.1 % (24.0-44.0); MEAN CORPUSCULAR HGB CONC 32.2 g/dl (32.0-36.5); MEAN CORPUSCULAR VOLUME 89.9 fl (80.0-96.0); MONO # 0.6 10^3/uL (0.0-0.8); MONO % 8.3 % (2.0-8.0); NEUTROPHILS % 75.4 % (36.0-66.0); PLATELET COUNT, AUTOMATED 192 10^3/uL (150-450); RED BLOOD COUNT 3.76 10^6/uL (4.00-5.40); WHITE BLOOD COUNT 6.6 10^3/uL (4.0-10.0)
[2024-02-26] MEDS: KCL 10MEQ/100ML SWI (KRUN) 10 MEQ in IV 1 EA IV SCH (11:45)
[2024-02-26 11:46] LABS: ERYTHROCYTE SEDIMENTATION RATE 85 mm/hr (0-30)
[2024-02-26 12:04] LABS: CK-MB VALUE MASS < 1.0 NG/ML (<3.6)
[2024-02-26 12:08] LABS: CPK CREATINE PHOSPHOKINASE 47 U/L (34-145); MB/CK RELATIVE INDEX 2.12 (< OR =4)
[2024-02-26 12:39] LABS: ALBUMIN 2.9 G/DL (3.2-5.2); BILIRUBIN,TOTAL 0.3 MG/DL (0.3-1.2); C REACTIVE PROTEIN QUANTITATIV 4.2 MG/DL (<1.0); CALCIUM LEVEL 9.8 MG/DL (8.3-10.6); CREATININE FOR GFR 0.99 MG/DL (0.55-1.30); GLOMERULAR FILTRATION RATE 57.9 (>39); POTASSIUM SERUM 3.5 MMOL/L (3.5-5.1); PROCALCITONIN 0.08 ng/ml; TOTAL PROTEIN 6.3 G/DL (5.7-8.2)
[2024-02-26] MEDS: ASPIRIN 81MG CHEW TABLET PO ONE (13:03)
[2024-02-26] MEDS: PANTOPRAZOLE 40MG TAB (PROTONIX) PO ONE (13:03)
[2024-02-26] MEDS: CitaloPRAM (CeleXA) 20 MG TAB PO SCH (13:03)
[2024-02-26] MEDS: LEVOTHYROXINE 100MCG TABLET (0.1MG) PO ONE (13:04)
[2024-02-26] MEDS: ATORVASTATIN 20 MG TAB PO ONE (13:04)
[2024-02-26] MEDS: VERAPAMIL 120MG SR TAB PO ONE (13:05)
[2024-02-26] MEDS: DONEPEZIL 5 MG TAB PO ONE (13:05)
[2024-02-26] MEDS: SUCRALFATE SUSP 1GM/10ML UD PO SCH (13:06)
[2024-02-26] MEDS: OLANZapine INTRAMUSCULAR 10MG VIAL IM ONE (18:47)
[2024-02-26] MEDS: HALOPERIDOL LACTATE 5MG/ML VIAL IM ONE (18:47)
[2024-02-26] MEDS: diphenhydrAMINE 50MG/ML VIAL IM STA (18:47)
[2024-02-26] MEDS: PANTOPRAZOLE 40MG TAB (PROTONIX) PO SCH (21:40)
[2024-02-27 05:50] VITALS: BP 173/62; TEMP 98.2; O2SAT 91
[2024-02-27] MEDS: LEVOTHYROXINE 100MCG TABLET (0.1MG) PO SCH (06:22)
[2024-02-27] MEDS: VERAPAMIL 120MG SR TAB PO SCH (08:20)
[2024-02-27] MEDS: DONEPEZIL 5 MG TAB PO SCH (08:20)
[2024-02-27] MEDS ORDERED: ESCITALOPRAM OXALATE 10 MG TAB (LEXAPRO) PO SCH (09:00)
[2024-02-27] MEDS: **hydrALAZINE** 50 MG TAB PO SCH ×2 (09:17→17:27)
[2024-02-27 10:15] VITALS: BP 119/55
[2024-02-27] MEDS: LORazepam 2 MG/ML 1ML VIAL IV STA (10:27)
[2024-02-27] MEDS: diphenhydrAMINE 50MG/ML VIAL IV STA (10:28)
[2024-02-27] MEDS: PROMETHAZINE 25MG/ML 1ML VIAL IV ONE (10:31)
[2024-02-27] MEDS: ONDANSETRON 4MG ORAL DISINTEGRATING TAB PO ONE (10:34)
[2024-02-27] MEDS: cloNIDine 0.1MG TABLET PO ONE ×2 (10:34→14:26)
[2024-02-27 13:09] LABS: BASO % 0.5 % (0.0-1.0); EOS # 0.1 10^3/uL (0.0-0.5); EOS % 2.1 % (0.0-3.0); HEMATOCRIT 31.5 % (36.0-47.0); HEMOGLOBIN 10.3 g/dl (12.0-15.5); LYMPH # 0.9 10^3/uL (1.5-5.0); LYMPH % 16.2 % (24.0-44.0); MEAN CORPUSCULAR HEMOGLOBIN 28.6 pg (27.0-33.0); MEAN CORPUSCULAR HGB CONC 32.7 g/dl (32.0-36.5); MEAN CORPUSCULAR VOLUME 87.5 fl (80.0-96.0); MONO # 0.5 10^3/uL (0.0-0.8); MONO % 8.5 % (2.0-8.0); NEUTROPHILS # 4.1 10^3/uL (1.5-8.5); NEUTROPHILS % 72.5 % (36.0-66.0); PLATELET COUNT, AUTOMATED 198 10^3/uL (150-450); WHITE BLOOD COUNT 5.6 10^3/uL (4.0-10.0)
[2024-02-27 13:18] LABS: ERYTHROCYTE SEDIMENTATION RATE 72 mm/hr (0-30)
[2024-02-27 13:55] LABS: BILIRUBIN,TOTAL 0.3 MG/DL (0.3-1.2); C REACTIVE PROTEIN QUANTITATIV 3.2 MG/DL (<1.0); CALCIUM LEVEL 9.4 MG/DL (8.3-10.6); CREATININE FOR GFR 1.11 MG/DL (0.55-1.30); GLOMERULAR FILTRATION RATE 50.7 (>39); POTASSIUM SERUM 3.2 MMOL/L (3.5-5.1); TOTAL PROTEIN 6.4 G/DL (5.7-8.2)
[2024-02-27 14:14] LABS: PROCALCITONIN 0.09 ng/ml
[2024-02-27 14:17] VITALS: BP 171/62; TEMP 97.9; O2SAT 94
[2024-02-27 15:26] VITALS: BP 155/55
[2024-02-27] MEDS: POTASSIUM CHLORIDE 10MEQ SR TABLET PO ONE (15:48)
[2024-02-27 18:10] VITALS: BP 144/57
[2024-02-27 20:27] VITALS: BP 141/52; TEMP 97.9; O2SAT 93
[2024-02-28 00:08] VITALS: BP 140/50
[2024-02-28 04:19] VITALS: BP 142/49; TEMP 97.5; O2SAT 93
[2024-02-28 14:00] VITALS: BP 161/50; TEMP 97.9; O2SAT 89
[2024-02-28 20:03] VITALS: BP 100/59; TEMP 97.7; O2SAT 94
[2024-02-28 20:14] VITALS: BP 181/64
[2024-02-29] MEDS: traZODone 25MG PER 1/2 TABLET PO SCH (00:36)
[2024-02-29] MEDS: RAMELTEON 8 MG TAB (ROZEREM) PO PRN (01:59)
[2024-02-29 05:30] VITALS: BP 169/55; TEMP 97.9; O2SAT 92
[2024-02-29 14:00] VITALS: BP 180/65; TEMP 97.7; O2SAT 94
[2024-02-29] MEDS: QUEtiapine FUMARATE 25 MG TAB PO ONE (14:58)
[2024-02-29] MEDS: amLODIPine 5 MG TAB PO ONE (14:58)
[2024-02-29] MEDS: **hydrALAZINE** 50 MG TAB PO SCH (17:12)
[2024-02-29 17:45] VITALS: BP 188/62
[2024-02-29 20:10] VITALS: BP 114/94; TEMP 98.4; O2SAT 96
[2024-03-01 00:08] VITALS: BP 128/59
[2024-03-01 04:25] VITALS: BP 154/58; TEMP 97.5; O2SAT 95
[2024-03-01 14:00] VITALS: BP 177/60; TEMP 97.7; O2SAT 97
[2024-03-01] MEDS: LORazepam 0.5 MG TAB PO PRN (14:57)
[2024-03-01] MEDS ORDERED: QUEtiapine FUMARATE 50MG TAB PO SCH (15:00)
[2024-03-01] MEDS: traZODone 50 MG TAB PO SCH (16:34)
[2024-03-01 20:20] VITALS: BP 148/61
[2024-03-02 06:00] VITALS: BP 172/67; TEMP 97.3; O2SAT 93
[2024-03-02] MEDS: ACETAMINOPHEN TAB 650MG DOSE (2X325MG) PO PRN (08:38)
[2024-03-02 14:00] VITALS: BP 160/57; TEMP 97.7; O2SAT 93
[2024-03-02 20:24] VITALS: BP 182/40; TEMP 97.5; O2SAT 94
[2024-03-02 23:49] VITALS: BP 186/60
[2024-03-03 03:00] VITALS: BP 184/60
[2024-03-03 04:24] VITALS: BP 184/38; TEMP 97.5; O2SAT 94
[2024-03-03 07:35] LABS: BASO % 0.6 % (0.0-1.0); EOS # 0.2 10^3/uL (0.0-0.5); EOS % 3.8 % (0.0-3.0); HEMATOCRIT 35.8 % (36.0-47.0); HEMOGLOBIN 11.4 g/dl (12.0-15.5); LYMPH # 1.1 10^3/uL (1.5-5.0); LYMPH % 17.5 % (24.0-44.0); MEAN CORPUSCULAR HEMOGLOBIN 27.9 pg (27.0-33.0); MEAN CORPUSCULAR HGB CONC 31.8 g/dl (32.0-36.5); MEAN CORPUSCULAR VOLUME 87.7 fl (80.0-96.0); MONO # 0.5 10^3/uL (0.0-0.8); MONO % 7.2 % (2.0-8.0); NEUTROPHILS # 4.5 10^3/uL (1.5-8.5); NEUTROPHILS % 70.3 % (36.0-66.0); PLATELET COUNT, AUTOMATED 216 10^3/uL (150-450); RED BLOOD COUNT 4.08 10^6/uL (4.00-5.40); WHITE BLOOD COUNT 6.4 10^3/uL (4.0-10.0)
[2024-03-03 08:17] LABS: BLOOD UREA NITROGEN 14 MG/DL (9-23); CALCIUM LEVEL 9.7 MG/DL (8.3-10.6); CARBON DIOXIDE LEVEL 25 MMOL/L (20-31); CHLORIDE LEVEL 105 MMOL/L (98-107); CREATININE FOR GFR 0.92 MG/DL (0.55-1.30); GLOMERULAR FILTRATION RATE > 60.0 (>39); GLUCOSE, FASTING 109 MG/DL (74-106); POTASSIUM SERUM 2.9 MMOL/L (3.5-5.1); SODIUM LEVEL 141 MMOL/L (136-145)
[2024-03-03] MEDS: LOSARTAN 50MG TABLET PO SCH (09:06)
[2024-03-03] MEDS: OLANZapine 2.5MG TABLET PO SCH (11:54)
[2024-03-03] MEDS: BREXPIPRAZOLE 0.5MG TABLET (REXULTI) PO SCH (11:55)
[2024-03-03] MEDS: POTASSIUM CHLORIDE 10MEQ SR TABLET PO ONE (11:55)
[2024-03-03 14:00] VITALS: BP 158/77; TEMP 97.7; O2SAT 100
[2024-03-03] MEDS: traZODone 25MG PER 1/2 TABLET PO SCH (15:05)
[2024-03-03 19:29] VITALS: BP 161/71; TEMP 98.4; O2SAT 95
[2024-03-03] MEDS: ALBUTEROL SULFATE 2.5MG/0.5ML INH NEB SOLN NEB PRN (19:35)
[2024-03-03 23:30] VITALS: BP 127/46; TEMP 98.1; O2SAT 93
[2024-03-04 06:10] VITALS: O2SAT 96
[2024-03-04 06:11] VITALS: BP 180/60; TEMP 97; O2SAT 97
[2024-03-04] MEDS: POTASSIUM CHLORIDE 10MEQ SR TABLET PO SCH (08:31)
[2024-03-04 14:00] VITALS: BP 104/57; TEMP 97.6; O2SAT 98
[2024-03-04 18:08] VITALS: O2SAT 98
[2024-03-04 22:00] VITALS: BP 144/77; TEMP 98.1; O2SAT 99
[2024-03-05 06:00] VITALS: BP 160/61; TEMP 97.9; O2SAT 94
[2024-03-05 14:00] VITALS: BP 140/40; TEMP 97.5; O2SAT 98
[2024-03-05 20:00] VITALS: BP 173/59; TEMP 97.7; O2SAT 95
[2024-03-06 06:00] VITALS: BP 160/60; TEMP 97.7; O2SAT 97
[2024-03-06 11:45] VITALS: BP 185/65
[2024-03-06 14:00] VITALS: BP 150/57; TEMP 97.9; O2SAT 96
[2024-03-06 20:00] VITALS: BP 164/62; TEMP 97.7; O2SAT 93
[2024-03-07 06:00] VITALS: BP 183/60; TEMP 97.9; O2SAT 95
[2024-03-07 08:38] LABS: HEMOGLOBIN 10.2 g/dl (12.0-15.5); MEAN CORPUSCULAR HEMOGLOBIN 28.3 pg (27.0-33.0); MEAN CORPUSCULAR HGB CONC 32.9 g/dl (32.0-36.5); MEAN CORPUSCULAR VOLUME 86.1 fl (80.0-96.0); PLATELET COUNT, AUTOMATED 193 10^3/uL (150-450); WHITE BLOOD COUNT 4.6 10^3/uL (4.0-10.0)
[2024-03-07 09:02] LABS: ALBUMIN 2.9 G/DL (3.2-5.2); BILIRUBIN,TOTAL 0.2 MG/DL (0.3-1.2); CALCIUM LEVEL 9.8 MG/DL (8.3-10.6); CREATININE FOR GFR 1.01 MG/DL (0.55-1.30); GLOMERULAR FILTRATION RATE 56.6 (>39); POTASSIUM SERUM 3.7 MMOL/L (3.5-5.1); TOTAL PROTEIN 6.1 G/DL (5.7-8.2)
[2024-03-07 13:30] VITALS: BP 162/58; O2SAT 99
[2024-03-07 20:00] VITALS: BP 170/66; TEMP 97.7; O2SAT 94
[2024-03-07] MEDS: LOSARTAN 50MG TABLET PO SCH (21:43)
[2024-03-08 05:44] VITALS: BP 153/54; TEMP 97.9; O2SAT 95
[2024-03-08 14:00] VITALS: BP 150/49; TEMP 97.5; O2SAT 91
[2024-03-08 22:00] VITALS: BP 130/47; TEMP 97.9; O2SAT 94
[2024-03-09 06:00] VITALS: BP 138/46; TEMP 97.5; O2SAT 94
[2024-03-09 14:00] VITALS: BP 139/49; TEMP 97.9; O2SAT 97
[2024-03-09 22:00] VITALS: BP 133/45; TEMP 98.1; O2SAT 100
[2024-03-10 06:00] VITALS: BP 153/79; TEMP 98.2; O2SAT 96
[2024-03-10 14:00] VITALS: BP 170/64; TEMP 97.9; O2SAT 96
[2024-03-10 20:00] VITALS: BP 126/50; TEMP 97.9; O2SAT 93
[2024-03-11 06:00] VITALS: BP 182/68; TEMP 97.5; O2SAT 93
[2024-03-11 15:34] VITALS: BP 181/59; TEMP 97.7; O2SAT 96
[2024-03-11 16:00] VITALS: BP 164/60
[2024-03-11 20:00] VITALS: BP 159/52; TEMP 98.4; O2SAT 93
[2024-03-12 00:37] VITALS: BP 134/46
[2024-03-12 04:00] VITALS: BP 135/46; TEMP 97.7; O2SAT 94
[2024-03-12 06:50] LABS: CALCIUM LEVEL 9.7 MG/DL (8.3-10.6); CREATININE FOR GFR 1.22 MG/DL (0.55-1.30); GLOMERULAR FILTRATION RATE 45.5 (>39); POTASSIUM SERUM 4.5 MMOL/L (3.5-5.1)
[2024-03-12 12:40] VITALS: BP 134/50; TEMP 98.2; O2SAT 95
[2024-03-12 19:40] VITALS: BP 168/58; TEMP 98.6; O2SAT 100
[2024-03-13 04:00] VITALS: BP 143/56; TEMP 97.5; O2SAT 94
[2024-03-13 06:18] VITALS: BP 143/55
[2024-03-13 11:55] VITALS: BP 114/55; TEMP 98.1; O2SAT 94
[2024-03-13 20:06] VITALS: BP 159/57; TEMP 97.9; O2SAT 95
[2024-03-14 04:14] VITALS: BP 169/56; TEMP 97.9; O2SAT 98
[2024-03-14 12:00] VITALS: BP 162/65; TEMP 98.2; O2SAT 97
[2024-03-14 20:00] VITALS: BP_SYST 154; BP_SYST 161; BP_DIAS 107; BP_DIAS 52; TEMP 97.7; O2SAT 96
[2024-03-15 03:53] VITALS: BP 143/56; TEMP 98.2; O2SAT 92
[2024-03-15 14:54] VITALS: BP 133/94; TEMP 98.1; O2SAT 95
[2024-03-15 20:00] VITALS: BP 155/50; TEMP 97.3; O2SAT 93
[2024-03-16 04:00] VITALS: BP 144/47; TEMP 98.2; O2SAT 93
[2024-03-16 12:00] VITALS: BP 167/62; TEMP 97.5; O2SAT 94
[2024-03-16 20:00] VITALS: BP 137/54; TEMP 97.5; O2SAT 92
[2024-03-17 04:00] VITALS: BP 148/65; TEMP 97.9; O2SAT 90
[2024-03-17 12:00] VITALS: BP 152/65; TEMP 97.7; O2SAT 93
[2024-03-17 20:00] VITALS: BP 136/48; TEMP 97.4; O2SAT 94
[2024-03-18 04:07] VITALS: BP_SYST 147; BP_SYST 157; BP_DIAS 51; BP_DIAS 94; TEMP 97.7; O2SAT 92
[2024-03-18 12:00] VITALS: BP 184/66; TEMP 97.7; O2SAT 96
[2024-03-18 20:12] VITALS: BP 164/62; TEMP 97.7; O2SAT 97
[2024-03-19 05:52] VITALS: BP 140/62; TEMP 97.3; O2SAT 96
[2024-03-19 14:00] VITALS: BP 186/69; TEMP 97.7; O2SAT 98
[2024-03-19 20:00] VITALS: BP 113/34; TEMP 98.1; O2SAT 94
[2024-03-19 20:06] VITALS: BP 120/30; TEMP 97.7; O2SAT 97
[2024-03-20 04:00] VITALS: BP 127/49; TEMP 97.7; O2SAT 93
[2024-03-20 14:37] VITALS: BP 141/52; TEMP 97.5; O2SAT 94
[2024-03-20 22:37] VITALS: BP 165/64; TEMP 97.5; O2SAT 97
[2024-03-21 05:47] VITALS: BP 164/65; TEMP 97.5; O2SAT 92
[2024-03-21 12:00] VITALS: BP 120/40; TEMP 97.9; O2SAT 100
[2024-03-21 12:50] LABS: BASO % 0.7 % (0.0-1.0); EOS # 0.2 10^3/uL (0.0-0.5); EOS % 3.5 % (0.0-3.0); HEMATOCRIT 31.2 % (36.0-47.0); HEMOGLOBIN 10.2 g/dl (12.0-15.5); LYMPH % 21.4 % (24.0-44.0); MEAN CORPUSCULAR HEMOGLOBIN 28.3 pg (27.0-33.0); MEAN CORPUSCULAR HGB CONC 32.7 g/dl (32.0-36.5); MEAN CORPUSCULAR VOLUME 86.7 fl (80.0-96.0); MONO # 0.4 10^3/uL (0.0-0.8); MONO % 8.6 % (2.0-8.0); NEUTROPHILS % 65.4 % (36.0-66.0); PLATELET COUNT, AUTOMATED 169 10^3/uL (150-450); WHITE BLOOD COUNT 4.5 10^3/uL (4.0-10.0)
[2024-03-21 13:27] LABS: CALCIUM LEVEL 10.9 MG/DL (8.3-10.6); CREATININE FOR GFR 1.1 MG/DL (0.55-1.30); GLOMERULAR FILTRATION RATE 51.3 (>39); POTASSIUM SERUM 4.9 MMOL/L (3.5-5.1)
[2024-03-22 04:30] VITALS: BP 149/55; TEMP 97.3; O2SAT 92
[2024-03-22 05:26] VITALS: BP 142/60
[2024-03-22] MEDS ORDERED: BREXPIPRAZOLE 0.5MG TABLET (REXULTI) PO SCH (09:00)
[2024-03-22] MEDS: BREXPIPRAZOLE 2MG TABLET (REXULTI) PO SCH (11:17)
[2024-03-22] MEDS: POTASSIUM CHLORIDE 10MEQ SR TABLET PO SCH (11:17)
[2024-03-22 20:06] VITALS: BP 139/45
[2024-03-23] VITALS: BP 124/49
[2024-03-23 06:14] VITALS: BP 152/43; TEMP 97.7; O2SAT 96
[2024-03-23] MEDS: LORazepam 0.5 MG TAB PO PRN (15:03)
[2024-03-23 20:00] VITALS: BP 132/42; TEMP 98.4; O2SAT 94
[2024-03-24 05:11] VITALS: BP 105/56; TEMP 97.7; O2SAT 95
[2024-03-25 03:50] VITALS: BP 158/48; TEMP 97.7; O2SAT 93
[2024-03-26 03:20] VITALS: BP 140/48; TEMP 97.7; O2SAT 96
[2024-03-27 04:40] VITALS: BP 135/46; TEMP 97.5; O2SAT 94
[2024-03-27 18:39] VITALS: BP 146/58; TEMP 97.7; O2SAT 96
[2024-03-27 20:00] VITALS: BP 128/64; TEMP 97.5; O2SAT 97
[2024-03-28 04:00] VITALS: BP 131/55; TEMP 97.7; O2SAT 96
[2024-03-29 04:44] VITALS: BP 161/50; TEMP 97; O2SAT 95
[2024-03-30 04:13] VITALS: BP 142/57; TEMP 97.6; O2SAT 96
[2024-04-01 00:17] VITALS: BP 117/62; TEMP 97.5; O2SAT 96
[2024-04-01 14:30] VITALS: BP 134/45; TEMP 97.7
[2024-04-02 05:16] VITALS: BP 117/57; TEMP 97.9
[2024-04-02 20:46] VITALS: TEMP 97.5; O2SAT 92
[2024-04-03 04:17] VITALS: BP 123/45; TEMP 97.5; O2SAT 97
[2024-04-04 04:03] VITALS: BP 115/47; TEMP 97.7; O2SAT 95
[2024-04-04 12:31] VITALS: BP 138/48; TEMP 97.7; O2SAT 95
[2024-04-05 04:12] VITALS: BP 143/55; TEMP 97.5; O2SAT 92
[2024-04-05 05:54] VITALS: BP 121/69
[2024-04-06 03:38] VITALS: BP 143/53; TEMP 97.5; O2SAT 93
[2024-04-07 04:00] VITALS: BP 146/93; TEMP 97.5; O2SAT 91
[2024-04-08 04:14] VITALS: BP 113/63; TEMP 97.5; O2SAT 98
[2024-04-09 04:29] VITALS: BP 136/51; TEMP 97.7; O2SAT 92
[2024-04-09] MEDS ORDERED: MIRALAX *UNIT DOSE* 17GM PACKET PO PRN (19:00)
[2024-04-09 20:00] VITALS: BP 108/36; TEMP 97.3; O2SAT 94
[2024-04-09] MEDS: SENNA 8.6 MG TAB (SENOKOT) PO SCH (21:00)
[2024-04-09] MEDS: DOCUSATE SODIUM 100MG CAPSULE PO SCH (21:00)
[2024-04-10 04:00] VITALS: BP 135/47; TEMP 97.3; O2SAT 92
[2024-04-11 04:00] VITALS: BP 112/42; TEMP 97.5; O2SAT 94
[2024-04-12] MEDS: HALOPERIDOL LACTATE 5MG/ML VIAL IM PRN (00:31)
[2024-04-12 04:35] VITALS: BP 134/39; TEMP 96.8; O2SAT 96
[2024-04-13 04:34] VITALS: BP 127/49; TEMP 97.5; O2SAT 96
[2024-04-13 18:41] VITALS: BP 108/56; TEMP 99.6; O2SAT 97
[2024-04-13 19:08] LABS: BASO % 0.5 % (0.0-1.0); EOS # 0.2 10^3/uL (0.0-0.5); EOS % 2.2 % (0.0-3.0); HEMATOCRIT 30.1 % (36.0-47.0); HEMOGLOBIN 9.8 g/dl (12.0-15.5); LYMPH # 1.3 10^3/uL (1.5-5.0); MEAN CORPUSCULAR HEMOGLOBIN 28.6 pg (27.0-33.0); MEAN CORPUSCULAR HGB CONC 32.6 g/dl (32.0-36.5); MEAN CORPUSCULAR VOLUME 87.8 fl (80.0-96.0); MONO # 0.6 10^3/uL (0.0-0.8); MONO % 7.2 % (2.0-8.0); NEUTROPHILS # 5.8 10^3/uL (1.5-8.5); NEUTROPHILS % 73.3 % (36.0-66.0); PLATELET COUNT, AUTOMATED 204 10^3/uL (150-450); RED BLOOD COUNT 3.43 10^6/uL (4.00-5.40); WHITE BLOOD COUNT 7.9 10^3/uL (4.0-10.0)
[2024-04-13 19:23] LABS: INR 1.25; PARTIAL THROMBOPLASTIN TIME 28.6 SECONDS (24.8-34.2); PROTHROMBIN TIME 15.3 SECONDS (12.5-14.5)
[2024-04-13 19:24] LABS: ALBUMIN 2.9 G/DL (3.2-5.2); BILIRUBIN,TOTAL 0.2 MG/DL (0.3-1.2); CALCIUM LEVEL 10.2 MG/DL (8.3-10.6); CK-MB VALUE MASS 1.5 NG/ML (<3.6); CREATININE FOR GFR 1.55 MG/DL (0.55-1.30); GLOMERULAR FILTRATION RATE 34.5 (>39); MAGNESIUM LEVEL 1.4 MG/DL (1.8-2.4); MB/CK RELATIVE INDEX 2.41 (< OR =4); POTASSIUM SERUM 4.3 MMOL/L (3.5-5.1); TOTAL PROTEIN 5.8 G/DL (5.7-8.2)
[2024-04-13 19:28] LABS: THYROID STIMULATING HORMONE 1.782 uIU/ML (0.55-4.78)
[2024-04-13 20:30] VITALS: BP 138/46; TEMP 97.5; O2SAT 96
[2024-04-13] MEDS: NS 1,000 ML IV ONE (21:04)
[2024-04-13] MEDS: cefTRIAXone SOD 1 GM in D5W MINI-BAG PLUS 50 ML IV SCH (21:05)
[2024-04-13] MEDS: MAGNESIUM OXIDE 400MG TAB (MAG-OX) PO ONE (21:12)
[2024-04-13] MEDS: NS 1,000 ML IV SCH (23:13)
[2024-04-13] MEDS: MAG SULF 1GM/100ML (MAG RUN) 1 GM in IV 1 EA IV ONE (23:13)
[2024-04-14 04:29] VITALS: BP 96/83; TEMP 97.7; O2SAT 97
[2024-04-14 06:27] VITALS: BP 104/37
[2024-04-14 07:56] LABS: CREATININE FOR GFR 1.42 MG/DL (0.55-1.30); GLOMERULAR FILTRATION RATE 38.2 (>39)
[2024-04-14] MEDS: MAGNESIUM OXIDE 400MG TAB (MAG-OX) PO SCH (08:08)
[2024-04-14] MEDS: CEFDINIR 300 MG CAP (OMNICEF) PO SCH (08:09)
[2024-04-14] MEDS ORDERED: BACTRIM 160MG/800MG DS TAB PO SCH (09:00)
[2024-04-14] MEDS ORDERED: SUCRALFATE SUSP 1GM/10ML UD PO SCH (09:00)
[2024-04-14] MEDS: SUCRALFATE SUSP 1GM/10ML UD PO SCH (20:57)
[2024-04-15 00:10] VITALS: BP 160/58
[2024-04-15 04:30] VITALS: BP 148/49; TEMP 97.7; O2SAT 96
[2024-04-15 06:18] LABS: CALCIUM LEVEL 10.4 MG/DL (8.3-10.6); CREATININE FOR GFR 1.21 MG/DL (0.55-1.30); GLOMERULAR FILTRATION RATE 45.9 (>39); MAGNESIUM LEVEL 1.7 MG/DL (1.8-2.4); POTASSIUM SERUM 4.1 MMOL/L (3.5-5.1)
[2024-04-15] MEDS: OLANZapine 2.5MG TABLET PO SCH (21:24)
[2024-04-16 06:27] VITALS: BP 178/59; TEMP 97.8; O2SAT 94
[2024-04-16] MEDS: LOSARTAN 50MG TABLET PO SCH (09:35)
[2024-04-16] MEDS: LORazepam 0.5 MG TAB PO PRN (15:30)
[2024-04-16] MEDS: LevoFLOXacin 250 MG TABLET PO SCH (15:33)
[2024-04-17 04:50] VITALS: BP 158/50; TEMP 97.5; O2SAT 96
[2024-04-17 07:50] LABS: CALCIUM LEVEL 10.4 MG/DL (8.3-10.6); CREATININE FOR GFR 1.09 MG/DL (0.55-1.30); GLOMERULAR FILTRATION RATE 51.8 (>39); MAGNESIUM LEVEL 1.6 MG/DL (1.8-2.4); POTASSIUM SERUM 3.8 MMOL/L (3.5-5.1)
[2024-04-17] MEDS: MAGNESIUM OXIDE 400MG TAB (MAG-OX) PO SCH (16:56)
[2024-04-18 04:56] VITALS: BP 171/50; TEMP 97.7; O2SAT 96
[2024-04-19 04:55] VITALS: BP 138/40; TEMP 96.8; O2SAT 96
[2024-04-19 15:20] VITALS: BP 126/40; O2SAT 89
[2024-04-19 15:52] LABS: ABG BASE EXCESS 0.7 (-2.0-2.0); ABG HCO3 24.5 MMOL/L (22.0-26.0); ABG O2 SATURATION 91.6 % (95.0-99.0); ABG PARTIAL PRESSURE O2 60.3 mmHg (75.0-100.0); ABG TOTAL CO2 25.6 MMOL/L (23.0-31.0)
[2024-04-19 16:37] LABS: BASO % 0.4 % (0.0-1.0); EOS # 0.2 10^3/uL (0.0-0.5); EOS % 2.9 % (0.0-3.0); HEMATOCRIT 31.1 % (36.0-47.0); HEMOGLOBIN 10.2 g/dl (12.0-15.5); LYMPH # 1.2 10^3/uL (1.5-5.0); LYMPH % 15.3 % (24.0-44.0); MEAN CORPUSCULAR HEMOGLOBIN 28.6 pg (27.0-33.0); MEAN CORPUSCULAR HGB CONC 32.8 g/dl (32.0-36.5); MEAN CORPUSCULAR VOLUME 87.1 fl (80.0-96.0); MONO # 0.8 10^3/uL (0.0-0.8); MONO % 10.3 % (2.0-8.0); NEUTROPHILS # 5.3 10^3/uL (1.5-8.5); NEUTROPHILS % 70.3 % (36.0-66.0); PLATELET COUNT, AUTOMATED 200 10^3/uL (150-450); RED BLOOD COUNT 3.57 10^6/uL (4.00-5.40); WHITE BLOOD COUNT 7.6 10^3/uL (4.0-10.0)
[2024-04-19 16:54] LABS: ALKALINE PHOSPHATASE 63 U/L (46-116); ALT/SGPT < 9 U/L (7.0-40); AST/SGOT < 8 U/L (<34); BILIRUBIN,TOTAL 0.5 MG/DL (0.3-1.2); BLOOD UREA NITROGEN 29 MG/DL (9-23); CARBON DIOXIDE LEVEL 28 MMOL/L (20-31); CHLORIDE LEVEL 104 MMOL/L (98-107); CREATININE FOR GFR 1.22 MG/DL (0.55-1.30); GLOMERULAR FILTRATION RATE 45.5 (>39); GLUCOSE, FASTING 108 MG/DL (74-106); MAGNESIUM LEVEL 1.7 MG/DL (1.8-2.4); POTASSIUM SERUM 3.7 MMOL/L (3.5-5.1); SODIUM LEVEL 138 MMOL/L (136-145); TOTAL PROTEIN 5.8 G/DL (5.7-8.2)
[2024-04-19] MEDS: NS 500 ML IV ONE (18:10)
[2024-04-19 19:10] VITALS: BP 152/42
[2024-04-19 20:29] VITALS: BP 95/36; TEMP 97.7; O2SAT 95
[2024-04-19 21:25] VITALS: BP 112/32
[2024-04-20 04:39] VITALS: BP 135/44; TEMP 98.1; O2SAT 96
[2024-04-20 08:31] LABS: BASO % 0.5 % (0.0-1.0); EOS # 0.3 10^3/uL (0.0-0.5); EOS % 5.2 % (0.0-3.0); HEMATOCRIT 27.4 % (36.0-47.0); HEMOGLOBIN 9.1 g/dl (12.0-15.5); LYMPH % 15.6 % (24.0-44.0); MEAN CORPUSCULAR HGB CONC 33.2 g/dl (32.0-36.5); MEAN CORPUSCULAR VOLUME 87.3 fl (80.0-96.0); MONO # 0.7 10^3/uL (0.0-0.8); MONO % 11.3 % (2.0-8.0); NEUTROPHILS # 4.3 10^3/uL (1.5-8.5); NEUTROPHILS % 66.6 % (36.0-66.0); PLATELET COUNT, AUTOMATED 166 10^3/uL (150-450); RED BLOOD COUNT 3.14 10^6/uL (4.00-5.40); WHITE BLOOD COUNT 6.5 10^3/uL (4.0-10.0)
[2024-04-20 08:54] LABS: ALBUMIN 2.6 G/DL (3.2-5.2); ALKALINE PHOSPHATASE 55 U/L (46-116); ALT/SGPT < 9 U/L (7.0-40); AST/SGOT < 8 U/L (<34); BILIRUBIN,TOTAL 0.3 MG/DL (0.3-1.2); BLOOD UREA NITROGEN 35 MG/DL (9-23); CALCIUM LEVEL 9.3 MG/DL (8.3-10.6); CARBON DIOXIDE LEVEL 28 MMOL/L (20-31); CHLORIDE LEVEL 105 MMOL/L (98-107); CREATININE FOR GFR 1.26 MG/DL (0.55-1.30); GLOMERULAR FILTRATION RATE 43.8 (>39); GLUCOSE, FASTING 114 MG/DL (74-106); MAGNESIUM LEVEL 1.7 MG/DL (1.8-2.4); POTASSIUM SERUM 3.8 MMOL/L (3.5-5.1); SODIUM LEVEL 136 MMOL/L (136-145); TOTAL PROTEIN 5.2 G/DL (5.7-8.2)
[2024-04-20 09:30] VITALS: O2SAT 95
[2024-04-20 21:12] VITALS: BP 156/55; TEMP 97.7; O2SAT 93
[2024-04-21 05:50] VITALS: BP 124/37; TEMP 97
[2024-04-21 14:00] VITALS: BP 162/57
[2024-04-22 04:44] VITALS: BP 162/88; TEMP 97.7; O2SAT 96
[2024-04-22 12:15] VITALS: BP 160/52
[2024-04-23 04:15] VITALS: BP 140/53; TEMP 97.5; O2SAT 98
[2024-04-24 04:21] VITALS: BP 168/63; TEMP 97.5
[2024-04-24] MEDS: **hydrALAZINE** 50 MG TAB PO SCH (15:52)
[2024-04-24] MEDS: LOSARTAN 50MG TABLET PO SCH (21:00)
[2024-04-25 04:27] VITALS: BP 123/56; TEMP 97.7
[2024-04-26 04:49] VITALS: BP 141/56; TEMP 97.7; O2SAT 91
[2024-04-26 08:32] LABS: BASO % 0.5 % (0.0-1.0); EOS # 0.2 10^3/uL (0.0-0.5); EOS % 2.3 % (0.0-3.0); HEMATOCRIT 32.1 % (36.0-47.0); HEMOGLOBIN 10.3 g/dl (12.0-15.5); LYMPH # 1.1 10^3/uL (1.5-5.0); LYMPH % 14.6 % (24.0-44.0); MEAN CORPUSCULAR HEMOGLOBIN 28.5 pg (27.0-33.0); MEAN CORPUSCULAR HGB CONC 32.1 g/dl (32.0-36.5); MEAN CORPUSCULAR VOLUME 88.9 fl (80.0-96.0); MONO # 0.7 10^3/uL (0.0-0.8); MONO % 9.8 % (2.0-8.0); NEUTROPHILS # 5.4 10^3/uL (1.5-8.5); NEUTROPHILS % 71.7 % (36.0-66.0); PLATELET COUNT, AUTOMATED 229 10^3/uL (150-450); RED BLOOD COUNT 3.61 10^6/uL (4.00-5.40); WHITE BLOOD COUNT 7.5 10^3/uL (4.0-10.0)
[2024-04-26 08:56] LABS: CALCIUM LEVEL 9.9 MG/DL (8.3-10.6); CREATININE FOR GFR 1.14 MG/DL (0.55-1.30); GLOMERULAR FILTRATION RATE 49.2 (>39); MAGNESIUM LEVEL 1.9 MG/DL (1.8-2.4); POTASSIUM SERUM 3.8 MMOL/L (3.5-5.1)
[2024-04-26 09:21] VITALS: BP 146/64; TEMP 99.9; O2SAT 96
[2024-04-26 11:43] LABS: PROCALCITONIN 0.06 ng/ml
[2024-04-26] MEDS: NS 1,000 ML IV ONE (12:30)
[2024-04-26 13:52] VITALS: BP 148/50; TEMP 98.8; O2SAT 93
[2024-04-26 20:14] VITALS: BP 147/58; TEMP 98.7; O2SAT 94
[2024-04-26] MEDS: MAGNESIUM OXIDE 400MG TAB (MAG-OX) PO SCH (21:38)
[2024-04-27] MEDS ORDERED: SUCRALFATE SUSP 1GM/10ML UD As Ordered ONE (10:10)
[2024-04-27] MEDS ORDERED: **hydrALAZINE** 50 MG TAB As Ordered ONE (10:11)
[2024-04-27] MEDS ORDERED: DOCUSATE SODIUM 100MG CAPSULE As Ordered ONE (10:11)
[2024-04-27] MEDS ORDERED: PANTOPRAZOLE 40MG TAB (PROTONIX) As Ordered ONE (10:11)
[2024-04-27] MEDS ORDERED: LOSARTAN 50MG TABLET As Ordered ONE (10:11)
[2024-04-27] MEDS ORDERED: ENOXAPARIN 40MG/0.4ML SYRINGE (J1650 PER 10MG) As Ordered ONE (10:11)
[2024-04-27 13:29] LABS: BASO % 0.5 % (0.0-1.0); EOS # 0.1 10^3/uL (0.0-0.5); EOS % 1.4 % (0.0-3.0); HEMATOCRIT 32.8 % (36.0-47.0); HEMOGLOBIN 10.6 g/dl (12.0-15.5); LYMPH # 1.1 10^3/uL (1.5-5.0); LYMPH % 14.2 % (24.0-44.0); MEAN CORPUSCULAR HEMOGLOBIN 28.4 pg (27.0-33.0); MEAN CORPUSCULAR HGB CONC 32.3 g/dl (32.0-36.5); MEAN CORPUSCULAR VOLUME 87.9 fl (80.0-96.0); MONO # 0.7 10^3/uL (0.0-0.8); MONO % 8.5 % (2.0-8.0); NEUTROPHILS % 74.6 % (36.0-66.0); PLATELET COUNT, AUTOMATED 256 10^3/uL (150-450); RED BLOOD COUNT 3.73 10^6/uL (4.00-5.40)
[2024-04-27 13:59] LABS: CREATININE FOR GFR 1.15 MG/DL (0.55-1.30); GLOMERULAR FILTRATION RATE 48.7 (>39); POTASSIUM SERUM 3.6 MMOL/L (3.5-5.1)
[2024-04-27 16:25] LABS: CALCIUM LEVEL 9.8 MG/DL (8.3-10.6); CREATININE FOR GFR 1.14 MG/DL (0.55-1.30); GLOMERULAR FILTRATION RATE 49.2 (>39); POTASSIUM SERUM 3.7 MMOL/L (3.5-5.1)
[2024-04-27 16:47] LABS: HEMATOCRIT 31.4 % (36.0-47.0); HEMOGLOBIN 10.1 g/dl (12.0-15.5); MEAN CORPUSCULAR HEMOGLOBIN 28.3 pg (27.0-33.0); MEAN CORPUSCULAR HGB CONC 32.2 g/dl (32.0-36.5); PLATELET COUNT, AUTOMATED 254 10^3/uL (150-450); RED BLOOD COUNT 3.57 10^6/uL (4.00-5.40); WHITE BLOOD COUNT 7.1 10^3/uL (4.0-10.0)
[2024-04-27] MEDS: D5W 1,000 ML IV SCH (17:19)
[2024-04-27] MEDS: POTASSIUM CHLORIDE 10MEQ SR TABLET PO ONE (17:19)
[2024-04-27 19:52] VITALS: BP 126/32; TEMP 98.9; O2SAT 91
[2024-04-27] MEDS: PIPERACILLIN/TAZOBACTAM SOD 3.375 GM in D5W MINI-BAG PLUS 50 ML IV SCH (23:10)
[2024-04-28 00:53] LABS: BASO # 0.1 10^3/uL (0.0-0.2); BASO % 0.9 % (0.0-1.0); EOS # 0.2 10^3/uL (0.0-0.5); EOS % 3.1 % (0.0-3.0); HEMATOCRIT 29.1 % (36.0-47.0); HEMOGLOBIN 9.5 g/dl (12.0-15.5); LYMPH # 1.3 10^3/uL (1.5-5.0); LYMPH % 18.2 % (24.0-44.0); MEAN CORPUSCULAR HEMOGLOBIN 28.5 pg (27.0-33.0); MEAN CORPUSCULAR HGB CONC 32.6 g/dl (32.0-36.5); MEAN CORPUSCULAR VOLUME 87.4 fl (80.0-96.0); MONO # 0.8 10^3/uL (0.0-0.8); MONO % 11.1 % (2.0-8.0); NEUTROPHILS # 4.7 10^3/uL (1.5-8.5); PLATELET COUNT, AUTOMATED 223 10^3/uL (150-450); RED BLOOD COUNT 3.33 10^6/uL (4.00-5.40)
[2024-04-28 00:59] LABS: LIPASE 20 U/L (12-53)
[2024-04-28 01:01] LABS: AMYLASE 23 U/L (30-118)
[2024-04-28 01:02] LABS: ALBUMIN 2.8 G/DL (3.2-5.2); ALKALINE PHOSPHATASE 62 U/L (46-116); ALT/SGPT < 9 U/L (7.0-40); AST/SGOT < 8 U/L (<34); BILIRUBIN,TOTAL 0.3 MG/DL (0.3-1.2); BLOOD UREA NITROGEN 29 MG/DL (9-23); CALCIUM LEVEL 9.3 MG/DL (8.3-10.6); CARBON DIOXIDE LEVEL 28 MMOL/L (20-31); CHLORIDE LEVEL 107 MMOL/L (98-107); CREATININE FOR GFR 1.06 MG/DL (0.55-1.30); GLOMERULAR FILTRATION RATE 53.5 (>39); GLUCOSE, FASTING 168 MG/DL (74-106); MAGNESIUM LEVEL 1.7 MG/DL (1.8-2.4); POTASSIUM SERUM 3.5 MMOL/L (3.5-5.1); SODIUM LEVEL 139 MMOL/L (136-145); TOTAL PROTEIN 5.5 G/DL (5.7-8.2)
[2024-04-28 01:08] LABS: PROCALCITONIN 0.04 ng/ml
[2024-04-28] MEDS: MAG SULF 1GM/100ML (MAG RUN) 1 GM in IV 1 EA IV ONE (02:46)
[2024-04-28 05:24] VITALS: BP 120/40; TEMP 98.2; O2SAT 92
[2024-04-28 10:03] VITALS: BP 128/76; TEMP 99
[2024-04-28 12:00] VITALS: BP 134/82; TEMP 98.2; O2SAT 93
[2024-04-28] MEDS: ursodioL 300MG CAP PO SCH (13:53)
[2024-04-28 20:11] VITALS: BP 155/71; TEMP 98.4; O2SAT 94
[2024-04-29 04:07] VITALS: BP 158/62; TEMP 97; O2SAT 94
[2024-04-29 12:00] VITALS: BP 151/56; TEMP 97.7; O2SAT 95
[2024-04-29 19:50] VITALS: BP 168/88; TEMP 97.5; O2SAT 98
[2024-04-30 04:37] VITALS: BP 119/46; TEMP 97.3; O2SAT 92
[2024-04-30 20:02] VITALS: BP 155/45; TEMP 97.5; O2SAT 94
[2024-05-01 04:41] VITALS: BP 156/48; TEMP 97.5; O2SAT 98
[2024-05-01 12:52] VITALS: BP 153/55; TEMP 97.5; O2SAT 96
[2024-05-03 04:22] VITALS: BP 115/47; TEMP 97.5; O2SAT 95
[2024-05-04 04:38] VITALS: BP 157/60; TEMP 97.2; O2SAT 98
[2024-05-05 04:28] VITALS: BP 163/48; TEMP 97.5; O2SAT 99
[2024-05-06 05:05] VITALS: TEMP 97.3
[2024-05-07 04:47] VITALS: BP 123/70; TEMP 98.1; O2SAT 94
[2024-05-08 04:33] VITALS: BP 149/57; TEMP 97.9; O2SAT 92
[2024-05-09 04:15] VITALS: BP 142/47; TEMP 97.2; O2SAT 97
[2024-05-09 08:42] VITALS: BP 138/47
[2024-05-09 11:53] LABS: BASO % 0.6 % (0.0-1.0); EOS # 0.2 10^3/uL (0.0-0.5); EOS % 3.1 % (0.0-3.0); HEMATOCRIT 28.7 % (36.0-47.0); HEMOGLOBIN 9.5 g/dl (12.0-15.5); LYMPH # 1.2 10^3/uL (1.5-5.0); LYMPH % 16.4 % (24.0-44.0); MEAN CORPUSCULAR HEMOGLOBIN 28.8 pg (27.0-33.0); MEAN CORPUSCULAR HGB CONC 33.1 g/dl (32.0-36.5); MONO # 0.6 10^3/uL (0.0-0.8); MONO % 8.7 % (2.0-8.0); NEUTROPHILS # 4.8 10^3/uL (1.5-8.5); NEUTROPHILS % 69.1 % (36.0-66.0); PLATELET COUNT, AUTOMATED 227 10^3/uL (150-450)
[2024-05-09 12:12] LABS: ALBUMIN 2.9 G/DL (3.2-5.2); BILIRUBIN,TOTAL 0.2 MG/DL (0.3-1.2); CALCIUM LEVEL 8.7 MG/DL (8.3-10.6); CREATININE FOR GFR 1.03 MG/DL (0.55-1.30); GLOMERULAR FILTRATION RATE 55.3 (>39); MAGNESIUM LEVEL 1.5 MG/DL (1.8-2.4); POTASSIUM SERUM 3.7 MMOL/L (3.5-5.1); TOTAL PROTEIN 5.5 G/DL (5.7-8.2)
[2024-05-09] MEDS ORDERED: FLEET ENEMA PR PRN (12:55)
[2024-05-09] MEDS ORDERED: ONDANSETRON 4MG ORAL DISINTEGRATING TAB PO PRN (12:55)
[2024-05-09] MEDS ORDERED: HYOSCYAMINE SULFATE 0.125 MG SUBL TABLET PO PRN (12:55)
[2024-05-09] MEDS ORDERED: SCOPOLAMINE 1MG TRANSDERMAL PATCH TOP PRN (12:55)
[2024-05-09] MEDS: LORazepam 1 MG TAB PO PRN (14:37)
[2024-05-09] MEDS: MORPHINE 10MG/0.5ML ORAL CONCENTRATE SOLUTION U/D SL PRN (14:37)
[2024-05-10] MEDS: OLANZapine 2.5MG TABLET PO PRN (16:14)
[2024-05-16] MEDS: LORazepam 0.5 MG TAB PO PRN (05:09)
[2024-05-26] MEDS: ACETAMINOPHEN 650MG SUPP PR PRN (14:11)
[2024-05-27 12:06] VITALS: BP 142/47; TEMP 97.2; O2SAT 97
== END 2024-05-28 06:48 | disposition expired | DRG 853 ==
LOC: M ED 20:36 → EDBD 20:36 → M SDC 23:08 → M ICU 23:09 → OBSVTOIN 23:10 → M PCU 10-30 14:59 → M MS5PR 11-01 22:46 → M ICU 02-26 11:04 → M MSPAV 02-26 14:00 → M MS5PR 03-27 18:00
PROVIDERS: ADMIT Surgery; ATTEND Internal Medicine
PROC: 8E0W4CZ Robotic Assisted Procedure of Trunk Region, Percutaneous Endoscopic Approach (ICD-10-PCS; 2023-10-25)
PROC: 0W9G40Z Drainage of Peritoneal Cavity with Drainage Device, Percutaneous Endoscopic Approach (ICD-10-PCS; principal; 2023-10-25 23:30)
PROC: 30233N1 Transfusion of Nonautologous Red Blood Cells into Peripheral Vein, Percutaneous Approach (ICD-10-PCS; 2023-10-27)
PROC: 02HV33Z Insertion of Infusion Device into Superior Vena Cava, Percutaneous Approach (ICD-10-PCS; 2023-10-31)
PROC: 0W9G30Z Drainage of Peritoneal Cavity with Drainage Device, Percutaneous Approach (ICD-10-PCS; 2023-11-04)
PROC: B246ZZZ Ultrasonography of Right and Left Heart (ICD-10-PCS; 2023-11-05)
PROC: 0DB98ZX Excision of Duodenum, Via Natural or Artificial Opening Endoscopic, Diagnostic (ICD-10-PCS; 2023-12-14)
DX: A41.9 Sepsis, unspecified organism (principal); K26.5 Chronic or unspecified duodenal ulcer with perforation; N17.0 Acute kidney failure with tubular necrosis; K65.1 Peritoneal abscess; G93.41 Metabolic encephalopathy; K85.90 Acute pancreatitis without necrosis or infection, unspecified; I50.33 Acute on chronic diastolic (congestive) heart failure; R53.2 Functional quadriplegia; E87.1 Hypo-osmolality and hyponatremia; Z68.42 Body mass index [BMI] 45.0-49.9, adult; I13.0 Hypertensive heart and chronic kidney disease with heart failure and stage 1 through stage 4 chronic kidney disease, or unspecified chronic kidney disease; D62 Acute posthemorrhagic anemia; N18.4 Chronic kidney disease, stage 4 (severe); F03.911 Unspecified dementia, unspecified severity, with agitation; E87.20 Acidosis, unspecified; I31.39 Other pericardial effusion (noninflammatory); R18.8 Other ascites; J90 Pleural effusion, not elsewhere classified; J98.11 Atelectasis; I82.611 Acute embolism and thrombosis of superficial veins of right upper extremity; G72.81 Critical illness myopathy; L03.311 Cellulitis of abdominal wall; F05 Delirium due to known physiological condition; K63.2 Fistula of intestine; N30.00 Acute cystitis without hematuria; Z66 Do not resuscitate; G47.00 Insomnia, unspecified; R41.9 Unspecified symptoms and signs involving cognitive functions and awareness; E83.42 Hypomagnesemia; E66.01 Morbid (severe) obesity due to excess calories; E11.22 Type 2 diabetes mellitus with diabetic chronic kidney disease; E03.9 Hypothyroidism, unspecified; F32.A Depression, unspecified; R26.89 Other abnormalities of gait and mobility; R19.7 Diarrhea, unspecified; I25.10 Atherosclerotic heart disease of native coronary artery without angina pectoris; G47.33 Obstructive sleep apnea (adult) (pediatric); J44.9 Chronic obstructive pulmonary disease, unspecified; E11.649 Type 2 diabetes mellitus with hypoglycemia without coma; E87.6 Hypokalemia; N20.0 Calculus of kidney; K80.20 Calculus of gallbladder without cholecystitis without obstruction; K83.8 Other specified diseases of biliary tract; R33.9 Retention of urine, unspecified; I16.0 Hypertensive urgency; Z79.890 Hormone replacement therapy; Z79.84 Long term (current) use of oral hypoglycemic drugs; Z79.899 Other long term (current) drug therapy; Z11.52 Encounter for screening for COVID-19; S90.121A Contusion of right lesser toe(s) without damage to nail, initial encounter; W01.0XXA Fall on same level from slipping, tripping and stumbling without subsequent striking against object, initial encounter; Y92.230 Patient room in hospital as the place of occurrence of the external cause; R62.7 Adult failure to thrive; R57.1 Hypovolemic shock; K21.9 Gastro-esophageal reflux disease without esophagitis